=== PATIENT | male | born 1945 | race African-American/Black ===

== ENCOUNTER 2020-01-24 12:18 | Outpatient (CLI) | payer MEDICARE, SELFPAY ==
--- NOTE | 2020-01-24 13:00 | NEURO_ITS ---
TEST: ELECTROENCEPHALOGRAM DIAGNOSIS: SEIZURES PATIENT NUMBER: [id number] EEG NUMBER: [id number] RECORDING DATE: 01/24/20 CONDITION OF RECORDING: Awake, drowsy and sleep EEG DESCRIPTION: Basic resting occipital frequency consists of minimal amount of poorly organized low voltage 8-10hz alpha mixed with low voltage 15-21hz beta. During drowsiness low voltage beta activity is seen diffusely mixed with waxing and waning posterior alpha rhythms. Bilateral symmetrical sleep activity is seen during sleep. Photic stimulation produced normal drive. Nonparoxysmal. Nonfocal. Nonlateralizing. IMPRESSION: Normal record. [facility]
== END 2020-01-24 12:19 | disposition home or self-care (01) ==
PROVIDERS: PCP Internal Medicine; Visit Provider Internal Medicine
DX: G40.909 Epilepsy, unspecified, not intractable, without status epilepticus (principal)
CPT/HCPCS: 95816

== ENCOUNTER 2020-01-25 15:30 | Emergency (ER) | payer MEDICARE, SELFPAY ==
--- NOTE | ~2020-01-25 | XR_ITS ---
XR wrist RT min 3V 01/25/2020 17:38 Indication: Right wrist pain Procedure: 4 views right wrist Comparison: No prior studies for comparison. Findings: There is polyarticular osteoarthritis of the triscaphe, first CMC, MCP and IP joints. Ghislaine l mineralization. No acute fracture or traumatic malalignment. Scaphoid intact. No focal soft tissue abnormality. There are arterial calcifications. Impression: 1: Mild-moderate polyarticular osteoarthritis. Reviewed, dictated and finalized at location A. Impression: 1: Mild-moderate polyarticular osteoarthritis.
--- NOTE | ~2020-01-25 | XR_ITS ---
XR elbow RT min 3V 01/25/2020 17:37 INDICATION: Right elbow pain PROCEDURE: 4 views right elbow COMPARISON: No prior studies for comparison. FINDINGS: Fracture, dislocation or subluxation is not identified. No significant joint effusion. The soft tissues appear within normal limits. No foreign bodies are identified. IMPRESSION: 1: NO ACUTE BONE OR JOINT ABNORMALITY IDENTIFIED. Reviewed, dictated and finalized at location A.
--- NOTE | ~2020-01-25 | XR_ITS ---
XR shoulder RT min 2V 01/25/2020 17:38 Indication: Right shoulder pain. No acute injury. Procedure: 4 views right shoulder Comparison: No prior studies for comparison. Findings: There is polyarticular osteoarthritis of the glenohumeral and acromioclavicular joints with slight superior subluxation of the humeral head, suspicious for rotator cuff tear. No acute fracture or traumatic malalignment. 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 If there is clinical concern for rotator cuff tear, correlation with MRI is recommended. Reviewed, dictated and finalized at location A. 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 If there i s clinical concern for rotator cuff tear, correlation with MRI is recommended.
[2020-01-25 15:36] VITALS: BP 171/77; PULSE 50; RESP 12; TEMP 36.5; O2SAT 100
[2020-01-25 16:02] VITALS: BP 180/84; PULSE 50; RESP 14; O2SAT 91
--- NOTE | 2020-01-25 16:52 | ECG_ITS ---
Measurements Intervals [place] Rate: 60 P: 60 [place]: 155 QRS: -7 QRSD: 95 T: 17 QT: 455 QTc: 455 Interpretive Statements SINUS RHYTHM EARLY PRECORDIAL R/S TRANSITION LEFT VENTRICULAR HYPERTROPHY AND ST-T CHANGE BORDERLINE T WAVE ABNORMALITY- INF/LAT LEADS BASELINE ARTIFACT- I, II, III, AVR, AVL, AVF BORDERLINE ECG Electronically Signed On 01-26-2020 7:04:46 CDT by Familia Reynolds D.O.
[2020-01-25 17:01] VITALS: BP 173/73; PULSE 61; RESP 15; O2SAT 100
[2020-01-25 17:13] LABS: Basophils Absolute Auto 0.1 K/mm3 (0.0-0.1); Basophils Percent Auto 1.3 % (0.2-1.2); Eosinophils Absolute Auto 0.3 K/mm3 (0-0.3); Eosinophils Percent Auto 3.7 % (0-4.4); Hemoglobin 13.3 g/dL (14.0-18.0); Immature Granulocyte Absolute 0.08 K/mm3 (0.00-0.031); Immature Granulocyte Percent A 0.9 % (0-0.5); Lymphocytes Absolute Auto 2.14 K/mm3 (0.9-3.2); Lymphocytes Percent Auto 25.3 % (18.3-44.2); Mean Corpuscular HGB Conc 32.4 g/dl (32-36); Mean Corpuscular Hemoglobin 30.2 pg (26-34); Mean Platelet Volume 10.6 fl (7.4-10.4); Monocytes Absolute Auto 0.8 K/mm3 (0.1-0.6); Monocytes Percent Auto 8.9 % (2.6-8.5); Neutrophils Absolute Auto 5.1 K/mm3 (1.3-6.7); Neutrophils Percent Auto 59.9 % (45.5-73.1); Platelet Count Result 259 k/mm3 (150-375); Red Blood Count 4.41 M/mm3 (4.6-6.20); Red Cell Distribution Width 14.9 % (11.5-14.5); White Blood Count 8.5 K/mm3 (4.5-10.0)
[2020-01-25 17:25] LABS: Blood Urea Nitrogen 18 mg/dL (9-20); Carbon Dioxide 29 mmol/L (22-30); Chloride 107 mmol/L (98-107); Estimated CRCL calculation 71 ml/min; Estimated Glomerular Filt Rate > 60; Glucose 78 mg/dL (75-110); Potassium 4.1 mmol/L (3.4-5.0); Sodium 141 mmol/L (137-145)
[2020-01-25 17:33] LABS: NT Pro B Type Natriuretic Pept 85 PG/ML (5-100)
--- NOTE | 2020-01-25 17:52 | ED.UPPEXIN ---
HPI - Extremity Injury (Upper) General Chief Complaint: Extremity Injury, Upper Stated Complaint: R ARM PAIN Time Seen by Provider: 01/25/20 16:25 Source: patient Mode of arrival: EMS Limitations: dementia History of Present Illness HPI narrative: This is a 74 year old male that presents to the ER for right arm pain that started just prior to arrival. No recent injury or trauma. Per daughter patient was crying and grabbing his right arm. She called EMS and by the time they were there the patient was no longer complaining of any pain. Currently has no complaints. Denies fever, cold symptoms, chest pain, shortness of breath, abdominal pain, or vomiting. Related Data Home Medications Medication Instructions Recorded Confirmed Adult Low Dose Aspirin 81 mg PO DAILY 01/25/20 01/25/20 Keppra 500 mg PO BID 01/25/20 01/25/20 Allergies Allergy/AdvReac Type Severity Reaction Status Date / Time No Known Allergies Allergy Verified 01/25/20 15:43 Review of Systems Review of Systems: Narrative: CONSTITUTIONAL: Denies fever CARDIOVASCULAR: Denies chest pain, or edema. RESPIRATORY: Denies cough or dyspnea. GASTROINTESTINAL: Denies abdominal pain, nausea, vomiting GENITOURINARY: Denies dysuria or hematuria. MUSCULOSKELETAL: Reports joint pain, and myalgia. NEUROLOGIC: Denies numbness All systems reviewed & are unremarkable except as noted in HPI and below PMFSH Past Medical History Medical History (Updated 01/25/20 @ 18:06 by Margarette Quintero PA-C) History of CVA (cerebrovascular accident) History of seizures Social History Social History Gender identity (if verbalized by the patient): Male Exam Narrative: Exam Narrative: GENERAL: Well-appearing, well-nourished, and in no acute distress. HEAD: Normocephalic, atraumatic. EYES: PERRLA and EOMI. ENT: Nares clear, no rhinorrhea or epistaxis. Mucous membranes moist. Oropharynx without tonsillar hypertrophy exudate or other lesions. Bilateral TMs pearly rouse non-bulging NECK: Supple. No adenopathy or masses. CHEST: Clear to auscultation. No respiratory distress. No wheezes rales or rhonchi HEART: Regular rate and rhythm. No murmur heard. Normal peripheral pulses. ABDOMEN: Soft, nontender, nondistended, normal active bowel sounds. EXTREMITIES: Normal range of motion. No edema, erythema or obvious deformity. Strength equal in bilateral upper and lower extremities SKIN: Warm, dry, no rash. NEURO: No focal deficits. Alert and oriented x2. PSYCH: Normal mood and affect Course Vital Signs Vital signs: Vital Signs Temperature 97.7 F 01/25/20 15:36 Pulse Rate 50 L 01/25/20 15:36 Respiratory Rate 12 01/25/20 15:36 Blood Pressure 171/77 H 01/25/20 15:36 Pulse Oximetry 100 01/25/20 15:36 Temperature 97.7 F 01/25/20 15:36 Pulse Rate 50 L 01/25/20 15:36 Respiratory Rate 12 01/25/20 15:36 Blood Pressure 171/77 H 01/25/20 15:36 Pulse Oximetry 100 01/25/20 15:36 MDM - Extremity Injury (Upper) MDM Narrative Medical decision making narrative: Patient presents to the emergency department for right arm pain just prior to arrival. Patient with history of dementia. Accompanied by his daughter whom he lives with. Daughter reports patient was grabbing at right arm and crying about pain. No injury or trauma to the area. Patient is neurologically at his baseline. On arrival vitals are notable for high blood pressure. Patient currently has no complaints. CBC with mild normocytic anemia. Metabolic panel and BNP without acute changes. EKG with left ventricular hypertrophy. Right wrist, elbow and shoulder Xrays are without acute changes. Patient and family updated on case findings. They were instructed to follow-up with primary care doctor for high blood pressure. They were given warnings to return to the ER Lab Data Attestation: I reviewed the patient's lab results. Result diagrams: 01/25/20 17:06 01/25/20 17:06 Labs: Lab Results
[2020-01-25 18:21] VITALS: BP 170/70; PULSE 58; RESP 20; O2SAT 98
== END 2020-01-25 18:24 | disposition home or self-care (01) ==
PROVIDERS: Physician Assistant; Emergency Provider Emergency Medicine; PCP Internal Medicine
DX: M79.601 Pain in right arm (principal); F03.90 Unspecified dementia, unspecified severity, without behavioral disturbance, psychotic disturbance, mood disturbance, and anxiety; Z86.73 Personal history of transient ischemic attack (TIA), and cerebral infarction without residual deficits; M19.031 Primary osteoarthritis, right wrist; M19.011 Primary osteoarthritis, right shoulder; R94.31 Abnormal electrocardiogram [ECG] [EKG]; I51.7 Cardiomegaly
CPT/HCPCS: 36415; 73030; 73080; 73110; 80048; 83880; 85025; 93005; 99284

== ENCOUNTER 2020-04-04 20:00 | Emergency (ER) | payer SELFPAY ==
--- NOTE | ~2020-04-04 | XR_ITS ---
EXAMINATION: XR chest 1V portable INDICATION: Transient alteration of awareness TECHNIQUE: Portable AP chest at 2058 hours COMPARISON: None available FINDINGS: The lungs are free of acute opacities. There is no pleural effusion or pneumothorax. The he art size is upper limits of normal for technique. IMPRESSION: 1. No acute cardiopulmonary abnormality. Reviewed, dictated and finalized at location A.
[2020-04-04 20:05] VITALS: BP 155/75; PULSE 73; RESP 16; TEMP 36.9; O2SAT 98
--- NOTE | 2020-04-04 20:09 | ECG_ITS ---
Measurements Intervals [place] Rate: 68 P: 44 IN: 144 QRS: -12 QRSD: 86 T: 128 QT: 415 QTc: 444 Interpretive Statements SINUS RHYTHM WITH SINUS ARRHYTHMIA EARLY PRECORDIAL R/S TRANSITION LEFT VENTRICULAR HYPERTROPHY AND ST-T CHANGE BORDERLINE T WAVE ABNORMALITY- DIFFUSE LEADS BORDERLINE ECG Electronically Signed On 04-05-2020 6:52:27 CDT by Familia Reynolds D.O.
[2020-04-04 20:58] LABS: Basophils Absolute Auto 0.1 K/mm3 (0.0-0.1); Basophils Percent Auto 0.9 % (0.2-1.2); Eosinophils Percent Auto 0.7 % (0-4.4); Hematocrit 40.7 % (42.0-52.0); Hemoglobin 13.2 g/dL (14.0-18.0); Immature Granulocyte Absolute 0.03 K/mm3 (0.00-0.031); Immature Granulocyte Percent A 0.5 % (0-0.5); Lymphocytes Absolute Auto 1.75 K/mm3 (0.9-3.2); Lymphocytes Percent Auto 30.8 % (18.3-44.2); Mean Corpuscular HGB Conc 32.4 g/dl (32-36); Mean Corpuscular Hemoglobin 29.3 pg (26-34); Mean Corpuscular Volume 90.4 fl (80-100); Mean Platelet Volume 10.3 fl (7.4-10.4); Monocytes Absolute Auto 0.7 K/mm3 (0.1-0.6); Monocytes Percent Auto 12.7 % (2.6-8.5); Neutrophils Absolute Auto 3.1 K/mm3 (1.3-6.7); Neutrophils Percent Auto 54.4 % (45.5-73.1); Platelet Count Result 209 k/mm3 (150-375); Red Cell Distribution Width 14.8 % (11.5-14.5); White Blood Count 5.7 K/mm3 (4.5-10.0)
--- NOTE | 2020-04-04 21:07 | PC.NURSE ---
Spoke with patient's daughter who confirms this is his normal mental status following his CVA in 2016. She states he is usually alert and oriented x1. Updated her on his status and she stated she would call back to check on him later.
[2020-04-04 21:09] LABS: Add Urine Microscopic? YES; Appearance Urine Clear (Clear); Bacteria Urine 1+ /hpf; Bilirubin Urine Negative (Negative); Color Urine Yellow (Yellow); Glucose Urine UA Negative (Negative); Ketones Urine Negative (Negative); Leukocyte Esterase Ur 2+ LEU/UL (Negative); Mucus Urine Rare /lpf; Nitrate Urine Positive (Negative); Protein Urine Negative (Negative); Specific Grav Ur 1.023 (1.001-1.035); Urobilinogen Urine Negative mg/dL (<2.0); WBC Urine 31-50 /hpf
[2020-04-04 21:10] LABS: Alanine Aminotransferase 21 U/L (4-50); Albumin Level 3.9 g/dL (3.5-5.1); Alkaline Phosphatase 72 U/L (38-126); Aspartate Amino Transferase 21 U/L (17-59); Bilirubin,Total 0.2 mg/dL (0.2-1.3); Blood Urea Nitrogen 16 mg/dL (9-20); Calcium 8.6 mg/dL (8.4-10.2); Carbon Dioxide 25 mmol/L (22-30); Chloride 106 mmol/L (98-107); Estimated CRCL calculation 71 ml/min; Estimated Glomerular Filt Rate > 60; Glucose 159 mg/dL (75-110); Potassium 3.9 mmol/L (3.4-5.0); Sodium 138 mmol/L (137-145)
[2020-04-04 21:11] LABS: Blood Urine Negative (Negative)
[2020-04-04 21:11] LABS: Prothrombin Time 13.1 Seconds (11.1-14.7)
[2020-04-04 21:12] LABS: Partial Thromboplastin Time 29.4 SECONDS (22.3-36.8)
[2020-04-04 21:22] LABS: Troponin I 0.015 ng/mL (0.000-0.034)
[2020-04-04 21:52] VITALS: BP 149/80; PULSE 63; RESP 15; O2SAT 98
[2020-04-04 22:13] VITALS: BP 155/80; PULSE 88; RESP 16; O2SAT 98
--- NOTE | 2020-04-04 23:09 | ED.AMS ---
HPI - Altered Mental Status General Chief Complaint: Altered Mental Status Stated Complaint: AMS Time Seen by Provider: 04/04/20 20:14 History of Present Illness HPI narrative: Patient is a 79-year-old male who presents the ER from his shelter. Apparently he was found walking around him because of all the staff having left the shelter prior to shift change nobody knew if this was his normal mental status or not and he was sent here for further evaluation. Patient is alert and oriented to self and somewhat to place. He cannot give any additional history about his health. He has no complaints of pain. He has no distress at this time. Related Data Home Medications Medication Instructions Recorded Confirmed Aspir-81 04/04/20 buspirone 5 mg PO BID 04/04/20 04/04/20 levetiracetam 500 mg PO BID 04/04/20 04/04/20 memantine-donepezil [Namzaric] 1 cap PO DAILY 04/04/20 04/04/20 Allergies Allergy/AdvReac Type Severity Reaction Status Date / Time No Known Allergies Allergy Verified 04/04/20 21:46 Review of Systems Review of Systems: ROS unobtainable: Yes unobtainable due to mental status PMFSH Past Medical History Medical History (Updated 04/04/20 @ 23:15 by Severo Nieves MD) CVA (cerebral vascular accident) Dementia Surgical History Surgical History (Updated 04/04/20 @ 23:10 by Severo Nieves MD) Surgical history unknown Social History Social History (Updated 04/04/20 @ 23:13 by Severo Nieves MD) Social History: lives at [facility] Exam Narrative: Exam Narrative: GENERAL: Well-appearing, well-nourished, and in no acute distress. HEAD: Normocephalic, atraumatic. EYES: PERRL and EOMI. ENT: Mucous membranes moist. CHEST: Clear to auscultation. No respiratory distress. HEART: Regular rate and rhythm. Normal peripheral pulses. ABDOMEN: Soft, nontender, nondistended EXTREMITIES: Normal range of motion. No edema. SKIN: Warm, dry, no rash. NEURO: Alert and oriented 1-x2. Clear speech. Course Course Emergency Course: Ceftriaxone for UTI. Discharge with antibiotics. Family contacted and this is patient's normal baseline. Vital Signs Vital signs: Vital Signs Temperature 98.5 F 04/04/20 20:05 Pulse Rate 73 04/04/20 20:05 Respiratory Rate 16 04/04/20 20:05 Blood Pressure 155/75 H 04/04/20 20:05 Pulse Oximetry 98 04/04/20 20:05 Temperature 98.5 F 04/04/20 20:05 Pulse Rate 88 04/04/20 22:13 Respiratory Rate 16 04/04/20 22:13 Blood Pressure 155/80 H 04/04/20 22:13 Pulse Oximetry 98 04/04/20 22:13 MDM - Altered Mental Status Lab Data Result diagrams: 04/04/20 20:24 04/04/20 20:24 Labs: Lab Results 04/04/20 04/04/20 04/04/20 Range/Units 20:23 20:24 20:24 WBC 5.7 (4.5-10.0) K/mm3 RBC 4.50 L (4.6-6.20) M/mm3 Hgb 13.2 L (14.0-18.0) g/dL Hct 40.7 L (42.0-52.0) % MCV 90.4 (80-100) fl MCH 29.3 (26-34) pg MCHC 32.4 (32-36) g/dl RDW 14.8 H (11.5-14.5) % Plt Count 209 (150-375) k/mm3 MPV 10.3 (7.4-10.4) fl Immature Gran % (Auto) 0.5 (0-0.5) % Neut % (Auto) 54.4 (45.5-73.1) % Lymph % (Auto) 30.8 (18.3-44.2) % Crisp % (Auto) 12.7 H (2.6-8.5) % Eos % (Auto) 0.7 (0-4.4) % Baso % (Auto) 0.9 (0.2-1.2) % Lymph # (Auto) 1.75 (0.9-3.2) K/mm3 Crisp # (Auto) 0.7 H (0.1-0.6) K/mm3 Eos # (Auto) 0.0 (0-0.3) K/mm3 Baso # (Auto) 0.1 (0.0-0.1) K/mm3 Abs Immat Gran (auto) 0.03 (0.00-0.031) K/mm3 Absolute Neuts (auto) 3.1 (1.3-6.7) K/mm3 Absolute Nucleated RBC 0.0 (0.0-0.012) K/mm3 Nucleated RBC % 0.0 (0.0-0.2) % PT 13.1 (11.1-14.7) Seconds INR 1.0 APTT 29.4 (22.3-36.8) SECONDS Sodium 138 (137-145) mmol/L Potassium 3.9 (3.4-5.0) mmol/L Chloride 106 (98-107) mmol/L Carbon Dioxide 25 (22-30) mmol/L BUN 16 (9-20) mg/dL Creatinine 0.80 (0.7-1.3) mg/dL Estim Cr
[2020-04-04 23:17] VITALS: BP 157/90; PULSE 63; RESP 15; O2SAT 98
--- NOTE | 2020-04-05 00:46 | PC.NURSE ---
[facility] are unable to find the patients chart, to give me anyone to contact to provide patient a ride [place].
== END 2020-04-05 03:00 ==
PROVIDERS: Emergency Provider Emergency Medicine
DX: N39.0 Urinary tract infection, site not specified (principal); Z86.73 Personal history of transient ischemic attack (TIA), and cerebral infarction without residual deficits; F03.90 Unspecified dementia, unspecified severity, without behavioral disturbance, psychotic disturbance, mood disturbance, and anxiety
CPT/HCPCS: 36415; 51701; 71045; 80053; 81001; 84484; 85025; 85610; 85730; 87077; 87086; 87088; 87186; 93005; 96365; 99284; J0696

== ENCOUNTER 2020-11-12 10:01 | Observation (INO) | payer MEDICARE, MEDICAID, SELFPAY ==
--- NOTE | ~2020-11-12 | XR_ITS ---
EXAMINATION: XR barium swallow modified DATE: 11/13/2020 11:09 INDICATION: Dysphagia. TECHNIQUE: The patient was given barium-containing material of multiple consistencies to swallow by amy wilson speech pathologist while I performed fluoroscopy. Dose-area product was 2.66 Gy-cm2. 3.2 minutes fluoroscopy time FINDINGS: Oral Stage: Within functional limits Pharyngeal Phase: There was premature spillover into the pharynx with each swallow Mildly delayed swallows. Reduced tongue base retraction. Mild vallecular and piriform sinus residue Cervical/Esophageal Stage: Within functional limits IMPRESSION: Modified esophagram findings as above. Please refer to the speech therapy [facility]. Reviewed, dictated and finalized at Location A. Reviewed, dictated and finalized at location A. L ENGRAVER IMPRESSION: Modified esophagram findings as above. Please refer to the speech t herapy report for specific recommendations.
--- NOTE | ~2020-11-12 | MR_ITS ---
EXAMINATION: MR brain/brain stem wo/w con EXAM DATE: 11/13/2020 08:47 INDICATION: Unresponsive. TECHNIQUE: Magnetic resonance imaging (MRI) of the brain/brain stem obtained without contrast. Sagit tr T1, axial diffusion, gradient echo (T2*), T1, T2, FLAIR sequences obtained. Patient was then inj ected with 15 cc intravenous Multihance contrast. Axial and coronal postcontrast T1 weighted sequence s obtained. Correlation is made to head CT from 11/12/2020. FINDINGS: There are no areas of restricted diffusion to suggest acute infarction. There is no acute hemorrhage seen on the T2*, a hemosiderin sensitive sequence. No intraparenchymal brain mass lesion. There our moderate-sized old left occipital, and small old right occipital infarctions. Old bilater al basal ganglia infarctions better visualized on head CT. There is old small left cerebellar infarct ion. There is extensive periventricular and subcortical T2/FLAIR signal hyperintensity, nonspecific b ut probably related to small vessel ischemic disease (microangiopathy). There is moderate prominenc e of the sulci and ventricles related to cerebral atrophy. There are no extra-axial collections. F low voids are seen in the cerebral arteries on the T2-weighted sequences consistent with their expect ed patency. The orbits are unremarkable. Soft tissue is unremarkable. Suboptimal enhancement on the postcontrast sequence, with no regions of abnormal enhancement suspected. IMPRESSION: 1. Old bilateral basal ganglia and occipital, left cerebellar infarctions. 2. Chronic age related findings. Reviewed, dictated and finalized at location B. OR PRODUCT DEVELOPMENT MANAGER
--- NOTE | ~2020-11-12 | CT_ITS ---
EXAMINATION: CT brain wo con EXAM DATE: 11/12/2020 11:43 INDICATION: Altered mental status. TECHNIQUE: Spiral CT of the head was performed without contrast. Axial, coronal and sagittal images were reviewed. The dose-length product (DLP) for this examination was 605.33 mGy-cm. The exposure w as tailored according to patient size, and iterative reconstruction (ASIR) was used as additional dos e reduction technique. There is no prior study for comparison. FINDINGS: There is no acute intraparenchymal hemorrhage. No evidence of intraparenchymal brain mass lesion. No evidence of acute infarction. Please note that initial head CT has limited sensitivity f or small or acute infarctions. There is moderate-sized old left occipital lobe infarction, small old right occipital lobe infarction. There is moderate to severe periventricular and subcortical hypode nsity, nonspecific but probably related to small vessel ischemic disease. There is mild to moderate prominence of the sulci and ventricles related to cerebral atrophy. There are bilateral basal gangli a and right caudate head lacunar infarctions. There is intracranial carotid arteriosclerosis. There are no extra-axial collections. There is no mass effect or midline shift. The orbits are unremarka ble. Soft tissue is unremarkable. The visualized sinuses and mastoid air cells are well aerated. IMPRESSION: 1. No acute intracranial findings. 2. Chronic age related findings. 3. Old infarctions. Reviewed, dictated and finalized at location B. ER MACHINIST
--- NOTE | ~2020-11-12 | US_ITS ---
EXAMINATION: US carotid duplex BI DATE: 11/12/2020 17:36 INDICATION: TECHNIQUE: Grayscale, color Doppler, and pulsed Doppler images of the cervical carotid arteries were obtained. The degree of vessel stenosis is placed in one of the following categories: normal, <50%, 5 0-69%, >=70% but less than near-occlusion, near-occlusion, or total occlusion. Note that percent sten osis relative to normal distal artery lumen diameter is indirectly measured from velocity measurement s as described by Erich, et al. Radiology 2003; 229:340-346. Notes: Normal: Peak systolic velocity <125 centimeters/sec and no plaque <50%. Peak systolic velocity <125 ( EDV <40; ICA/CCA PSV ratio <2.0; used these factors only a tandem lesions or low cardiac output or co ntralateral disease) 50-69 %: PSV 125-230 (EDV 40-100; ratio 2-4) >= 70% but less than near occlusion: PSV greater than 230 (EDV > 100; ratio> 4.0) Near Occlusion: PSV that is variable; markedly narrowed lumen Occlusion: Absent flow on color/spectral Doppler and no lumen on rouse scale. COMPARISON: None. FINDINGS: RIGHT: The right common carotid artery (CCA) peak systolic velocity (PSV) is 60 cm/s. The right internal car otid artery (ICA) PSV is 65 cm/s. The right ICA end-diastolic velocity (EDV) is 23 cm/s. The right IC A/CCA PSV ratio is 1.1. The external carotid artery (ECA) PSV is 55 cm/s. There is antegrade flow in the right vertebral artery. LEFT: The left CCA PSV is 63 cm/s. The left ICA PSV is 55 cm/s. The left ICA EDV is 20 cm/s. The left ICA/C CA PSV ratio is 0.9. The ECA PSV is 52 cm/s. There is antegrade flow in the left vertebral artery. IMPRESSION: 1. Less than 50% stenosis in the right internal carotid artery by sonographic criteria. 2. Less than 50% stenosis in the left internal carotid artery by sonographic criteria. Reviewed, dictated and finalized at location A. S [employer] IMPRESSION: 1. Less than 50% stenosis in the right internal carotid artery by sonographic roosevelt goel. 2. Less than 50% stenosis in the left internal carotid artery by sonographic rebeca lopez.
--- NOTE | ~2020-11-12 | XR_ITS ---
XR chest 1V portable DATE: 11/12/2020 13:18 INDICATION: Altered mental status, stupor. TECHNIQUE: Portable upright AP chest on November 12, 2020 COMPARISON: 04/04/2020 portable AP chest FINDINGS: Minimal infiltrate or atelectasis at the lung bases; otherwise no pulmonary infiltrate or c onsolidation, pleural effusion or pulmonary vascular congestion or pneumothorax is detected. Aortic unfolding. No hilar or mediastinal enlargement. IMPRESSION: Minimal infiltrate or atelectasis at lung bases Reviewed, dictated and finalized at location A. FISHER
[2020-11-12 10:00] VITALS: BP 160/71; PULSE 65; RESP 16; TEMP 35.6; O2SAT 98
--- NOTE | 2020-11-12 10:23 | ECG_ITS ---
Measurements Intervals [place] Rate: 62 P: 52 MA: 168 QRS: -14 QRSD: 86 T: 3 QT: 421 QTc: 428 Interpretive Statements SINUS RHYTHM EARLY PRECORDIAL R/S TRANSITION LEFT VENTRICULAR HYPERTROPHY AND ST-T CHANGE BORDERLINE ST-T WAVE ABNORMALITY- DIFFUSE LEADS BASELINE WANDER- AVR, AVL, AVF BORDERLINE ECG Electronically Signed On 11-12-2020 10:32:53 LICENSED SALES PRODUCER by Familia Reynolds D.O.
[2020-11-12 10:45] LABS: Basophils Absolute Auto 0.1 K/mm3 (0.0-0.1); Basophils Percent Auto 1.2 % (0.2-1.2); Eosinophils Absolute Auto 0.2 K/mm3 (0-0.3); Eosinophils Percent Auto 3.3 % (0-4.4); Hematocrit 42.5 % (42.0-52.0); Hemoglobin 13.8 g/dL (14.0-18.0); Immature Granulocyte Absolute 0.02 K/mm3 (0.00-0.031); Immature Granulocyte Percent A 0.3 % (0-0.5); Lymphocytes Absolute Auto 1.85 K/mm3 (0.9-3.2); Lymphocytes Percent Auto 27.7 % (18.3-44.2); Mean Corpuscular HGB Conc 32.5 g/dl (32-36); Mean Corpuscular Hemoglobin 29.7 pg (26-34); Mean Corpuscular Volume 91.4 fl (80-100); Mean Platelet Volume 10.1 fl (7.4-10.4); Monocytes Absolute Auto 0.6 K/mm3 (0.1-0.6); Monocytes Percent Auto 8.4 % (2.6-8.5); Neutrophils Absolute Auto 3.9 K/mm3 (1.3-6.7); Neutrophils Percent Auto 59.1 % (45.5-73.1); Platelet Count Result 224 k/mm3 (150-375); Red Blood Count 4.65 M/mm3 (4.6-6.20); Red Cell Distribution Width 14.3 % (11.5-14.5); White Blood Count 6.7 K/mm3 (4.5-10.0)
[2020-11-12 10:47] LABS: Add Urine Microscopic? NO; Appearance Urine Clear (Clear); Bilirubin Urine Negative (Negative); Blood Urine Negative (Negative); Color Urine Yellow (Yellow); Glucose Urine UA Negative (Negative); Ketones Urine Negative (Negative); Leukocyte Esterase Ur Negative LEU/UL (Negative); Nitrate Urine Negative (Negative); Protein Urine Negative (Negative); Specific Grav Ur 1.017 (1.001-1.035); Urobilinogen Urine Negative mg/dL (<2.0)
[2020-11-12 10:56] LABS: Alanine Aminotransferase 23 U/L (4-50); Albumin Level 3.8 g/dL (3.5-5.1); Alkaline Phosphatase 56 U/L (38-126); Anion Gap 7 mmol/L (8-16); Aspartate Amino Transferase 23 U/L (17-59); Bilirubin,Total 0.5 mg/dL (0.2-1.3); Blood Urea Nitrogen 14 mg/dL (9-20); Carbon Dioxide 28 mmol/L (22-30); Chloride 107 mmol/L (98-107); Estimated CRCL calculation 57 ml/min; Estimated Glomerular Filt Rate > 60; Glucose 103 mg/dL (75-110); Potassium 3.8 mmol/L (3.4-5.0); Sodium 142 mmol/L (137-145)
--- NOTE | 2020-11-12 11:09 | ED.AMS ---
HPI - Altered Mental Status General Chief Complaint: Altered Mental Status Stated Complaint: Altered Time Seen by Provider: 11/12/20 11:08 History of Present Illness HPI narrative: 74 yo male w/ h/o CVA, seizure presents to the ED from [facility] for AMS. He was reportedly only responsive to pain. Noted to have pinpoint pupils, not on any opioids. He is reportedly normally confused but conversational. On my evaluation He is oriented x2, but somnolent. He says that he feels fine. No reported seizure activity. History limited due to mental status. Related Data Home Medications Medication Instructions Recorded Confirmed buspirone 5 mg PO BID 04/04/20 11/12/20 levetiracetam 500 mg PO BID 04/04/20 11/12/20 memantine-donepezil [Namzaric] 1 cap PO DAILY 04/04/20 11/12/20 acetaminophen 500 mg PO BID 11/12/20 11/12/20 aspirin 81 mg PO DAILY 11/12/20 11/12/20 cholecalciferol (vitamin D3) 1,250 mcg PO MONTHLY 11/12/20 11/12/20 Allergies Allergy/AdvReac Type Severity Reaction Status Date / Time No Known Allergies Allergy Verified 04/15/20 09:21 Review of Systems Review of Systems: ROS unobtainable: Yes unobtainable due to mental status PMFSH Past Medical History Medical History CVA (cerebral vascular accident) Dementia History of CVA (cerebrovascular accident) History of seizures Surgical History Surgical History Surgical history unknown Family History Family History Unknown Unknown family medical history Social History Social History Social History: lives at [facility]. The patient is listed as a full code. Smoking history not now alcohol history not known. Patient was listed as being on the penitentiary papers. he is retired. Angelica is listed as the spouse in the emergency contact number and cooper tobar is listed as the daughter in his chart. Smoking packs per day: 0.5 Smoking cigarettes per day: 10.0 Years smoked: 50 Smoking pack-years: 25.00 Smoking status: Former smoker Tobacco type: cigarettes Gender identity (if verbalized by the patient): Male Spiritual care concerns: No Exam Const: General: healthy appearing, no acute distress and alert Nutritional Appearance: well nourished Orientation/consciousness: patient oriented x3 HENMT: Mouth: Yes dry mucous membranes Eyes: Other: pupils 1 mm bilaterally Neck: Neck: normal visual inspection Chest: Chest palpation & inspection: normal inspection of the chest Resp: Effort & Inspection: normal respiratory effort Auscultation: clear to auscultation bilaterally Cardio: Rate: bradycardic Rhythm: regular rhythm GI: GI Palp: Yes Soft to palpation and No Tenderness to palpation present (GI) Skin: General skin exam: normal color Neuro: General: patient oriented x3, moves all extremities and CN's II-XI intact bilaterally Extrem: General: normal to inspection and no edema Course Vital Signs Vital signs: Vital Signs Temperature 35.6 C L 11/12/20 10:00 Pulse Rate 65 11/12/20 10:00 Respiratory Rate 16 11/12/20 10:00 Blood Pressure 160/71 H 11/12/20 10:00 Pulse Oximetry 98 11/12/20 10:00 Temperature 36.8 C 11/13/20 06:00 Pulse Rate 66 11/13/20 06:00 Respiratory Rate 16 11/13/20 06:00 Blood Pressure 168/84 H 11/13/20 06:00 Pulse Oximetry 100 11/13/20 06:00 MDM - Altered Mental Status MDM Narrative Medical decision making narrative: All testing essentially negative. Pateint has no complaints, but is not willing or able to provide additional information. Family states that this is not his usual baseline. I will plan to admit for observation due to ongoing altered mental status Differential Diagnosis Differential diagnosis: Likely delirium, dementia, hypoglycemia,
[2020-11-12] MEDS: SODIUM CHLORIDE 0.9% IV 1,000 ML 999 ML IV CONT (11:34)
[2020-11-12 12:55] LABS: Alveolar/Arterial O2 Gradient 9.3 mmHg; Base Excess ABG -0.3 mEq/l (+/-2.0); Fractional Inspired Oxygen 21 %; HCO3 ABG 23.9 mEq/l (22.0-26.0); Oxygen Content ABG 18.8 %vol (16.0-22.0); Oxygen Saturation ABG 97.4 % (95.0-100.0); Oxyhemoglobin 96.3 % THb (90.0-100.0); PCO2 ABG 38.1 mmHg (35.0-45.0); PO2 ABG 94.8 mmHg (80.0-100.0); PO2 FiO2 Ratio Arterial Blood 4.51 %; Total Hemoglobin 13.8 g/dL (12.0-18.0); pH ABG 7.416 (7.350-7.450)
[2020-11-12 12:56] LABS: Site Drawn LEFT BRACHIAL
[2020-11-12 12:57] LABS: Device ROOM AIR
[2020-11-12 14:43] VITALS: BP 136/71; PULSE 60; RESP 16; O2SAT 100
[2020-11-12 15:30] VITALS: BP 156/76; PULSE 57; RESP 16; TEMP 36.2; O2SAT 97; BMI 22.1
--- NOTE | 2020-11-12 15:30 | ADMGEN ---
This patient, Truman Jensen, was admitted to Medical Room 345-01. Patient/family oriented to hospital policies and general routines including ID bracelet, bed and alarms, visiting hours, pain management, procedures, bathroom and other care routines, personal items, smoking policy, room service/diet, and visiting hours. Information on how to activate the Rapid Response Team has been discussed. Patient/Family are encouraged to report perceived risks to care and to ask questions if they do not understand what they are told or what they should do.
[2020-11-12 16:00] VITALS: PULSE 66; BMI 25.1
--- NOTE | 2020-11-12 16:35 | PM.IMHP ---
H&P: HPI History of Present Illness Date/Time: 11/12/20 16:35 Chief Complaint: Altered mental status Narrative: Truman Jensen is a 74 year old male the patient came from [facility]. He has a history of dementia, CVA, and seizure. The patient reportedly was only responsive to pain. At that time he was noted to have pinpoint pupils but is on any opiates. Reportedly normally confused but conversational. The patient was orientated times to the emergency room however the patient will not respond to me. He told ER he felt fine. The left side was flaccid but he has a history of having a CVA. Patient CT of the brain shows no acute intracranial findings. Chronic age-related findings. Old infarctions. When I since the patient his pupils were dilated. I had to pry his eyes open because he refused to open them when I asked him to open his eyes. The patient would wiggle his fingers when I asked him. I asked him to move his legs but he refused. I had a difficult time getting him to follow commands. The patient had his eyes open at times and will look around the room. He is not answering any questions at all. ED provider felt that the patient either had the TIA, CVA or if he is now postictal from a seizure. However the patient was not witnessed to have seizure. His urine was negative for any UTI. Chest x-ray was read as minimal infiltrate or atelectasis at Lung bases. patient is being admitted for observation date of service 11/12/2020. Review of Systems Review of Systems: All systems reviewed & are unremarkable except as noted in HPI and below Constitutional: Constitutional: Reports as per HPI and Reports no additional constitutional complaints Eyes: Eyes: Reports as per HPI and Reports no additional eye complaints ENT: Reports system reviewed and no additional complaints, except as documented and Reports Normal hearing present Cardiovascular: Cardiovascular: Reports no additional cardiovascular complaints Respiratory: Respiratory: Reports no additional respiratory complaints and Reports no additional respiratory complaints Gastrointestinal: Gastrointestinal: Reports as per HPI and Reports no additional gastrointestinal complaints Musculoskeletal: Musculoskeletal: Reports no additional musculoskeletal complaints Integumentary/Breasts: Skin/Breast: Reports system reviewed and no additional complaints, except as docu and Reports as per HPI Neurologic: Reports system reviewed and no additional complaints, except as documented, Reports as per HPI and Reports Normal hearing present Psychiatric: Psychiatric: Reports no additional psychiatric complaints and Reports as per HPI Endocrine: Endocrine: Reports no additional endocrine complaints Hematologic/Lymphatic: Hematologic/Lymphatic: Reports no additional hematologic/lymphatic complaints Allergic/Immunologic: Allergic/Immunologic: Reports no additional allergic/immunologic complaints [facility] Past Medical History Medical History CVA (cerebral vascular accident) Dementia History of CVA (cerebrovascular accident) History of seizures Surgical History Surgical History Surgical history unknown Family History Family History (Updated 11/12/20 @ 16:47 by Lynne Meza NP) Unknown Unknown family medical history Social History Social History (Updated 11/12/20 @ 16:49 by Lynne Meza NP) Social History: lives at [facility]. The patient is listed as a full code. Smoking history not now alcohol history not known. Patient was listed as being on the assisted papers. he is retired. Angelica is listed as the spouse in the emergency contact number and cooper tobar is listed as the daughter in his chart. Gender identity (if verbalized by the patient): Male Meds Home Medications and Allergies Home Medicat
[2020-11-12] MEDS: LACTATED RINGERS 1,000 ML 75 ML IV CONT (18:00)
[2020-11-12 20:00] VITALS: PULSE 62
[2020-11-12 21:20] VITALS: BP 156/71; PULSE 66; RESP 16; TEMP 36.1; O2SAT 99
[2020-11-13] VITALS (8 sets, daily range): BP systolic 148–168; BP diastolic 72–84; PULSE 58–74; RESP 16–20; TEMP 36.2–36.8; O2SAT 99–100
--- NOTE | 2020-11-13 | ECHO_ITS ---
Patient Info Name: Truman Jensen Age: 74 years : 1945 Gender: Male Ht: 72 in Wt: 163 lbs BSA: 1.94 m2 HR: 59 bpm BP: 156 / 71 mmHg Heart Rhythm: Sinus Rhythm Technical Quality: Good Exam Date: 11/13/2020 10:17 AM Exam Location: [facility] Pulmonary Exam Room: 345 Patient Status: Outpatient Admit Date: 11/12/2020 Staff Ordering Physician: Lynne Meza NP Supervisor Paper Products: Opal Fernandez RDCS Attending Provider: Marlene Bonilla MD Referring Physician: Susana UGARTE; Exam Type: CA echo doppler color flow Study Info Indications - CVA AMS HTN - unresponsiveness Complete two-dimensional, color flow and Doppler transthoracic echocardiogram is performed. Summary 1. Complete two-dimensional, color flow and Doppler transthoracic echocardiogram is performed. 2. Left ventricular systolic function is normal, estimated at 55%. 3. There is mildly increased left ventricular wall thickness. 4. Hypokinesis of the basal inferior wall. 5. The left ventricular diastolic function is grade I diastolic dysfunction. 6. Left atrial chamber dimension is mildly enlarged. 7. There is trace tricuspid valve regurgitation. 8. No pulmonary hypertension, estimated pulmonary arterial systolic pressure is 29 mmHg. Left Ventricle Left ventricular chamber dimension is normal. Left ventricular systolic function is normal, estimated at 55%. There is mildly increased left ventricular wall thickness. The left ventricular diastolic function is grade I diastolic dysfunction. Hypokinesis of the basal inferior wall. Right Ventricle Right ventricular chamber dimension is normal. Right ventricular systolic function is normal. Left Atria Left atrial chamber dimension is mildly enlarged. Right Atria Right atrial chamber dimension is normal. Aortic Valve The aortic valve is not well visualized. There is no aortic valve stenosis. There is no aortic valve regurgitation. Pulmonic Valve The pulmonic valve is not well visualized. There is trace pulmonic regurgitation. Mitral Valve The mitral valve has thickened leaflets. There is trace mitral valve regurgitation. The mitral valve annulus is mildly calcified. Tricuspid Valve The tricuspid valve leaflets are normal. There is trace tricuspid valve regurgitation. No pulmonary hypertension, estimated pulmonary arterial systolic pressure is 29 mmHg. Pericardium/Pleural The pericardium appears normal. There is trivial pericardial effusion. Inferior Vena Cava Normal inferior vena cava with >50% collapse upon inspiration consistent with normal right atrial pressure, 5 mmHg. Aorta The aortic root size at the sinus of Valsalva is normal. There is mild-moderate aortic atherosclerosis. Left Ventricular Outflow Tract Name Value Normal LVOT 2D LVOT Diameter 2.1 cm LVOT Doppler LVOT Peak Gradient 4 mmHg LVOT Mean Gradient 2 mmHg LVOT VTI 22 cm LVOT VTI/AV VTI Ratio 0.8 LVOT Stroke Volume 81 ml
[2020-11-13 05:51] LABS: Basophils Absolute Auto 0.1 K/mm3 (0.0-0.1); Basophils Percent Auto 0.9 % (0.2-1.2); Eosinophils Absolute Auto 0.3 K/mm3 (0-0.3); Eosinophils Percent Auto 3.5 % (0-4.4); Hematocrit 40.5 % (42.0-52.0); Hemoglobin 13.2 g/dL (14.0-18.0); Immature Granulocyte Absolute 0.02 K/mm3 (0.00-0.031); Immature Granulocyte Percent A 0.3 % (0-0.5); Lymphocytes Absolute Auto 2.26 K/mm3 (0.9-3.2); Lymphocytes Percent Auto 30.5 % (18.3-44.2); Mean Corpuscular HGB Conc 32.6 g/dl (32-36); Mean Corpuscular Hemoglobin 28.9 pg (26-34); Mean Corpuscular Volume 88.6 fl (80-100); Mean Platelet Volume 10.2 fl (7.4-10.4); Monocytes Absolute Auto 0.6 K/mm3 (0.1-0.6); Monocytes Percent Auto 8.1 % (2.6-8.5); Neutrophils Absolute Auto 4.2 K/mm3 (1.3-6.7); Neutrophils Percent Auto 56.7 % (45.5-73.1); Platelet Count Result 233 k/mm3 (150-375); Red Blood Count 4.57 M/mm3 (4.6-6.20); Red Cell Distribution Width 13.8 % (11.5-14.5); White Blood Count 7.4 K/mm3 (4.5-10.0)
[2020-11-13 06:05] LABS: Alanine Aminotransferase 32 U/L (4-50); Albumin Level 3.6 g/dL (3.5-5.1); Alkaline Phosphatase 61 U/L (38-126); Anion Gap 5 mmol/L (8-16); Aspartate Amino Transferase 31 U/L (17-59); Bilirubin,Total 0.8 mg/dL (0.2-1.3); Blood Urea Nitrogen 14 mg/dL (9-20); Calcium 8.9 mg/dL (8.4-10.2); Carbon Dioxide 28 mmol/L (22-30); Chloride 108 mmol/L (98-107); Estimated CRCL calculation 63 ml/min; Estimated Glomerular Filt Rate > 60; Glucose 75 mg/dL (75-110); Magnesium 1.9 mg/dL (1.6-2.3); Potassium 3.8 mmol/L (3.4-5.0); Sodium 141 mmol/L (137-145)
[2020-11-13] MEDS: LACTATED RINGERS 1,000 ML 75 ML IV CONT (07:26)
--- NOTE | 2020-11-13 08:28 | PCOTNOTE ---
Attempted OT evaluation, pt currently down for MRI at this time, will attempt at later time
--- NOTE | 2020-11-13 08:35 | WPDNEURCNPN ---
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 Cerebrovascular accident 2. Seizure disorder 3. Dementia. as per the information available patient was only responsive to pain ,was noted to have pinpoint pupils but patient is also on opiates ,he was oriented to times when he came to the emergency room but otherwise did not respond very well,his left side was flaccid which was attributed to the previous stroke.initial CT scan was negative except the chronic age-related finding and old infarction. his pupils were dilated he was nonresponsive intentionally to the verbal instruction by the hospitalist for at times his eyes were open and he was looking around he was not witnessed to have any seizure on the floor. has ongoing history of stroke with dementia as mentioned before in addition to the seizures. His medications included Keppra 500 mg twice a day, BuSpar 5 mg twice a day ,memantine donepezil combination that is names 1 capsule daily,aspirin 81 mg daily. Routine blood studies were unremarkable,level is pending, carotid Doppler study was negative and CT of the head revealed small old right occipital lobe infarction with moderate to severe periventricular subcortical hypodensity and mild to moderate prominence of the sulci and ventricles secondary to cerebral atrophy Review of Systems Review of Systems: All systems reviewed & are unremarkable except as noted in HPI and below PMFSH Past Medical History Medical History CVA (cerebral vascular accident) Dementia History of CVA (cerebrovascular accident) History of seizures Surgical History Surgical History Surgical history unknown Family History Family History Unknown Unknown family medical history Social History Social History Social History: lives at [facility]. The patient is listed as a full code. Smoking history not now alcohol history not known. Patient was listed as being on the intermediate papers. he is retired. Angelica is listed as the spouse in the emergency contact number and cooper tobar is listed as the daughter in his chart. Smoking packs per day: 0.5 Smoking cigarettes per day: 10.0 Years smoked: 50 Smoking pack-years: 25.00 Smoking status: Former smoker Tobacco type: cigarettes Gender identity (if verbalized by the patient): Male Spiritual care concerns: No Meds Home Medications and Allergies Home Medications Medication Instructions Recorded Confirmed Type buspirone 5 mg PO BID 04/04/20 11/12/20 History levetiracetam 500 mg PO BID 04/04/20 11/12/20 History memantine-donepezil [Namzaric] 1 cap PO DAILY 04/04/20 11/12/20 History acetaminophen 500 mg PO BID 11/12/20 11/12/20 History aspirin 81 mg PO DAILY 11/12/20 11/12/20 History cholecalciferol (vitamin D3) 1,250 mcg PO MONTHLY 11/12/20 11/12/20 History Allergies Allergy/AdvReac Type Severity Reaction Status Date / Time No Known Allergies Allergy Verified 04/15/20 0
--- NOTE | 2020-11-13 11:54 | PCSTNOTE ---
Please refer to the Modified Barium Swallow Evaluation in the EMR.
--- NOTE | 2020-11-13 17:02 | PM.IMPN ---
Progress Note: A&P Assessment and Plan (1) Altered mental status: Code(s): R41.82 - Altered mental status, unspecified Status: Acute Assessment and Plan: Patient seems to be back to baseline however some owning this afternoon Will re start home meds CT head reviewed MRI reviewed (2) History of seizures: Code(s): Z87.898 - Personal history of other specified conditions Status: Chronic Assessment and Plan: Re started Levetiracetam (3) Dementia: Code(s): F03.90 - Unspecified dementia without behavioral disturbance Status: Chronic Assessment and Plan: Re started Memantine (4) CVA (cerebral vascular accident): Code(s): I63.9 - Cerebral infarction, unspecified Status: Acute Assessment and Plan: Old stroke 2DECHO reviewed PT/OT ordered Appreciate Neurology note. Subjective Date/time seen: 11/13/20 17:02 States that he feels well. Review of Systems Review of Systems: ROS unobtainable: Yes unobtainable due to medical condition (Dementia) Exam Narrative: Exam Narrative: Sitting in chair. Const: General: comfortable, no acute distress, alert, awake and Physically active Nutritional Appearance: thin Orientation/consciousness: oriented to person HENMT: Head: normal to inspection and normocephalic Ears: hearing grossly normal bilaterally General nose exam: Normal external nose present Face and sinus: normal facial exam Eyes: General: appearance normal, both eyes and all related structures Pupils: Equal, round and reactive pupils present EOM: EOMs intact bilaterally Neck: Neck: no lymphadenopathy, supple and no JVD Resp: Effort & Inspection: able to speak in complete sentences Auscultation: clear to auscultation bilaterally Cardio: Jugular venous distension: no JVD Rate: regular rate Rhythm: regular rhythm GI: GI Palp: Yes Soft to palpation and Yes No hepatosplenomegaly present Skin: General skin exam: normal color Wounds: no wounds Neuro: General: oriented to person and CN's II-XI intact bilaterally Cranial nerves: Yes CN's II-XII intact bilaterally and Yes Equal, round and reactive pupils present Cognition (Neuro): abnormal cognition (Dementia) Motor exam (neuro): 5/5 motor strength present throughout Extrem: General: other (L hand infiltrated iv access.) Objective Data Vital Signs Vital Signs: Vital Signs - 24 hr 11/12/20 20:00 11/12/20 21:20 11/13/20 00:00 Temperature 97.0 F L Pulse Rate 62 66 60 Respiratory Rate 16 Blood Pressure 156/71 H Pulse Oximetry 99 11/13/20 04:00 11/13/20 06:00 11/13/20 12:00 Temperature 98.3 F Pulse Rate 59 L 66 58 L Respiratory Rate 16 Blood Pressure 168/84 H Pulse Oximetry 100 11/13/20 13:24 Temperature 97.1 F L Pulse Rate 62 Respiratory Rate 20 Blood Pressure 163/81 H Pulse Oximetry 100 Intake/Output Intake/Output: Intake & Output 11/10/20 11/11/20 11/12/20 11/13/20 23:59 23:59 23:59 23:59 Intake Total 1000 2118 Balance 1000 2118 Meds/Results Radiology Results: ITS Impressions Head CT 11/12/20 11:44 IMPRESSION: 1. No acute intracranial findings. 2. Chronic age related findings. 3. Old infarctions. Chest X-Ray 11/12/20 13:22 IMPRESSION: Minimal infiltrate or atelectasis at lung bases Carotid Doppler Study 11/12/20 17:38 IMPRESSION: 1. Less than 50% stenosis in the right internal carotid artery by sonographic criteria. 2. Less than 50% stenosis in the left internal carotid artery by sonographic criteria. Brain MRI 11/13/20 09:23 IMPRESSION: 1. Old bilateral basal ganglia and occipital, left cerebellar infarctions. 2. Chronic age related findings. Modified Barium Swallow 11/13/20 11:51 IMPRESSION: Modified esophagram findings as above. Please refer to the speech therapy report for specific recommendations. Labs Labs: Laboratory Results - last 24 hr 11/13/20
[2020-11-13] MEDS: ACETAMINOPHEN 500 MG TABLET PO (18:17)
[2020-11-13] MEDS: MEMANTINE HCL XR 28 MG CAP PO (18:17)
[2020-11-13] MEDS: DONEPEZIL HCL 10 MG TABLET PO (18:17)
[2020-11-13] MEDS: busPIRone HCL 5 MG TABLET PO (18:17)
[2020-11-13] MEDS: levETIRAcetam 500 MG TABLET PO (20:18)
[2020-11-13] MEDS: HALOPERIDOL LACTATE 5 MG/ML VIAL IM (22:29)
[2020-11-14] VITALS (7 sets, daily range): BP systolic 141–165; BP diastolic 50–70; PULSE 52–87; RESP 18; TEMP 36.1–36.2; O2SAT 99–100
[2020-11-14] MEDS: busPIRone HCL 5 MG TABLET PO ×2 (10:03→16:49)
[2020-11-14] MEDS: ACETAMINOPHEN 500 MG TABLET PO ×2 (10:03→16:49)
[2020-11-14] MEDS: ASPIRIN 81 MG CHEWABLE TABLET PO (10:03)
[2020-11-14] MEDS: DONEPEZIL HCL 10 MG TABLET PO (10:04)
[2020-11-14] MEDS: levETIRAcetam 500 MG TABLET PO (10:04)
[2020-11-14] MEDS: MEMANTINE HCL XR 28 MG CAP PO (10:08)
--- NOTE | 2020-11-14 11:39 | WPDNEUROPN ---
Progress Note: A&P Assessment and Plan (1) CVA (cerebral vascular accident): Code(s): I63.9 - Cerebral infarction, unspecified Status: Acute (2) Altered mental status: Code(s): R41.82 - Altered mental status, unspecified Status: Acute (3) History of seizures: Code(s): Z87.898 - Personal history of other specified conditions Status: Chronic (4) Dementia: Code(s): F03.90 - Unspecified dementia without behavioral disturbance Status: Chronic Additional Plan is, patient an 81 mg along with the Keppra 500 q.12 hours and BuSpar 5 mg twice a day donepezil 10 mg daily memantine 28 mg daily. There has been no changes in the treatment except will require the physical therapy and occupational therapy Review of Systems Review of Systems: All systems reviewed & are unremarkable except as noted in HPI and below Exam Const: General: comfortable and no acute distress Nutritional Appearance: average body habitus and thin Orientation/consciousness: patient oriented x3 Eyes: General: appearance normal, both eyes and all related structures Neck: Neck: full ROM Resp: Effort & Inspection: normal respiratory effort and able to speak in complete sentences Auscultation: clear to auscultation bilaterally Cardio: Jugular venous distension: no JVD Rate: regular rate Rhythm: regular rhythm GI: Auscultation: normal bowel sounds Neuro: General: patient oriented x3 Cranial nerves: Yes CN's II-XII intact bilaterally Cognition (Neuro): abnormal cognition Speech: normal speech Motor exam (neuro): 5/5 motor strength present throughout ( generally decreased strength) and Normal motor muscle tone present throughout Sensory Exam: Sensory deficit (Neuro) Deep tendon reflexes (DTR's): Right triceps reflex intensity grade: 1+, Left triceps reflex intensity grade: 1+, Rt Biceps (C5, C6): 1+, Left biceps reflex intensity grade: 1+, Right brachioradialis reflex intensity grade: 1+, Left brachioradialis reflex intensity grade: 1+, Right patellar reflex intensity grade: 1+, Left patellar reflex intensity grade: 1+, Right ankle reflex intensity grade: 1+ and Left ankle reflex intensity grade: 1+ Plantar Reflex Responses: equivocal: bilateral Psych: Appearance: grossly normal Objective Data Vital Signs Vital Signs: Vital Signs - 24 hr 11/13/20 12:00 11/13/20 13:24 11/13/20 16:00 Temperature 36.2 C L Pulse Rate 58 L 62 74 Respiratory Rate 20 Blood Pressure 163/81 H Pulse Oximetry 100 11/13/20 20:00 11/13/20 20:08 11/14/20 00:00 Temperature 36.4 C L Pulse Rate 60 60 87 Respiratory Rate 18 Blood Pressure 148/72 H Pulse Oximetry 99 11/14/20 04:00 11/14/20 06:00 11/14/20 08:00 Temperature 36.1 C L Pulse Rate 55 L 55 L 52 L Respiratory Rate 18 Blood Pressure 141/50 H Pulse Oximetry 100 Intake/Output Intake/Output: Intake & Output 11/11/20 11/12/20 11/13/20 11/14/20 23:59 23:59 23:59 23:59 Intake Total 1000 2118 50 Balance 1000 2118 50 Meds/Results Medications: Active Medications Generic Name Dose Route Start Last Admin Trade Name Freq PRN Reason Stop Dose Admin Acetaminophen 500 mg 11/13/20 17:00 11/14/20 10:03 Acetaminophen 500 Mg Tablet PO 500 mg BID DEVI Administration Aspirin 81 mg 11/14/20 08:00 11/14/20 10:03 Aspirin 81 Mg Chewable Tablet PO 81 mg DAILY@0800 DEVI Administration Buspirone HCl 5 mg 11/13/20 18:10 11/14/20 10:03 Buspirone Hcl 5 Mg Tablet PO 5 mg BID DEVI Administration Donepezil HCl 10 mg 11/13/20 18:10 11/14/20 10:04 Donepezil Hcl 10 Mg Tablet PO 10 mg DAILY DEVI Administration Levetiracetam 500 mg 11/13/20 21:00 11/14/20 10:04 Levetiracetam 500 Mg Tablet PO 500 mg Q12HR DEVI Administration Memantine 28 mg 11/13/20 18:10 11/14/20 10:08 Memantine Hcl Xr 28 Mg Cap PO 28 mg DAILY DEVI Administration Radiology Results: ITS Impressions Head CT 11/12/20 11:
--- NOTE | 2020-11-14 14:32 | PM.DS ---
DS: Admitting Diagnosis Admitting Diagnosis Admitting Diagnosis: (1) Altered mental status: . (2) History of seizures: (3) Dementia: DS: Discharge Diagnosis Discharge Diagnosis (1) Altered mental status: Code(s): R41.82 - Altered mental status, unspecified Status: Acute Assessment and Plan: Resolved. (2) Dementia: Code(s): F03.90 - Unspecified dementia without behavioral disturbance Status: Chronic Assessment and Plan: Unchanged (3) History of seizures: Code(s): Z87.898 - Personal history of other specified conditions Status: Chronic Assessment and Plan: Stable (4) CVA (cerebral vascular accident): Code(s): I63.9 - Cerebral infarction, unspecified Status: Acute Assessment and Plan: Chronic DS: Summary Hospital Course Hospital Course: Truman Jensen is a 74 year old male came from [facility]. He has a history of dementia, CVA, and seizure. The patient according to staff was only responsive to pain. At that time he was noted to have pinpoint pupils but is on any opiates. He is usually confused but conversational. The patient was orientated times x [address] of the brain showed no acute intracranial findings. Work up was extensive and low yielding Patient was kept overnight for further observation and evaluation as well as treatment. He returned to his usual and discharged back to the senior living Will follow up in the outpatient setting. Time Spent with Patient Time attestation: Total time spent providing and/or coordinating discharge services: Exam Narrative: Exam Narrative: Lying in bed Const: General: comfortable, no acute distress, alert, awake and Physically active Nutritional Appearance: average body habitus and thin Orientation/consciousness: oriented to person HENMT: Head: normal to inspection and normocephalic Ears: hearing grossly normal bilaterally General nose exam: Normal external nose present Face and sinus: normal facial exam Eyes: General: appearance normal, both eyes and all related structures Pupils: Equal, round and reactive pupils present EOM: EOMs intact bilaterally Neck: Neck: no lymphadenopathy, supple and no JVD Resp: Effort & Inspection: normal respiratory effort and able to speak in complete sentences Auscultation: clear to auscultation bilaterally Cardio: Rate: regular rate Rhythm: regular rhythm GI: GI Palp: Yes Soft to palpation and Yes No hepatosplenomegaly present Skin: Rashes: no rashes Neuro: General: oriented to person and CN's II-XI intact bilaterally Cranial nerves: Yes CN's II-XII intact bilaterally and Yes Equal, round and reactive pupils present Cognition (Neuro): abnormal cognition (Dementia) Motor exam (neuro): 5/5 motor strength present throughout Extrem: General: no pedal edema DS: Data Data Completed and Pending Labs on day of discharge: Labs from last 24 hours 11/14/20 05:38 SARS-CoV-2 RNA (RT-PCR) Pending EXAMINATION: CT brain wo con EXAM DATE: 11/12/2020 11:43 INDICATION: Altered mental status. TECHNIQUE: Spiral CT of the head was performed without contrast. Axial, coronal and sagittal images were reviewed. The dose-length product (DLP) for this examination was 605.33 mGy-cm. The exposure was tailored according to patient size, and iterative reconstruction (ASIR) was used as additional dose reduction technique. There is no prior study for comparison. FINDINGS: There is no acute intraparenchymal hemorrhage. No evidence of intraparenchymal brain mass lesion. No evidence of acute infarction. Please note that initial head CT has limited sensitivity for small or acute infarctions. There is moderate-sized old left occipital lobe infarction, small old right occipital lobe infarction. There is moderate to severe periventricular and subcortical hypodensity, nonspecific but probably related to small vess
[2020-11-14 17:37] LABS: SARS-CoV-2 RNA PCR Negative
[2020-11-15 09:50] LABS: Levetiracetam Keppra 8.6 mcg/mL (12.0-46.0)
== END 2020-11-14 19:19 ==
LOC: ANHED 11:08 → ANH3MED 15:00
PROVIDERS: Emergency Medicine; Family Medicine; Nurse Practitioner; Admitting Provider Family Medicine; Emergency Provider Emergency Medicine; PCP Internal Medicine; Visit Provider Internal Medicine
DX: R41.82 Altered mental status, unspecified (principal); Z20.822 Contact with and (suspected) exposure to COVID-19; F03.90 Unspecified dementia, unspecified severity, without behavioral disturbance, psychotic disturbance, mood disturbance, and anxiety; R56.9 Unspecified convulsions; I11.9 Hypertensive heart disease without heart failure; Z87.891 Personal history of nicotine dependence; Z86.73 Personal history of transient ischemic attack (TIA), and cerebral infarction without residual deficits
CPT/HCPCS: 36415; 36600; 51701; 70450; 70553; 71045; 80053; 80177; 81003; 82728; 82805; 83735; 85025; 92611; 93005; 93306; 93880; 96360; 96361; 96372; 97161; 97165; 99285; A9270; A9577; C9803; G0378; J1630; J7030; J7120; U0003; U0005

== ENCOUNTER 2021-01-02 07:15 | Emergency (ER) | payer MEDICARE, MEDICAID, SELFPAY ==
[2021-01-02] VITALS (20 sets, daily range): BP systolic 136–180; BP diastolic 61–130; PULSE 51–69; RESP 11–19; TEMP 36.7; O2SAT 98–100
--- NOTE | ~2021-01-02 | XR_ITS ---
XR chest 1V 01/02/2021 08:00 Indication: Transient alteration of awareness Procedure: AP view of the chest Comparison: 11/12/2020 Findings: Right basilar airspace disease. Elevated right diaphragm. Cardiomegaly. Left lung clear. No significant pleural effusion or pneumothorax. No acute osseous abnormality. Impression: 1: Right basilar airspace disease may represent atelectasis and/or pneumonia. Reviewed, dictated and finalized at location A. Impression: 1: Right basilar airspace disease may represent atelectasis and/or pneumonia.
--- NOTE | ~2021-01-02 | CT_ITS ---
EXAMINATION: CT brain wo con DATE: 01/02/2021 08:02 INDICATION: Altered mental status. Patient nonverbal. TECHNIQUE: Computed tomography (CT) of the head was performed without intravenous contrast. The dose- length product was 605.33 mGy-cm. Automated exposure control and iterative reconstruction technique w ere employed. COMPARISON: CT dated 11/12/2020 FINDINGS: Large chronic left occipital lobe infarction with encephalomalacia. Right occipital lobe in farction. Generalized atrophy. There are chronic left lacunar infarctions. There are scattered severe periventricular and subcortical white matter changes, most likely related to small vessel ischemic d isease (microangiopathy). No ventriculomegaly or midline shift. Basilar cisterns are patent. Paranasa l sinuses and mastoids are pneumatized. No depressed skull fractures. There is intracranial atheroscl erosis. Midline sagittal images are unremarkable. No acute intracranial hemorrhage, infarction, mass or mass effect. IMPRESSION: 1. No acute intracranial abnormality. No significant change. Reviewed, dictated and finalized at location A.
--- NOTE | 2021-01-02 07:32 | ECG_ITS ---
Measurements Intervals [place] Rate: 55 P: 50 WI: 156 QRS: 9 QRSD: 99 T: 25 QT: 460 QTc: 443 Interpretive Statements SINUS BRADYCARDIA ATRIAL AND VENTRICULAR PREMATURE COMPLEXES BORDERLINE ST ABNORMALITY- LATERAL LEADS BORDERLINE ECG Electronically Signed On 01-02-2021 8:12:15 CDT by Familia Reynolds D.O.
--- NOTE | 2021-01-02 07:34 | ED.GENADULT ---
HPI - General Adult General Chief complaint: Altered Mental Status Stated complaint: responsive to painful stimuli Source: RN notes reviewed History of Present Illness HPI narrative: Patient presents to emergency department from [facility] via EMS for altered mental status. Patient is usually awake and alert x1 and conversive this morning the patient was responsive to pain only. Patient is unable to give any other history per nursing staff and they are going to get the patient undressed as he is fully dressed he did help to lift his hips to undress him. Patient does have a history of seizures however no seizure activity was noted at the group home Related Data Home Medications Medication Instructions Recorded Confirmed Namzaric 1 cap PO DAILY 04/04/20 11/12/20 buspirone 5 mg PO BID 04/04/20 11/12/20 levetiracetam 500 mg PO BID 04/04/20 11/12/20 acetaminophen 500 mg PO BID 11/12/20 11/12/20 aspirin 81 mg PO DAILY 11/12/20 11/12/20 cholecalciferol (vitamin D3) 1,250 mcg PO MONTHLY 11/12/20 11/12/20 Allergies Allergy/AdvReac Type Severity Reaction Status Date / Time No Known Allergies Allergy Verified 01/02/21 07:53 Review of Systems Review of Systems: ROS unobtainable: Yes unobtainable due to medical condition PMF Past Medical History Medical History CVA (cerebral vascular accident) Dementia History of CVA (cerebrovascular accident) History of seizures Surgical History Surgical History Surgical history unknown Family History Family History Unknown Unknown family medical history Social History Social History Social History: lives at [facility]. The patient is listed as a full code. Smoking history not now alcohol history not known. Patient was listed as being on the group home papers. he is retired. Angelica is listed as the spouse in the emergency contact number and cooper tobar is listed as the daughter in his chart. Smoking packs per day: 0.5 Smoking cigarettes per day: 10.0 Years smoked: 50 Smoking pack-years: 25.00 Smoking status: Former smoker Tobacco type: cigarettes Gender identity (if verbalized by the patient): Male Spiritual care concerns: No Exam Narrative: Exam Narrative: APPEARANCE: Laying in bed with eyes closed no response to verbal stimuli will moan and withdraw to painful stimuli EYES: Eyes are tightly closed shut, bilateral pupils are pinpoint and PERRL HEENT: Normocephalic, atraumatic, OMM RESPIRATORY: No respiratory distress Clear to auscultation bilaterally with no rhonchi wheezing or rales. CARDIOVASCULAR: Regular rate and rhythm without murmurs rubs or gallops. ABDOMINAL: Soft, nontender, nondistended, no rebound or guarding MUSCULOSKELETAl: No clubbing, cyanosis or edema. NEURO: No response to verbal stimuli withdraws moans to painful stimuli nonverbal SKIN:: Warm, dry. No rashes lesions or abrasions Course Course Emergency Course: Reviewed old records patient with episode of similar in November with work-up felt to be seizures the patient progressively became more awake 0915: Discussed with Dr. Bonilla for the hospitalist service this time with history of surgery of seizures is requesting that I monitor the patient for another 2 hours in the emergency department to see if the patient becomes progressively more responsive prior to admission Patient is now more awake and alert sitting up in bed he ate an entire meal tray in the emergency department and is back to his baseline per the daughter Called and discussed the Dr. Babcock presentation work-up for suspected seizure currently on Keppra 500 twice daily well increase Keppra to 750 twice daily Patient remains awake and alert in ED will discharge at this time Discussed with patient
[2021-01-02 07:59] LABS: Basophils Absolute Auto 0.1 K/mm3 (0.0-0.1); Basophils Percent Auto 0.9 % (0.2-1.2); Eosinophils Absolute Auto 0.2 K/mm3 (0-0.3); Eosinophils Percent Auto 2.7 % (0-4.4); Hematocrit 40.1 % (42.0-52.0); Hemoglobin 13.2 g/dL (14.0-18.0); Immature Granulocyte Absolute 0.06 K/mm3 (0.00-0.031); Immature Granulocyte Percent A 0.8 % (0-0.5); Lymphocytes Absolute Auto 2.77 K/mm3 (0.9-3.2); Lymphocytes Percent Auto 35.3 % (18.3-44.2); Mean Corpuscular HGB Conc 32.9 g/dl (32-36); Mean Corpuscular Hemoglobin 30.1 pg (26-34); Mean Corpuscular Volume 91.6 fl (80-100); Mean Platelet Volume 10.3 fl (7.4-10.4); Monocytes Absolute Auto 0.8 K/mm3 (0.1-0.6); Monocytes Percent Auto 10.2 % (2.6-8.5); Neutrophils Absolute Auto 3.9 K/mm3 (1.3-6.7); Neutrophils Percent Auto 50.1 % (45.5-73.1); Platelet Count Result 249 k/mm3 (150-375); Red Blood Count 4.38 M/mm3 (4.6-6.20); Red Cell Distribution Width 14.6 % (11.5-14.5); White Blood Count 7.8 K/mm3 (4.5-10.0)
[2021-01-02 08:01] LABS: Add Urine Microscopic? YES; Appearance Urine Clear (Clear); Bilirubin Urine Negative (Negative); Blood Urine 1+ (Negative); Color Urine Straw (Yellow); Glucose Urine UA Negative (Negative); Ketones Urine Negative (Negative); Leukocyte Esterase Ur Negative LEU/UL (Negative); Mucus Urine Rare /lpf; Nitrate Urine Negative (Negative); Protein Urine 1+ mg/dL (Negative); Squamous Epithelial Cell Urine Rare /hpf (Few); Urobilinogen Urine Negative mg/dL (<2.0); WBC Urine 0-3 /hpf
[2021-01-02 08:09] LABS: Prothrombin Time 13.5 Seconds (11.1-14.7)
[2021-01-02 08:10] LABS: Alanine Aminotransferase 17 U/L (4-50); Albumin Level 3.8 g/dL (3.5-5.1); Alkaline Phosphatase 57 U/L (38-126); Anion Gap 6 mmol/L (8-16); Aspartate Amino Transferase 22 U/L (17-59); Bilirubin,Total 0.5 mg/dL (0.2-1.3); Blood Urea Nitrogen 12 mg/dL (9-20); Calcium 9.2 mg/dL (8.4-10.2); Carbon Dioxide 30 mmol/L (22-30); Chloride 106 mmol/L (98-107); Estimated CRCL calculation 68 ml/min; Estimated Glomerular Filt Rate > 60; Glucose 68 mg/dL (75-110); Partial Thromboplastin Time 29.3 SECONDS (22.3-36.8); Potassium 4.2 mmol/L (3.4-5.0); Sodium 142 mmol/L (137-145)
[2021-01-02] MEDS: DEXTROSE 50% 25 GM/50 ML SYRINGE IV PUSH (08:25)
--- NOTE | 2021-01-02 09:13 | PC.NURSE ---
Attempting blood cultures. Pt lying with eyes closed, but answers some questions. A/o x2. Daughter at bedside.
[2021-01-02 09:38] LABS: Lactic Acid Reflex 0.9 mmol/L (0.7-2.1)
--- NOTE | 2021-01-02 10:18 | PC.NURSE ---
Pt has eyes open, c/o feeling hungry. Communicative with staff and daughter.
--- NOTE | 2021-01-02 10:25 | PC.NURSE ---
Pt given turkey sandwich, apple sauce, peaches, and apple juice po. Pt feeding himself without assistance.
[2021-01-02] MEDS: levETIRAcetam Tablet 250 MG, levETIRAcetam Tablet 500 MG 750 MG PO (10:56)
--- NOTE | 2021-01-02 10:56 | PC.NURSE ---
Pt's calls, states is concerned that the patient is not receiving his keppra po as scheduled. Dr. Campa made aware.
--- NOTE | 2021-01-02 11:06 | PC.NURSE ---
Report to Blaire ARORA, to continue care.
[2021-01-02 11:48] LABS: Glucose Point of Care 122 (65-105)
[2021-01-02 11:48] LABS: Glucose Point of Care 70 (65-105)
--- NOTE | 2021-01-02 12:00 | PC.NURSE ---
pt talking to granddaughter via cellphone. a&o x 3. family states pt will need ems to take pt back to [facility]. [facility] called for transport. eta 30 min
--- NOTE | 2021-01-02 12:02 | PC.NURSE ---
[facility] Accepted ETA 30min Trip# [id number]
[2021-01-05 11:20] LABS: Levetiracetam Keppra 3.3 mcg/mL (12.0-46.0)
== END 2021-01-02 12:35 ==
PROVIDERS: Emergency Provider Emergency Medicine; PCP Internal Medicine
DX: R41.82 Altered mental status, unspecified (principal); R56.9 Unspecified convulsions; Z86.73 Personal history of transient ischemic attack (TIA), and cerebral infarction without residual deficits; F03.90 Unspecified dementia, unspecified severity, without behavioral disturbance, psychotic disturbance, mood disturbance, and anxiety; Z87.891 Personal history of nicotine dependence; Z79.82 Long term (current) use of aspirin
CPT/HCPCS: 36415; 51701; 70450; 71045; 80053; 80177; 81001; 82948; 83605; 85025; 85610; 85730; 87040; 93005; 96374; 99284; A9270

== ENCOUNTER 2021-02-01 20:28 | Emergency (ER) | payer MEDICARE, MEDICAID, SELFPAY ==
--- NOTE | ~2021-02-01 | XR_ITS ---
EXAMINATION: XR chest 1V portable 02/01/2021 21:08 INDICATION: Transient alteration of awareness PROCEDURE: AP portable chest COMPARISON: 01/02/2021 FINDINGS: The lungs are clear. The cardiomediastinal silhouette is upper normal limits. There are n o pleural effusions. There is no pneumothorax suspected. IMPRESSION: 1: NO ACUTE CARDIOPULMONARY DISEASE. Reviewed, dictated and finalized at location A.
--- NOTE | ~2021-02-01 | CT_ITS ---
EXAMINATION: CT brain wo con DATE: 02/01/2021 21:03 INDICATION: Altered mental status and confusion TECHNIQUE: Computed tomography (CT) of the head was performed without intravenous contrast. The dose- length product was 605.33 mGy-cm. Automated exposure control and iterative reconstruction technique w ere employed. COMPARISON: CT dated 01/02/2021 and 11/12/2020 FINDINGS: Stable large chronic left occipital lobe infarction. Mild generalized atrophy. There are scattered se guille periventricular and subcortical white matter changes, most likely related to small vessel ischem ic disease (microangiopathy). No acute intracranial hemorrhage, infarction, mass or mass effect. No m idline shift. Basilar cisterns are patent. There is intracranial atherosclerosis. Paranasal sinuses a nd mastoids are pneumatized. IMPRESSION: 1. No acute intracranial abnormality. 2: Large chronic left occipital lobe infarction with encephalomalacia. 3: Chronic age-related findings. Reviewed, dictated and finalized at location A.
[2021-02-01 20:31] VITALS: BP 146/82; PULSE 72; RESP 19; TEMP 36.6; O2SAT 100
[2021-02-01 21:02] LABS: Basophils Absolute Auto 0.1 K/mm3 (0.0-0.1); Eosinophils Absolute Auto 0.1 K/mm3 (0-0.3); Eosinophils Percent Auto 1.5 % (0-4.4); Hematocrit 40.5 % (42.0-52.0); Hemoglobin 13.3 g/dL (14.0-18.0); Immature Granulocyte Absolute 0.04 K/mm3 (0.00-0.031); Immature Granulocyte Percent A 0.5 % (0-0.5); Lymphocytes Absolute Auto 2.41 K/mm3 (0.9-3.2); Lymphocytes Percent Auto 29.1 % (18.3-44.2); Mean Corpuscular HGB Conc 32.8 g/dl (32-36); Mean Corpuscular Hemoglobin 29.9 pg (26-34); Mean Platelet Volume 10.3 fl (7.4-10.4); Monocytes Absolute Auto 0.7 K/mm3 (0.1-0.6); Monocytes Percent Auto 8.1 % (2.6-8.5); Neutrophils Percent Auto 59.8 % (45.5-73.1); Platelet Count Result 245 k/mm3 (150-375); Red Blood Count 4.45 M/mm3 (4.6-6.20); Red Cell Distribution Width 14.5 % (11.5-14.5); White Blood Count 8.3 K/mm3 (4.5-10.0)
[2021-02-01 21:12] LABS: Anion Gap 8 mmol/L (8-16); Blood Urea Nitrogen 16 mg/dL (9-20); Calcium 9.5 mg/dL (8.4-10.2); Carbon Dioxide 26 mmol/L (22-30); Chloride 108 mmol/L (98-107); Creatine Kinase 68 U/L (55-170); Estimated CRCL calculation 65 ml/min; Estimated Glomerular Filt Rate > 60; Glucose 99 mg/dL (75-110); Potassium 4.4 mmol/L (3.4-5.0); Sodium 142 mmol/L (137-145)
[2021-02-01 21:36] VITALS: PULSE 73; RESP 19; O2SAT 99
--- NOTE | 2021-02-01 21:50 | ED.AMS ---
HPI - Altered Mental Status General Chief Complaint: Altered Mental Status Stated Complaint: found on floor/seizure Time Seen by Provider: 02/01/21 20:31 History of Present Illness HPI narrative: Patient is a 75-year-old male who presents ER after being found on the floor of his intermediate altered. Patient has history of seizure disorder. It is thought he may have had a seizure. He is oriented x0 at this time and can only intermittently follow commands. At baseline he is typically oriented follows commands without issue. Patient has no visual evidence of trauma on him. Related Data Home Medications Medication Instructions Recorded Confirmed Namzaric 1 cap PO DAILY 04/04/20 11/12/20 buspirone 5 mg PO BID 04/04/20 11/12/20 levetiracetam 500 mg PO BID 04/04/20 11/12/20 acetaminophen 500 mg PO BID 11/12/20 11/12/20 aspirin 81 mg PO DAILY 11/12/20 11/12/20 cholecalciferol (vitamin D3) 1,250 mcg PO MONTHLY 11/12/20 11/12/20 Allergies Allergy/AdvReac Type Severity Reaction Status Date / Time No Known Allergies Allergy Verified 01/02/21 07:53 Review of Systems Review of Systems: ROS unobtainable: Yes unobtainable due to medical condition PMFSH Past Medical History Medical History CVA (cerebral vascular accident) Dementia History of CVA (cerebrovascular accident) History of seizures Surgical History Surgical History Surgical history unknown Family History Family History Unknown Unknown family medical history Social History Social History Social History: lives at [facility]. The patient is listed as a full code. Smoking history not now alcohol history not known. Patient was listed as being on the intermediate papers. he is retired. Angelica is listed as the spouse in the emergency contact number and cooper tobar is listed as the daughter in his chart. Smoking packs per day: 0.5 Smoking cigarettes per day: 10.0 Years smoked: 50 Smoking pack-years: 25.00 Smoking status: Former smoker Tobacco type: cigarettes Gender identity (if verbalized by the patient): Male Spiritual care concerns: No Exam Narrative: Exam Narrative: GENERAL: Well-appearing, well-nourished, and in no acute distress. HEAD: Normocephalic, atraumatic. EYES: PERRLA and EOMI. ENT: Mucous membranes moist. CHEST: Clear to auscultation. No respiratory distress. HEART: Regular rate and rhythm. Normal peripheral pulses. ABDOMEN: Soft, nontender, nondistended. EXTREMITIES: Normal range of motion. No edema. SKIN: Warm, dry, no rash. NEURO: Likely postictal, responsive to minor stimuli and occasionally follows commands such as moving in arm. Course Reevaluation(s) Reevaluation #1: Patient resting comfortably in bed with daughter at bedside. Currently at neurologic baseline. UA negative, blood and imaging unremarkable. Patient likely breakthrough seizure. Discharge back to intermediate. Date: 02/01/21 Time: 23:36 Vital Signs Vital signs: Vital Signs Temperature 97.8 F 02/01/21 20:31 Pulse Rate 72 02/01/21 20:31 Respiratory Rate 19 02/01/21 20:31 Blood Pressure 146/82 H 02/01/21 20:31 Pulse Oximetry 100 02/01/21 20:31 Temperature 97.8 F 02/01/21 20:31 Pulse Rate 74 02/01/21 23:34 Respiratory Rate 16 02/01/21 23:34 Blood Pressure 134/61 02/01/21 23:34 Pulse Oximetry 99 02/01/21 23:34 MDM - Altered Mental Status Lab Data Result diagrams: 02/01/21 20:53 02/01/21 20:53 Labs: Lab Results 02/01/21 02/01/21 02/01/21 Range/Units 20:53 20:53 23:21 WBC 8.3 (4.5-10.0) K/mm3 RBC 4.45 L (4.6-6.20) M/mm3 Hgb 13.3 L (14.0-18.0) g/dL Hct 40.5 L (42.0-52.0) % MCV 91.0 (80-100) fl MCH 29.9 (26-34) pg
[2021-02-01 22:00] VITALS: PULSE 68; RESP 12; O2SAT 100
[2021-02-01 22:25] VITALS: PULSE 68; RESP 19; O2SAT 98
[2021-02-01 23:32] LABS: Add Urine Microscopic? YES; Appearance Urine Clear (Clear); Bilirubin Urine Negative (Negative); Blood Urine Negative (Negative); Color Urine Yellow (Yellow); Glucose Urine UA Negative (Negative); Ketones Urine Trace mg/dL (Negative); Leukocyte Esterase Ur Negative LEU/UL (Negative); Mucus Urine Rare /lpf; Nitrate Urine Negative (Negative); Protein Urine Negative (Negative); RBC Urine 0-2 /hpf (0-2); Specific Grav Ur 1.013 (1.001-1.035); Urobilinogen Urine Negative mg/dL (<2.0); WBC Urine 0-3 /hpf
[2021-02-01 23:34] VITALS: BP 134/61; PULSE 74; RESP 16; O2SAT 99
[2021-02-02 00:02] VITALS: BP 132/77; PULSE 66; RESP 20
--- NOTE | 2021-02-02 00:45 | PC.NURSE ---
called [facility] to request transport. ETA [id number]
[2021-02-02 00:46] VITALS: BP 133/60; PULSE 74; RESP 16; TEMP 36.7; O2SAT 99
[2021-02-02 01:32] VITALS: BP 134/84; PULSE 73; RESP 11
[2021-02-02 03:01] VITALS: BP 136/63; PULSE 71; RESP 12
--- NOTE | 2021-02-02 05:11 | PC.NURSE ---
called [facility] for ETA update. ETA [id number]
--- NOTE | 2021-02-02 06:06 | PC.NURSE ---
[facility] called to update ETA. ETA is drive time from [place].
--- NOTE | 2021-02-02 06:47 | PC.NURSE ---
[facility] here.
[2021-02-02 06:59] VITALS: BP 130/60; PULSE 60; RESP 16; O2SAT 100
== END 2021-02-02 06:59 | disposition home or self-care (01) ==
PROVIDERS: Emergency Provider Emergency Medicine; PCP Internal Medicine
DX: G40.909 Epilepsy, unspecified, not intractable, without status epilepticus (principal); F03.90 Unspecified dementia, unspecified severity, without behavioral disturbance, psychotic disturbance, mood disturbance, and anxiety; Z86.73 Personal history of transient ischemic attack (TIA), and cerebral infarction without residual deficits; Z79.82 Long term (current) use of aspirin; Z87.891 Personal history of nicotine dependence
CPT/HCPCS: 36415; 51701; 70450; 71045; 80048; 81001; 82550; 85025; 99284

== ENCOUNTER 2021-04-23 07:39 | Emergency (ER) | payer MEDICARE, MEDICAID, SELFPAY ==
[2021-04-23] VITALS (20 sets, daily range): BP systolic 151–177; BP diastolic 65–96; PULSE 60–74; RESP 9–17; TEMP 36.8; O2SAT 66–100
--- NOTE | ~2021-04-23 | XR_ITS ---
EXAMINATION: XR chest 1V portable DATE: 04/23/2021 08:23 INDICATION: Seizure. TECHNIQUE: A single frontal view of the chest was obtained. COMPARISON: Chest single view 02/01/2021 FINDINGS: There is mild atelectasis in the lower lung zones. No pleural effusion or pneumothorax. Car diomegaly is noted. IMPRESSION: 1. Mild atelectasis in the lower lung zones. 2. Cardiomegaly. Reviewed, dictated and finalized at location A.
--- NOTE | 2021-04-23 08:15 | ECG_ITS ---
Measurements Intervals [place] Rate: 67 P: 49 DE: 134 QRS: 17 QRSD: 86 T: 138 QT: 405 QTc: 430 Interpretive Statements SINUS RHYTHM WITH SINUS ARRHYTHMIA EARLY PRECORDIAL R/S TRANSITION BORDERLINE ST-T WAVE ABNORMALITY- ANTEROLAT/HIGH LAT LEADS BASELINE ARTIFACT- I, II, AVR BORDERLINE ECG Electronically Signed On 04-23-2021 8:18:07 CDT by Familia Reynolds D.O.
[2021-04-23 09:00] LABS: Basophils Absolute Auto 0.1 K/mm3 (0.0-0.1); Basophils Percent Auto 0.8 % (0.2-1.2); Eosinophils Absolute Auto 0.2 K/mm3 (0-0.3); Eosinophils Percent Auto 2.9 % (0-4.4); Hematocrit 36.1 % (42.0-52.0); Hemoglobin 11.8 g/dL (14.0-18.0); Immature Granulocyte Absolute 0.08 K/mm3 (0.00-0.031); Immature Granulocyte Percent A 1.1 % (0-0.5); Lymphocytes Percent Auto 19.8 % (18.3-44.2); Mean Corpuscular HGB Conc 32.7 g/dl (32-36); Mean Corpuscular Hemoglobin 29.9 pg (26-34); Mean Corpuscular Volume 91.4 fl (80-100); Mean Platelet Volume 9.4 fl (7.4-10.4); Monocytes Absolute Auto 0.8 K/mm3 (0.1-0.6); Monocytes Percent Auto 10.6 % (2.6-8.5); Neutrophils Absolute Auto 4.9 K/mm3 (1.3-6.7); Neutrophils Percent Auto 64.8 % (45.5-73.1); Platelet Count Result 213 k/mm3 (150-375); Red Blood Count 3.95 M/mm3 (4.6-6.20); Red Cell Distribution Width 14.2 % (11.5-14.5); White Blood Count 7.6 K/mm3 (4.5-10.0)
[2021-04-23 09:14] LABS: Anion Gap 5 mmol/L (8-16); Blood Urea Nitrogen 14 mg/dL (9-20); Calcium 8.9 mg/dL (8.4-10.2); Carbon Dioxide 27 mmol/L (22-30); Chloride 107 mmol/L (98-107); Estimated CRCL calculation 62 ml/min; Estimated Glomerular Filt Rate > 60; Glucose 83 mg/dL (75-110); Potassium 3.7 mmol/L (3.4-5.0); Sodium 139 mmol/L (137-145)
[2021-04-23] MEDS: carBAMazepine 200 MG TABLET PO (09:40)
[2021-04-23] MEDS: levETIRAcetam 1000MG/NACL100ML 1,000 MG/100 ML BAG 400 MG IVPB (09:40)
--- NOTE | 2021-04-23 11:08 | ED.SEIZURE ---
HPI - Seizure General Chief Complaint: Seizure Stated Complaint: AMS Time Seen by Provider: 04/23/21 07:56 History of Present Illness HPI Narrative: Patient is a 75-year-old male who presents ER with seizure activity. Was at his snf when he started seizing. Described as whole body shaking. Apparently lasted approximately 15 minutes. Patient oriented x1 for EMS. Currently oriented x2. Has history of seizures and dementia. Takes Keppra and Tegretol daily. Related Data Home Medications Medication Instructions Recorded Confirmed Namzaric 1 cap PO DAILY 04/04/20 11/12/20 buspirone 5 mg PO BID 04/04/20 11/12/20 levetiracetam 500 mg PO BID 04/04/20 11/12/20 acetaminophen 500 mg PO BID 11/12/20 11/12/20 aspirin 81 mg PO DAILY 11/12/20 11/12/20 cholecalciferol (vitamin D3) 1,250 mcg PO MONTHLY 11/12/20 11/12/20 Allergies Allergy/AdvReac Type Severity Reaction Status Date / Time No Known Allergies Allergy Verified 01/02/21 07:53 Review of Systems Review of Systems: ROS unobtainable: Yes unobtainable due to mental status PMFSH Past Medical History Medical History CVA (cerebral vascular accident) Dementia History of CVA (cerebrovascular accident) History of seizures Surgical History Surgical History Surgical history unknown Family History Family History Unknown Unknown family medical history Social History Social History Social History: lives at [facility]. The patient is listed as a full code. Smoking history not now alcohol history not known. Patient was listed as being on the snf papers. he is retired. Angelica is listed as the spouse in the emergency contact number and cooper tobar is listed as the daughter in his chart. Smoking packs per day: 0.5 Smoking cigarettes per day: 10.0 Years smoked: 50 Smoking pack-years: 25.00 Smoking status: Former smoker Tobacco type: cigarettes Gender identity (if verbalized by the patient): Male Spiritual care concerns: No Exam Narrative: Exam Narrative: GENERAL: Chronically ill-appearing, well-nourished, and in no acute distress. HEAD: Normocephalic, atraumatic. EYES: PERRL and EOMI. ENT: Mucous membranes moist. CHEST: Clear to auscultation. No respiratory distress. HEART: Regular rate and rhythm. Normal peripheral pulses. ABDOMEN: Soft, nontender, nondistended. EXTREMITIES: Normal range of motion. No edema. SKIN: Warm, dry, no rash. NEURO: Cranial nerves II through XII intact. No active tremor or seizure. Alert and oriented x2. Course Course Emergency Course: Patient is being given oral Tegretol and IV Keppra. No additional seizure activity. Alva to be breakthrough seizure. Discharge back to snf. Vital Signs Vital signs: Vital Signs Temperature 98.3 F 04/23/21 07:41 Pulse Rate 68 04/23/21 07:41 Respiratory Rate 12 04/23/21 07:41 Blood Pressure 177/68 H 04/23/21 07:41 Pulse Oximetry 99 04/23/21 07:41 Temperature 98.3 F 04/23/21 07:41 Pulse Rate 66 04/23/21 10:03 Respiratory Rate 13 04/23/21 10:03 Blood Pressure 154/75 H 04/23/21 10:03 Pulse Oximetry 100 04/23/21 10:03 MDM - Seizure Lab Data Result diagrams: 04/23/21 08:55 04/23/21 08:55 Labs: Lab Results 04/23/21 04/23/21 Range/Units 08:55 08:55 WBC 7.6 (4.5-10.0) K/mm3 RBC 3.95 L (4.6-6.20) M/mm3 Hgb 11.8 L (14.0-18.0) g/dL Hct 36.1 L (42.0-52.0) % MCV 91.4 (80-100) fl MCH 29.9 (26-34) pg MCHC 32.7 (32-36) g/dl RDW 14.2 (11.5-14.5) % Plt Count 213 (150-375) k/mm3 MPV 9.4 (7.4-10.4) fl Immature Gran % (Auto) 1.1 H (0-0.5) % Neut % (Auto) 64.8 (45.5-73.1) % Lymph % (Auto) 19.8 (18.3-44.2) % [place]
== END 2021-04-23 12:15 ==
PROVIDERS: Emergency Provider Emergency Medicine
DX: G40.909 Epilepsy, unspecified, not intractable, without status epilepticus (principal); F03.90 Unspecified dementia, unspecified severity, without behavioral disturbance, psychotic disturbance, mood disturbance, and anxiety; Z86.73 Personal history of transient ischemic attack (TIA), and cerebral infarction without residual deficits; Z87.891 Personal history of nicotine dependence; I51.7 Cardiomegaly; R94.31 Abnormal electrocardiogram [ECG] [EKG]
CPT/HCPCS: 36415; 71045; 80048; 85025; 93005; 96374; 99284; A9270; J1953

== ENCOUNTER 2021-06-03 14:09 | Observation (INO) | payer MEDICARE, MEDICAID, SELFPAY ==
[2021-06-03] VITALS (32 sets, daily range): BP systolic 134–171; BP diastolic 49–94; PULSE 46–88; RESP 9–23; TEMP 36.6; O2SAT 96–100
--- NOTE | ~2021-06-03 | CT_ITS ---
EXAMINATION: CT brain wo con EXAM DATE: 06/03/2021 14:58 INDICATION: Altered mental status. Seizure. TECHNIQUE: Spiral CT of the head was performed without contrast. Axial, coronal and sagittal images were reviewed. The dose-length product (DLP) for this examination was 605.33 mGy-cm. The exposure w as tailored according to patient size, and iterative reconstruction (ASIR) was used as additional dos e reduction technique. Comparison is made to prior examination from 01/02/2021. FINDINGS: Large old left mesial temporal occipital lobe infarction. There is no acute intraparenchyma l hemorrhage. No evidence of intraparenchymal brain mass lesion. No evidence of acute infarction. Please note that initial head CT has limited sensitivity for small or acute infarctions. Punctate old bilateral basal ganglia lacunar infarctions. There is severe periventricular and subcortical hypoden sity, nonspecific but probably related to small vessel ischemic disease. There is prominence of the sulci and ventricles related to cerebral atrophy. There is intracranial carotid arteriosclerosis. There are no extra-axial collections. There is no mass effect or midline shift. The orbits are unr emarkable. Soft tissue is unremarkable. The visualized sinuses and mastoid air cells are well aerat ed. IMPRESSION: 1. No acute intracranial findings. 2. Chronic age related findings. 3. Large old left mesial temporal occipital lobe infarction. 4. Punctate old bilateral basal ganglia lacunar infarctions. Reviewed, dictated and finalized at location A.
--- NOTE | ~2021-06-03 | MR_ITS ---
EXAMINATION: MR brain/brain stem wo/w con EXAM DATE: 06/04/2021 13:05 INDICATION: Altered mental status. TECHNIQUE: Magnetic resonance imaging (MRI) of the brain/brain stem obtained without contrast. Sagit tr T1, axial diffusion, gradient echo (T2*), T1, T2, FLAIR sequences obtained. Patient was then inj ected with 15 cc intravenous Multihance contrast. Axial and coronal postcontrast T1 weighted sequence s obtained. There is no prior study for comparison. FINDINGS: There is large old left-sided mesial temporal occipital lobe infarction. Small old right oc cipital lobe infarction. Punctate bilateral old basal ganglia lacunar infarctions. Small old left cer ebellar infarction. There are no areas of restricted diffusion to suggest acute infarction. There is no acute hemorrhage seen on the T2*, a hemosiderin sensitive sequence. No intraparenchymal brain ma ss lesion. There is moderate to severe periventricular and subcortical T2/FLAIR signal hyperintensity , nonspecific but probably related to small vessel ischemic disease (microangiopathy). There is mil d prominence of the sulci and ventricles related to cerebral atrophy. There are no extra-axial romulo ections. Flow voids are seen in the cerebral arteries on the T2-weighted sequences consistent with t heir expected patency. The orbits are unremarkable. Soft tissue is unremarkable. IMPRESSION: 1. Old infarctions. 2. Chronic age related findings. Reviewed, dictated and finalized at location A.
--- NOTE | 2021-06-03 14:19 | ECG_ITS ---
Measurements Intervals [place] Rate: 54 P: 55 [place]: 145 QRS: -6 QRSD: 88 T: 1 QT: 404 QTc: 385 Interpretive Statements SINUS BRADYCARDIA WITH MARKED SINUS ARRHYTHMIA ATRIAL PREMATURE COMPLEX NONSPECIFIC T-WAVE ABNORMALITY- INF/LAT LEADS BASELINE ARTIFACT- I, III, AVL BORDERLINE ECG Electronically Signed On 06-03-2021 17:18:49 CDT by Familia Reynolds D.O.
--- NOTE | 2021-06-03 14:28 | ED.SEIZURE ---
HPI - Seizure General Chief Complaint: Seizure Stated Complaint: Seizure Time Seen by Provider: 06/03/21 14:13 Source: patient History of Present Illness HPI Narrative: Patient presents with altered mental status. Patient is in a nursing facility has a known seizure disorder last time patient was seen normal was around 1250 there is family thinks he had a seizure and is still recovering however it was unwitnessed so they wanted to come to the ER for evaluation. Related Data Home Medications Medication Instructions Recorded Confirmed Namzaric 1 cap PO DAILY 04/04/20 11/12/20 buspirone 5 mg PO BID 04/04/20 11/12/20 levetiracetam 500 mg PO BID 04/04/20 11/12/20 acetaminophen 500 mg PO BID 11/12/20 11/12/20 aspirin 81 mg PO DAILY 11/12/20 11/12/20 cholecalciferol (vitamin D3) 1,250 mcg PO MONTHLY 11/12/20 11/12/20 Allergies Allergy/AdvReac Type Severity Reaction Status Date / Time No Known Allergies Allergy Verified 06/03/21 14:34 Review of Systems Review of Systems: ROS unobtainable: Yes unobtainable due to mental status PMFSH Past Medical History Medical History CVA (cerebral vascular accident) Dementia History of CVA (cerebrovascular accident) History of seizures Surgical History Surgical History Surgical history unknown Family History Family History Unknown Unknown family medical history Social History Social History Social History: lives at [facility]. The patient is listed as a full code. Smoking history not now alcohol history not known. Patient was listed as being on the prison papers. he is retired. Angelica is listed as the spouse in the emergency contact number and cooper tobar is listed as the daughter in his chart. Smoking packs per day: 0.5 Smoking cigarettes per day: 10.0 Years smoked: 50 Smoking pack-years: 25.00 Smoking status: Former smoker Tobacco type: cigarettes Gender identity (if verbalized by the patient): Male Spiritual care concerns: No Exam Narrative: GENERAL: Appears chronically ill and in no acute distress. HEAD: Normocephalic, atraumatic. EYES: Pupils are small and minimally reactive but symmetric and EOMI. ENT: Nares clear, no rhinorrhea or epistaxis. Mucous membranes moist. NECK: Supple. No masses. CHEST: Clear to auscultation. No respiratory distress. No wheezes rales or rhonchi HEART: Regular rate and rhythm. No murmur heard. Normal peripheral pulses. ABDOMEN: Soft, nontender, nondistended, normal active bowel sounds. SKIN: Warm, dry, no rash. NEURO: Localizes to noxious stimuli not responding to verbal commands opens eyes spontaneously Course Reevaluation(s) Reevaluation #1: attempting to contact nursing facility. Pat is easily arousable and response to questions pt is alert and oriented to self. Date: 06/03/21 Time: 19:04 Reevaluation #2: Confirmed baseline mental status with Nursing facility. patient is verbal and responds to questions but does not answer questions correctly pt usually oriented to self Date: 06/03/21 Time: 20:15 Reevaluation #3: Family came to bedside reported patient continues to be altered. Family reported that the patient is usually up walking around and conversing with them. Given family's report of continued altered mental status Case was discussed with hospitalist team and neurology patient will be admitted for observation EEG and MRI to further evaluate altered mental status Date: 06/03/21 Time: 20:32 Vital Signs Vital signs: Vital Signs Temperature 36.6 C 06/03/21 14:15 Pulse Rate 53 L 06/03/21 14:15 Respiratory Rate 14 06/03/21 14:15 Blood Pressure 134/61 06/03/21 14:15 Pulse Oximetry 98 06/03/21 14:15 Temperature 36.6 C 06/03/21 14:15 Pulse
[2021-06-03] MEDS: NALOXONE HCL 0.4 MG/ML VIAL IV PUSH (14:30)
[2021-06-03] MEDS: SODIUM CHLORIDE 0.9% IV 1,000 ML 999 ML IV CONT (14:33)
[2021-06-03 15:17] LABS: Amphetamine Screen Urine Negative (Negative); Barbiturate Screen Urine Negative (Negative); Benzodiazepines Screen Urine Negative (Negative); Cannabinoid Screen Urine Negative (Negative); Cocaine Screen Urine Negative (Negative); Methadone Screen Urine Negative (Negative); Opiate Screen Urine Negative (Negative); Phencyclidine Screen Urine Negative (Negative)
[2021-06-03 15:41] LABS: Basophils Absolute Auto 0.1 K/mm3 (0.0-0.1); Basophils Percent Auto 1.1 % (0.2-1.2); Eosinophils Absolute Auto 0.2 K/mm3 (0-0.3); Eosinophils Percent Auto 3.7 % (0-4.4); Hematocrit 35.1 % (42.0-52.0); Hemoglobin 11.1 g/dL (14.0-18.0); Immature Granulocyte Absolute 0.02 K/mm3 (0.00-0.031); Immature Granulocyte Percent A 0.4 % (0-0.5); Lymphocytes Absolute Auto 1.47 K/mm3 (0.9-3.2); Lymphocytes Percent Auto 26.9 % (18.3-44.2); Mean Corpuscular HGB Conc 31.6 g/dl (32-36); Mean Corpuscular Hemoglobin 30.1 pg (26-34); Mean Corpuscular Volume 95.1 fl (80-100); Mean Platelet Volume 9.8 fl (7.4-10.4); Monocytes Absolute Auto 0.6 K/mm3 (0.1-0.6); Monocytes Percent Auto 10.4 % (2.6-8.5); Neutrophils Absolute Auto 3.1 K/mm3 (1.3-6.7); Neutrophils Percent Auto 57.5 % (45.5-73.1); Platelet Count Result 189 k/mm3 (150-375); Red Blood Count 3.69 M/mm3 (4.6-6.20); Red Cell Distribution Width 14.2 % (11.5-14.5); White Blood Count 5.5 K/mm3 (4.5-10.0)
[2021-06-03 15:47] LABS: Acetaminophen < 10 ug/mL (10-30); Ethanol < 10 mg/dL (<10); Salicylate < 1.0 mg/dL (2-20)
[2021-06-03 15:48] LABS: Alanine Aminotransferase 11 U/L (4-50); Albumin Level 3.1 g/dL (3.5-5.1); Alkaline Phosphatase 70 U/L (38-126); Anion Gap 6 mmol/L (8-16); Aspartate Amino Transferase 38 U/L (17-59); Bilirubin,Total 0.2 mg/dL (0.2-1.3); Blood Urea Nitrogen 15 mg/dL (9-20); Calcium 8.4 mg/dL (8.4-10.2); Carbon Dioxide 25 mmol/L (22-30); Chloride 106 mmol/L (98-107); Estimated CRCL calculation 81 ml/min; Estimated Glomerular Filt Rate > 60; Glucose 116 mg/dL (65-110); Potassium 3.8 mmol/L (3.4-5.0); Sodium 137 mmol/L (137-145)
[2021-06-03 15:53] LABS: Add Urine Microscopic? YES; Appearance Urine Clear (Clear); Bilirubin Urine 1+ (Negative); Blood Urine 1+ (Negative); Color Urine Yellow (Yellow); Glucose Urine UA Negative (Negative); Ketones Urine Negative (Negative); Leukocyte Esterase Ur Negative LEU/UL (Negative); Nitrate Urine Negative (Negative); Protein Urine Negative (Negative); Specific Grav Ur 1.025 (1.001-1.035); pH Urine 5.5 (5.0-9.0)
--- NOTE | 2021-06-03 15:53 | PC.NURSE ---
[facility] Dr. Kenyon, neurologist Dr. Lockett [phone] Per family patient had MRI at [facility] in April
[2021-06-03 17:09] LABS: Mucus Urine Few /lpf; Squamous Epithelial Cell Urine Few /hpf (Few); WBC Urine 0-3 /hpf
--- NOTE | 2021-06-03 18:02 | PC.NURSE ---
Attempting to call [facility] at this time x3 without answer.
[2021-06-03] MEDS: SODIUM CHLORIDE 0.9% IV 1,000 ML 125 ML IV CONT (23:34)
[2021-06-04] VITALS (11 sets, daily range): BP systolic 102–156; BP diastolic 42–70; PULSE 50–100; RESP 16–18; TEMP 35.8–37.1; O2SAT 95–99; BMI 24.8
--- NOTE | 2021-06-04 00:22 | PM.IMHP ---
H&P: HPI History of Present Illness Date/Time: 06/04/21 00:22 Chief Complaint: Altered mental status Narrative: 75-year-old male with past medical history of multiple CVAs, dementia, seizure disorder, and Parkinson's disease who presented to the ER via EMS from [facility] due to altered mental status. The patient evidently was at his baseline just before 1:00 p.m. when he was wrists returned to his room after lunch. When staff checked on him at 1:30 a.m. he was found to be not responding or talking. The patient's family reports that the patient is usually up ambulatory and walking. He state that he had not returned to his baseline delay wanted him brought to the ER for evaluation. The long-term staff reports that the patient sleeps much of the time but will have periods of being awake. The patient reportedly has not missed any of his seizure medications. In the ER CT scan of the brain was performed and demonstrated no acute process. Patient was afebrile and had no other acute process identified that could explain his altered mental status. Family was adamant patient had not returned to baseline and patient was subsequently admitted as observation with neurology consult. Neurologist recommended MRI and EEG in a.m.. Patient will be continued on his home anti epileptics dosing until EEG results are known, unless a recurrent seizures witnessed. Review of Systems Review of Systems: ROS unobtainable: Yes unobtainable due to mental status PMFSH Past Medical History Medical History CVA (cerebral vascular accident) Dementia History of CVA (cerebrovascular accident) History of seizures Surgical History Surgical History Surgical history unknown Family History Family History Unknown Unknown family medical history Social History Social History Social History: He resides at [facility]. The patient is listed as a full code. Patient was listed as being on the long-term papers. Angelica is listed as the spouse in the emergency contact number. Cassandra Messer is listed as the daughter in his chart. Smoking packs per day: 0.5 Smoking cigarettes per day: 10.0 Years smoked: 50 Smoking pack-years: 25.00 Smoking status: Former smoker Alcohol intake: never Substance use: never Occupation/Education: retired Gender identity (if verbalized by the patient): Male Spiritual care concerns: No Meds Home Medications and Allergies Home Medications Medication Instructions Recorded Confirmed Type Namzaric 1 cap PO DAILY 04/04/20 06/04/21 History aspirin 81 mg PO DAILY 11/12/20 06/03/21 History cholecalciferol (vitamin D3) 1,250 mcg PO MONTHLY 11/12/20 06/04/21 History amlodipine 5 mg PO DAILY 06/03/21 06/04/21 History carbamazepine 400 mg PO BID 06/03/21 06/04/21 History carbidopa-levodopa 1 tablet PO TID 06/03/21 06/04/21 History levetiracetam [Keppra] 1,500 mg PO BID 06/04/21 06/04/21 History Allergies Allergy/AdvReac Type Severity Reaction Status Date / Time No Known Allergies Allergy Verified 06/03/21 23:58 Vital Signs Vital Signs - 24 hr 06/03/21 14:15 06/03/21 14:18 06/03/21 15:52 Temperature 97.8 F Pulse Rate 53 L 54 L 62 Respiratory Rate 14 13 Blood Pressure 134/61 141/62 H Pulse Oximetry 98 97 06/03/21 17:29 06/03/21 18:56 06/03/21 19:00 Temperature Pulse Rate 88 49 L 50 L Respiratory Rate 23 H 11 L 12 Blood Pressure 159/94 H 161/62 H Pulse Oximetry 96 98 06/03/21 19:02 06/03/21 19:19 06/03/21 19:30 Temperature Pulse Rate 49 L 51 L 49 L Respiratory Rate 14 17 Blood Pressure 154/86 H Pulse Oximetry 98 100 06/03/21 19:32 06/03/21 19:49 06/03/21 20:14 Temperature Pulse Rate 50 L 46
[2021-06-04] MEDS: SODIUM CHLORIDE 0.9% IV 1,000 ML 125 ML IV CONT (09:42)
[2021-06-04] MEDS: ASPIRIN 81 MG CHEWABLE TABLET PO (09:43)
[2021-06-04] MEDS: CARBIDOPA/LEVODOPA 25/100 MG TABLET 1 TABLET PO ×3 (09:45→17:24)
[2021-06-04] MEDS: carBAMazepine 200 MG TABLET 400 MG PO ×2 (09:46→17:24)
[2021-06-04] MEDS: amLODIPine BESYLATE 5 MG TABLET PO (09:46)
[2021-06-04] MEDS: levETIRAcetam 500 MG TABLET 1500 MG PO ×2 (09:46→20:09)
--- NOTE | 2021-06-04 10:16 | WPDNEUROLOGY ---
Neurology EEG Report General Information Date of Study: 06/04/21 TEST eeg DIAGNOSIS Change in the mental status CONDITION OF RECORDING unresponsive EEG NUMBER [id number] CLINICAL HISTORY brought in for being unresponsive EEG DESCRIPTION whole record consists of low-voltage 15 to 21 hertz per 2nd beta activity admixed with multiple artifacts. Hyperventilation not done. Photic stimulation not done. His study was done at the bedside with patient being unresponsive. Non paroxysmal. Nonfocal. Nonlateralizing. IMPRESSION Abnormal record due to the absence of the normal background rhythm. There is no evidence of focal slow activity to consider the possibility of focal brain insult one side or other side and also there is no evidence of paroxysmal discharge clinical correlation recommended finding could be suggestive of underlying organic or metabolic encephalopathy or postictal state. for S
--- NOTE | 2021-06-04 16:08 | PM.DS ---
DS: Admitting Diagnosis Admitting Diagnosis Confusion DS: Discharge Diagnosis Discharge Diagnosis (1) Seizure disorder: Code(s): G40.909 - Epilepsy, unspecified, not intractable, without status epilepticus Status: Acute Assessment and Plan: Patient has a history of seizures. He is established with neurologist Dr. Miller. He had a suspected seizure at his nursing facility, though this was unwitnessed and had subsequent confusion. Head CT with no acute findings, brain MRI also with no acute findings with evidence of old infarcts. EEG showed findings consistent with postictal state. He was seen in consultation by Neurology. I discussed the case with Dr. Babcock who recommended continuing his current treatment regimen of Keppra 1500 mg BID and carbamazepine 400 mg BID. I spoke with his neurologist office via phone to provide updates. He has an extended EEG upcoming in 2 weeks. Continue follow up with his neurologist. (2) Dementia: Qualifiers: Dementia behavioral disturbance: without behavioral disturbance Dementia type: vascular dementia Qualified Code(s): F01.50 - Vascular dementia without behavioral disturbance Code(s): F03.90 - Unspecified dementia without behavioral disturbance Status: Chronic Assessment and Plan: He is typically A&Ox2 per intermediate staff. He was oriented to himself during my exam. He did not know we were [facility] but he could tell me where he lives and this could have simply been due to unfamiliar surroundings. Overall, seemed to be consistent with baseline. Continue Namzaric. (3) Sinus bradycardia: Code(s): R00.1 - Bradycardia, unspecified Status: Acute Assessment and Plan: EKG on presentation reviewed which showed sinus bradycardia. He had some episodes of bradycardia ranging from 47-50s. He remained asymptomatic with this. On review of prior hospital stays, it appears to be chronic. He is not on any medications known to cause bradycardia. TSH wnl. Discussed with intermediate staff who report MA physician aware of this. Continue outpatient monitoring of facility and consider cardiology referral if persistent. HR in the 70s at time of discharge. DS: Summary Hospital Course Hospital Course: Date of admission: 06/03/2021 Date of discharge: 06/04/2021 Truman Jensen is an 85-year-old male with a history of seizure disorder, CVA, and dementia who presented to the emergency department on 06/03/2021 from intermediate due to concerns for seizure with subsequent confusion. On presentation to the emergency department, his vital signs were stable, he was afebrile, H&H slightly decreased with additional CBC and BMP unremarkable, head CT with no acute intracranial findings evidence of large old left him for Karishma brittle lobe infarction and punctate old lacunar infarctions. He was admitted to the hospitalist service for further evaluation and management was seen in consultation by Neurology. Please see above for further details. His confusion was felt to be related to postictal state. He remained somewhat confused given his dementia, but overall felt to be at his baseline following discussions with patient , daughter, and intermediate staff. Given his returne to baseline, he was determined to no longer require inpatient care was felt to be stable for discharge. I spoke with his via phone and with his daughter who was visiting to discussed worrisome signs and symptoms for which to return and educated on his medications. He has follow-up scheduled with his neurologist and will be seen by the intermediate physician in follow-up. He was discharged in hemodynamically stable condition on 06/04/2021. Status at Discharge Functional status at discharge: wheelchair bound Overall status at discharge: patient is progressing back to baseline Time Spent with Patient Time attestation: Total time spent providing and/or coordinating discharg
--- NOTE | 2021-06-04 16:48 | WPDNEURCNPN ---
Assessment and Plan Additional Plan continue the treatment as such with a fixed neurological deficit from the previous stroke though he has a likely candidate for seizure but there was no specific documented history of seizures treatment will be continued as such Consult date: 06/04/21 Time Seen: 10:00 HPI: Truman Jensen is a 75 year old male admitted to the hospital with the complaints of change in the mental status in addition to the history of multiple stroke in the past with underlying dementia, seizure disorder, and Parkinson's disease he was transferred to the hospital emergency room on the [facility] for the complaints of change in the mental status without having had any obvious documented seizures and was not able to return to his baseline reportedly he was sleeping most of the time and had not missed any seizure medication initial CT scan in the emergency room was negative subsequently MRI of the brain has been done after the admission which documented the left-sided mesial temporal occipital lobe infarction in addition to small old right occipital lobe infarction as well and also bilateral basal ganglia lacunar infarct also left cerebellar infarct there was no evidence of the bleed there was no evidence of the hydrocephalus though the prominence of sulci and ventricles were noted because of the central atrophy and initial CT scan of the head has also documented the large old left mesial temporal occipital lobe infarction along with deep old bilateral basal gangliar lacunar infarcts routine blood studies revealed no leukocytosis hemoglobin was 11.1 with platelet count 189 and basic metabolic panel fairly normal with blood sugar only 116 and also UA was negative Review of Systems Review of Systems: All systems reviewed & are unremarkable except as noted in HPI and below PMFSH Past Medical History Medical History CVA (cerebral vascular accident) Dementia History of CVA (cerebrovascular accident) History of seizures Surgical History Surgical History Surgical history unknown Family History Family History Unknown Unknown family medical history Social History Social History Social History: He resides at [facility]. The patient is listed as a full code. Patient was [facility] as being on [facility] papers. Angelica is listed as the spouse in the emergency contact number. Cassandra Messer is listed as the daughter in his chart. Smoking packs per day: 0.5 Smoking cigarettes per day: 10.0 Years smoked: 50 Smoking pack-years: 25.00 Smoking status: Former smoker Alcohol intake: never Substance use: never Occupation/Education: retired Gender identity (if verbalized by the patient): Male Spiritual care concerns: No Meds Home Medications and Allergies Home Medications Medication Instructions Recorded Confirmed Type Namzaric 1 cap PO DAILY 04/04/20 06/04/21 History aspirin 81 mg PO DAILY 11/12/20 06/03/21 History cholecalciferol (vitamin D3) 1,250 mcg PO MONTHLY 11/12/20 06/04/21 History amlodipine 5 mg PO DAILY 06/03/21 06/04/21 History carbamazepine 400 mg PO BID 06/03/21 06/04/21 History carbidopa-levodopa 1 tablet PO TID 06/03/21 06/04/21 History levetiracetam [Keppra] 1,500 mg PO BID 06/04/21 06/04/21 History Allergies Allergy/AdvReac Type Severity Reaction Status Date / Time No Known Allergies Allergy Verified 06/03/21 23:58 Vital Signs Vital Signs - 24 hr 06/03/21 17:29 06/03/21 18:56 06/03/21 19:00 Temperature Pulse Rate 88 49 L 50 L Respiratory Rate 23 H 11 L 12 Blood Pressure 159/94 H 161/62 H Pulse Oximetry 96 98 06/03/21 19:02 06/03/21 19:19 06/03/21 19:30 Temperature Pulse Rate 49 L 51 L 49 L Respiratory Rate 1
[2021-06-04 17:55] LABS: Thyroid Stimulating Hormone Reflex 0.692 uIU/mL (0.465-4.68)
[2021-06-05 06:00] VITALS: BP 157/82; PULSE 63; RESP 16; TEMP 37; O2SAT 100
[2021-06-06 07:08] LABS: Prolactin 4.1 ng/mL (***)
== END 2021-06-05 06:50 ==
LOC: ANHED 21:26 → ANH3MED 22:22
PROVIDERS: Physician Assistant; Admitting Provider Internal Medicine; Emergency Provider Emergency Medicine; Visit Provider Internal Medicine
DX: G40.909 Epilepsy, unspecified, not intractable, without status epilepticus (principal); R41.82 Altered mental status, unspecified; F01.50 Vascular dementia, unspecified severity, without behavioral disturbance, psychotic disturbance, mood disturbance, and anxiety; R00.1 Bradycardia, unspecified; Z86.73 Personal history of transient ischemic attack (TIA), and cerebral infarction without residual deficits; G20 Parkinson's disease; Z87.891 Personal history of nicotine dependence
CPT/HCPCS: 36415; 51701; 70450; 70553; 80053; 80307; 81001; 84146; 84443; 85025; 93005; 95816; 96361; 96374; 99285; A9270; A9577; G0378; J2310; J7030

== ENCOUNTER 2021-08-20 07:18 | Emergency (ER) | payer MEDICARE, MEDICAID, SELFPAY ==
--- NOTE | ~2021-08-20 | XR_ITS ---
EXAMINATION: XR chest 2V DATE: 08/20/2021 08:06 INDICATION: Shortness of breath. TECHNIQUE: Frontal and lateral views of the chest were obtained. COMPARISON: Chest single view 04/23/2021 FINDINGS: There are mild airspace opacities in the lower lung zones. No pleural effusion or pneumotho rax. The heart size is normal. There is a compression fracture at approximately T12. IMPRESSION: 1. Mild airspace opacities in the lower lung zones, consistent with atelectasis or less likely pneumo liza. 2. Age-indeterminate compression fracture at approximately T12. Reviewed, dictated and finalized at location A. [facility] CASH CLERK IMPRESSION: 1. Mild airspace opacities in the lower lung zones, consistent with atelectasis or less likely pneumonia. 2. Age-indeterminate compression fracture at approximately T12.
[2021-08-20 07:26] VITALS: BP 120/76; PULSE 86; RESP 18; TEMP 36.9; O2SAT 94
--- NOTE | 2021-08-20 07:49 | ECG_ITS ---
Measurements Intervals [place] Rate: 79 P: 66 [place]: 137 QRS: -21 QRSD: 92 T: 72 QT: 408 QTc: 468 Interpretive Statements SINUS RHYTHM WITH SINUS ARRHYTHMIA INCOMPLETE RIGHT BUNDLE BRANCH BLOCK BORDERLINE ST-T WAVE ABNORMALITY- HIGH LATERAL LEADS BORDERLINE ECG Electronically Signed On 08-20-2021 8:31:10 SOLE STITCHER HAND by Familia Reynolds D.O.
[2021-08-20 08:51] LABS: Basophils Percent Auto 0.4 % (0.2-1.2); Eosinophils Absolute Auto 0.1 K/mm3 (0-0.3); Eosinophils Percent Auto 1.9 % (0-4.4); Hematocrit 34.7 % (42.0-52.0); Hemoglobin 11.4 g/dL (14.0-18.0); Immature Granulocyte Absolute 0.04 K/mm3 (0.00-0.031); Immature Granulocyte Percent A 0.6 % (0-0.5); Lymphocytes Absolute Auto 1.24 K/mm3 (0.9-3.2); Lymphocytes Percent Auto 18.5 % (18.3-44.2); Mean Corpuscular HGB Conc 32.9 g/dl (32-36); Mean Corpuscular Hemoglobin 29.7 pg (26-34); Mean Corpuscular Volume 90.4 fl (80-100); Mean Platelet Volume 10.3 fl (7.4-10.4); Monocytes Absolute Auto 0.9 K/mm3 (0.1-0.6); Monocytes Percent Auto 13.3 % (2.6-8.5); Neutrophils Absolute Auto 4.4 K/mm3 (1.3-6.7); Neutrophils Percent Auto 65.3 % (45.5-73.1); Platelet Count Result 237 k/mm3 (150-375); Red Blood Count 3.84 M/mm3 (4.6-6.20); Red Cell Distribution Width 13.9 % (11.5-14.5); White Blood Count 6.7 K/mm3 (4.5-10.0)
[2021-08-20 09:06] LABS: Alanine Aminotransferase 54 U/L (4-50); Albumin Level 3.9 g/dL (3.5-5.1); Alkaline Phosphatase 83 U/L (38-126); Anion Gap 8 mmol/L (8-16); Aspartate Amino Transferase 52 U/L (17-59); Bilirubin,Total 0.3 mg/dL (0.2-1.3); Blood Urea Nitrogen 28 mg/dL (9-20); Calcium 8.9 mg/dL (8.4-10.2); Carbon Dioxide 25 mmol/L (22-30); Chloride 113 mmol/L (98-107); Estimated CRCL calculation 73 ml/min; Estimated Glomerular Filt Rate > 60; Glucose 107 mg/dL (65-110); Potassium 3.8 mmol/L (3.4-5.0); Sodium 146 mmol/L (137-145)
--- NOTE | 2021-08-20 09:37 | ED.SOB ---
HPI - SOB/Dyspnea General Chief Complaint: Shortness of Breath/Dyspnea Stated Complaint: SOB Time Seen by Provider: 08/20/21 07:45 Source: patient, family, EMS, RN notes reviewed and old records reviewed History of Present Illness HPI Narrative: Patient presents with hypoxia. Patient is being treated for pneumonia as an outpatient this morning at the nursing facility noted a low oxygen levels called EMS arrival his oxygen was were 95% on room air he was referred to the ER for further evaluation. Patient at this time he denies any shortness of breath, cough, fevers, focal areas of pain such as chest pain or abdominal pain. Related Data Home Medications Medication Instructions Recorded Confirmed Namzaric 1 cap PO DAILY 04/04/20 06/04/21 aspirin 81 mg PO DAILY 11/12/20 06/03/21 cholecalciferol (vitamin D3) 1,250 mcg PO MONTHLY 11/12/20 06/04/21 amlodipine 5 mg PO DAILY 06/03/21 06/04/21 carbamazepine 400 mg PO BID 06/03/21 06/04/21 carbidopa-levodopa 1 tablet PO TID 06/03/21 06/04/21 levetiracetam [Keppra] 1,500 mg PO BID 06/04/21 06/04/21 ferrous sulfate 325 mg PO DAILY 08/20/21 08/20/21 Allergies Allergy/AdvReac Type Severity Reaction Status Date / Time No Known Allergies Allergy Verified 08/20/21 07:35 Review of Systems Review of Systems: CONSTITUTIONAL: Denies fever, chills, or sweats. EYES: Denies visual changes, redness, or discharge. ENT: Denies rhinorrhea, congestion, sore throat, or otalgia. CARDIOVASCULAR: Denies chest pain, palpitations, or edema. RESPIRATORY: Denies cough or dyspnea. GASTROINTESTINAL: Denies abdominal pain, nausea, vomiting, or diarrhea. GENITOURINARY: Denies dysuria or hematuria. SKIN: Denies rash or itching. MUSCULOSKELETAL: Denies back pain, joint pain, or myalgia. NEUROLOGIC: Denies headache, numbness, dizziness, or weakness. PSYCHIATRIC: Denies anxiety or depression. All systems reviewed & are unremarkable except as noted in HPI and below PMFSH Past Medical History Medical History CVA (cerebral vascular accident) Dementia History of CVA (cerebrovascular accident) History of seizures Surgical History Surgical History Surgical history unknown Family History Family History Unknown Unknown family medical history Social History Social History Social History: He resides at [facility]. The patient is listed as a full code. Patient was listed as being on the intermediate papers. Angelica is listed as the spouse in the emergency contact number. Cassandra Messer is listed as the daughter in his chart. Smoking packs per day: 0.5 Smoking cigarettes per day: 10.0 Years smoked: 50 Smoking pack-years: 25.00 Smoking status: Former smoker Alcohol intake: never Substance use: never Gender identity (if verbalized by the patient): Male Spiritual care concerns: No Exam Narrative: GENERAL: Well-appearing, well-nourished, and in no acute distress. HEAD: Normocephalic, atraumatic. EYES: PERRLA and EOMI. ENT: Nares clear, no rhinorrhea or epistaxis. Mucous membranes moist. NECK: Supple. No masses. No JVD CHEST: Clear to auscultation. No respiratory distress. No wheezes rales or rhonchi HEART: Regular rate and rhythm. No murmur heard. Normal peripheral pulses. ABDOMEN: Soft, nontender, nondistended, normal active bowel sounds. EXTREMITIES: Normal range of motion. No edema. SKIN: Warm, dry, no rash. NEURO: No focal deficits. Alert and oriented to self. PSYCH: Normal mood and affect. Course Reevaluation(s) Reevaluation #1: Patient is resting comfortably patient has had a normal oxygen level on room air results and plan reviewed with family. Patient and family are comfortable with outpatient plan. Date: 08/20/21 Loki
[2021-08-20 09:48] VITALS: BP 112/69; PULSE 78; RESP 18; O2SAT 95
== END 2021-08-20 14:16 ==
PROVIDERS: Emergency Provider Emergency Medicine
DX: J18.9 Pneumonia, unspecified organism (principal); Z87.891 Personal history of nicotine dependence; Z86.73 Personal history of transient ischemic attack (TIA), and cerebral infarction without residual deficits; F03.90 Unspecified dementia, unspecified severity, without behavioral disturbance, psychotic disturbance, mood disturbance, and anxiety; G40.909 Epilepsy, unspecified, not intractable, without status epilepticus
CPT/HCPCS: 36415; 71046; 80053; 85025; 93005; 99284

== ENCOUNTER 2021-11-22 11:01 | Emergency (ER) | payer MEDICARE, MEDICAID, SELFPAY ==
[2021-11-22] VITALS (18 sets, daily range): BP systolic 124–154; BP diastolic 57–70; PULSE 46–70; RESP 13–26; TEMP 36.5; O2SAT 89–100
--- NOTE | 2021-11-22 11:17 | ED.RECABL ---
HPI - Recheck/Abnormal Lab/Rx General Chief Complaint: Recheck/Abnormal Lab/Rx Stated Complaint: ABN Labs Source: patient and EMS Mode of arrival: EMS Limitations: dementia History of Present Illness HPI narrative: This is a 75-year-old male that presents to the emergency department for abnormal labs. Reportedly patient's INR was elevated. Unsure when this lab was drawn. He was given 5 mg of vitamin K and sent to the emergency department for further evaluation. He has no complaints currently. Denies epistaxis, hematochezia, melena, or hematuria. Related Data Home Medications Medication Instructions Recorded Confirmed Namzaric 1 cap PO DAILY 04/04/20 06/04/21 aspirin 81 mg PO DAILY 11/12/20 06/03/21 cholecalciferol (vitamin D3) 1,250 mcg PO MONTHLY 11/12/20 06/04/21 amlodipine 5 mg PO DAILY 06/03/21 06/04/21 carbamazepine 400 mg PO BID 06/03/21 06/04/21 carbidopa-levodopa 1 tablet PO TID 06/03/21 06/04/21 levetiracetam [Keppra] 1,500 mg PO BID 06/04/21 06/04/21 ferrous sulfate 325 mg PO DAILY 08/20/21 08/20/21 Allergies Allergy/AdvReac Type Severity Reaction Status Date / Time No Known Allergies Allergy Verified 11/22/21 11:22 Review of Systems Review of Systems: CONSTITUTIONAL: Denies fever ENT: Denies epistaxis GASTROINTESTINAL: Denies hematochezia or melena GENITOURINARY: Denies hematuria. All systems reviewed & are unremarkable except as noted in HPI and below PMFSH Past Medical History Medical History CVA (cerebral vascular accident) Dementia History of CVA (cerebrovascular accident) History of seizures Surgical History Surgical History Surgical history unknown Family History Family History Unknown Unknown family medical history Social History Social History Social History: He resides at [facility]. The patient is listed as a full code. Patient was listed as being on the [facility] papers. Angelica is listed as the spouse in the emergency contact number. Cassandra Messer is listed as the daughter in his chart. Smoking packs per day: 0.5 Smoking cigarettes per day: 10.0 Years smoked: 50 Smoking pack-years: 25.00 Smoking status: Former smoker Alcohol intake: never Substance use: never Gender identity (if verbalized by the patient): Male Spiritual care concerns: No Exam Narrative: GENERAL: Well-appearing, well-nourished, and in no acute distress. HEAD: Normocephalic, atraumatic. EYES: EOMI. ENT: Nares clear, no rhinorrhea or epistaxis. Mucous membranes moist. Oropharynx without tonsillar hypertrophy exudate or other lesions. Bilateral TMs pearly rouse non-bulging NECK: Supple. No adenopathy or masses. CHEST: No respiratory distress. HEART: Regular rate EXTREMITIES: Normal range of motion. No edema. SKIN: Warm, dry, no rash. NEURO: No focal deficits. Alert and oriented x3. PSYCH: Normal mood and affect Course Vital Signs Vital signs: Vital Signs Temperature 97.7 F 11/22/21 11:07 Pulse Rate 70 11/22/21 11:07 Respiratory Rate 16 11/22/21 11:07 Blood Pressure 139/63 11/22/21 11:07 Pulse Oximetry 100 11/22/21 11:07 Temperature 97.7 F 11/22/21 11:07 Pulse Rate 70 11/22/21 11:07 Respiratory Rate 16 11/22/21 11:07 Blood Pressure 139/63 11/22/21 11:07 Pulse Oximetry 100 11/22/21 11:07 MDM - Recheck/Abnormal Lab/Rx MDM Narrative Medical decision making narrative: Patient presents to the ER for abnormal labs. Had elevated INR to 6.7. Was given 5mg Vitamin K and sent to the ER for further evaluation. No signs or symptoms of bleeding. His INR today is 4.4. I attempted to reach patient's PCP, have not heard back from them yet. Patient will be discharged back to nursing fac
[2021-11-22 11:36] LABS: Basophils Absolute Auto 0.1 K/mm3 (0.0-0.1); Eosinophils Absolute Auto 0.2 K/mm3 (0-0.3); Eosinophils Percent Auto 2.2 % (0-4.4); Hemoglobin 11.4 g/dL (14.0-18.0); Immature Granulocyte Absolute 0.03 K/mm3 (0.00-0.031); Immature Granulocyte Percent A 0.4 % (0-0.5); Lymphocytes Absolute Auto 1.82 K/mm3 (0.9-3.2); Lymphocytes Percent Auto 26.6 % (18.3-44.2); Mean Corpuscular HGB Conc 31.7 g/dl (32-36); Mean Corpuscular Hemoglobin 29.7 pg (26-34); Mean Corpuscular Volume 93.8 fl (80-100); Mean Platelet Volume 9.5 fl (7.4-10.4); Monocytes Absolute Auto 0.7 K/mm3 (0.1-0.6); Monocytes Percent Auto 10.5 % (2.6-8.5); Neutrophils Absolute Auto 4.1 K/mm3 (1.3-6.7); Neutrophils Percent Auto 59.3 % (45.5-73.1); Platelet Count Result 241 k/mm3 (150-375); Red Blood Count 3.84 M/mm3 (4.6-6.20); Red Cell Distribution Width 15.2 % (11.5-14.5); White Blood Count 6.8 K/mm3 (4.5-10.0)
[2021-11-22 11:46] LABS: INR 4.4; Prothrombin Time 40.9 Seconds (11.1-14.7)
[2021-11-22 11:47] LABS: Partial Thromboplastin Time 50.2 SECONDS (22.3-36.8)
== END 2021-11-22 12:35 ==
PROVIDERS: Physician Assistant; Emergency Provider Emergency Medicine
DX: R79.1 Abnormal coagulation profile (principal); Z86.73 Personal history of transient ischemic attack (TIA), and cerebral infarction without residual deficits; F03.90 Unspecified dementia, unspecified severity, without behavioral disturbance, psychotic disturbance, mood disturbance, and anxiety; Z79.82 Long term (current) use of aspirin; Z87.891 Personal history of nicotine dependence
CPT/HCPCS: 36415; 85025; 85610; 85730; 99283

== ENCOUNTER 2021-12-15 17:34 | Observation (INO) | payer MEDICARE, MEDICAID, SELFPAY ==
[2021-12-15] VITALS (30 sets, daily range): BP systolic 138–183; BP diastolic 60–90; PULSE 52–72; RESP 11–22; TEMP 36.4–36.5; O2SAT 99–100; BMI 19.8
--- NOTE | ~2021-12-15 | CT_ITS ---
EXAMINATION: CT brain wo con DATE: 12/15/2021 18:09 INDICATION: Altered mental status TECHNIQUE: Computed tomography (CT) of the head was performed without intravenous contrast. Sagittal and coronal reconstructions were performed. The mA was adjusted according to patient size. Iterative reconstruction technique was employed. The dose-length product was 605.33 mGy-cm. COMPARISON: head CT dated 06/03/2021 and brain MR dated 06/04/2021 FINDINGS: Again seen are regions of encephalomalacia involving the right occipital lobe and more extensively in volving the left occipital and posterior mesial left temporal lobe consistent with chronic infarcts. Additional small old lacunar infarcts in the bilateral basal ganglia. No acute intracranial hemorrhag e, acute infarction or abnormal extra axial fluid collection. There is moderate scattered white matte r hypoattenuation consistent with chronic small vessel ischemic disease. Ventricles are normal and s ymmetric. No mass/mass effect. Mucosal thickening the right maxillary sinus. The orbitsoutside and ma stoid air cells are normal. Intracranial calcified cerebral atherosclerosis is noted. IMPRESSION: 1. No acute intracranial process. 2. Stable appearance of old infarcts in the bilateral occipital, left temporal lobes and bilateral ba bharath ganglia. 3. Moderate scattered white matter hypoattenuation consistent with chronic small vessel ischemic dise ase. Reviewed, dictated and finalized at location A. COOPER IMPRESSION: 1. No acute intracranial process. 2. Stable appearance of old infarcts in the bilateral occipital, left temporal lobes and bilateral basal ganglia. 3. Moderate scattered white matter hypoattenuation consistent with chronic smal l vessel ischemic disease.
--- NOTE | ~2021-12-15 | XR_ITS ---
EXAMINATION: XR chest 1V DATE: 12/15/2021 18:15 INDICATION: Found unresponsive. Altered mental status. TECHNIQUE: frontal view of the chest was obtained. COMPARISON: Chest radiograph dated 08/20/2021 FINDINGS: Bone loss in the right hemithorax with elevation the right hemidiaphragm. Mild rightward shift of the heart and mediastinum which could be due to either the volume loss the right hemithorax or slight ri ghtward rotation of the patient. Couple ovoid opacities projecting over the right side of the heart l ikely representing combination of pulmonary arteries and veins. No pulmonary edema, pleural effusion or pneumothorax. Heart size is normal. IMPRESSION: 1. Volume loss in the right hemithorax with elevation right hemidiaphragm and some rightward shift of the heart and mediastinum. 2. Couple ovoid opacities at the right lower lung zone checking over the right side of the heart like ly representing the pulmonary arteries and veins at the right hilum atypically profiled due to to the slight rightward rotation of the patient. Recommend follow-up PA and lateral chest radiograph when m ental status improves. Reviewed, dictated and finalized at location A. [employer] IMPRESSION: 1. Volume loss in the right hemithorax with elevation right hemidiaphragm and s ome rightward shift of the heart and mediastinum. 2. Couple ovoid opacities at the right lower lung zone checking over the right side of the heart likely representing the pulmonary arteries and veins at the r ight hilum atypically profiled due to to the slight rightward rotation of the p atient. Recommend follow-up PA and lateral chest radiograph when mental status improves.
--- NOTE | 2021-12-15 17:35 | ECG_ITS ---
Measurements Intervals [place] Rate: 65 P: 49 [place]: 135 QRS: 57 QRSD: 101 T: 82 QT: 460 QTc: 479 Interpretive Statements SINUS RHYTHM WITH OCCASIONAL VENTRICULAR PREMATURE COMPLEXES WITH OCCASIONAL SUPRAVENTRICULAR PREMATURE COMPLEXES POSSIBLE RIGHT VENTRICULAR CONDUCTION DELAY [RSR (QR) IN V1/V2] NONSPECIFIC T-WAVE ABNORMALITY PROLONGED QT INTERVAL ABNORMAL ECG COMPARED TO ECG 08/20/2021 08:19:52 T-WAVE ABNORMALITY NOW PRESENT PROLONGED QT INTERVAL NOW PRESENT Electronically Signed On 12-16-2021 14:44:57 NEONATAL NURSE by Albino Mcallister M.D.
--- NOTE | 2021-12-15 17:42 | ED.AMS ---
HPI - Altered Mental Status General Chief Complaint: Altered Mental Status Stated Complaint: altered loc Source: RN notes reviewed History of Present Illness HPI narrative: Patient presents emergency department from [facility] via EMS for altered mental status. Per staff the patient was last seen approximately a little over an hour ago patient is normally awake and alert and confused patient was found unresponsive the patient this time is only withdrawing to painful stimuli does not open eyes to verbal stimuli. Per the staff the patient has had a history of this before and also has a history of seizures has been taking his medication no recent illness Related Data Home Medications Medication Instructions Recorded Confirmed Namzaric 1 cap PO DAILY 04/04/20 06/04/21 aspirin 81 mg PO DAILY 11/12/20 06/03/21 cholecalciferol (vitamin D3) 1,250 mcg PO MONTHLY 11/12/20 06/04/21 amlodipine 5 mg PO DAILY 06/03/21 06/04/21 carbamazepine 400 mg PO BID 06/03/21 06/04/21 carbidopa-levodopa 1 tablet PO TID 06/03/21 06/04/21 levetiracetam [Keppra] 1,500 mg PO BID 06/04/21 06/04/21 ferrous sulfate 325 mg PO DAILY 08/20/21 08/20/21 Allergies Allergy/AdvReac Type Severity Reaction Status Date / Time No Known Allergies Allergy Verified 11/22/21 11:22 Review of Systems Review of Systems: ROS unobtainable: Yes unobtainable due to mental status PMFSH Past Medical History Medical History CVA (cerebral vascular accident) Dementia History of CVA (cerebrovascular accident) History of seizures Surgical History Surgical History Surgical history unknown Family History Family History Unknown Unknown family medical history Social History Social History Social History: He resides at [facility]. The patient is listed as a full code. Patient was listed as being on the intermediate papers. Angelica is listed as the spouse in the emergency contact number. Cassandra Messer is listed as the daughter in his chart. Smoking packs per day: 0.5 Smoking cigarettes per day: 10.0 Years smoked: 50 Smoking pack-years: 25.00 Smoking status: Former smoker Alcohol intake: never Substance use: never Gender identity (if verbalized by the patient): Male Spiritual care concerns: No Exam Narrative: APPEARANCE: Laying in bed with eyes closed does not open eyes to verbal stimuli withdraws to painful stimuli EYES: Eyes held tightly closed HEENT: Normocephalic, atraumatic, OMM RESPIRATORY: No respiratory distress Clear to auscultation bilaterally with no rhonchi wheezing or rales. CARDIOVASCULAR: Regular rate and rhythm without murmurs rubs or gallops. ABDOMINAL: Soft, nontender, nondistended, no rebound or guarding MUSCULOSKELETAl: Moves all extremities. No clubbing, cyanosis or edema. NEURO: Does not respond to verbal stimuli withdraws to painful stimuli and moves all extremities SKIN:: Warm, dry. No rashes lesions or abrasions Course Course Emergency Course: Reviewed old records the patient has similar episode before in past with admission history of seizures Patient has now more awake he is able to open his eyes tell me his name discussed with family who was present states patient does have a history of seizure recently had some changes to seizure medicines per records on Keppra 1500 mg that she has not had this evening we will give Keppra Discussed with Dr. Garzon agrees with admission Discussed with patient and family results of workup and diagnosis. Discussed need for admission. Patient and family understand and agree to current treatment plan Vital Signs Vital signs: Vital Signs Temperature 97.7 F 12/15/21 17:36 Pulse Rate 58 L 12/15/21 17:36 Respiratory Rate 16
[2021-12-15 18:09] LABS: Basophils Absolute Auto 0.1 K/mm3 (0.0-0.1); Basophils Percent Auto 0.9 % (0.2-1.2); Eosinophils Absolute Auto 0.2 K/mm3 (0-0.3); Eosinophils Percent Auto 2.9 % (0-4.4); Hematocrit 37.6 % (42.0-52.0); Hemoglobin 11.7 g/dL (14.0-18.0); Immature Granulocyte Absolute 0.02 K/mm3 (0.00-0.031); Immature Granulocyte Percent A 0.3 % (0-0.5); Lymphocytes Percent Auto 36.4 % (18.3-44.2); Mean Corpuscular HGB Conc 31.1 g/dl (32-36); Mean Corpuscular Hemoglobin 29.3 pg (26-34); Mean Corpuscular Volume 94.2 fl (80-100); Mean Platelet Volume 10.6 fl (7.4-10.4); Monocytes Absolute Auto 0.6 K/mm3 (0.1-0.6); Monocytes Percent Auto 10.6 % (2.6-8.5); Neutrophils Absolute Auto 2.8 K/mm3 (1.3-6.7); Neutrophils Percent Auto 48.9 % (45.5-73.1); Platelet Count Result 270 k/mm3 (150-375); Red Blood Count 3.99 M/mm3 (4.6-6.20); Red Cell Distribution Width 14.6 % (11.5-14.5); White Blood Count 5.8 K/mm3 (4.5-10.0)
[2021-12-15 18:25] LABS: Lactic Acid Reflex 1.2 mmol/L (0.7-2.1)
[2021-12-15 18:27] LABS: Alanine Aminotransferase 14 U/L (4-50); Albumin Level 4.1 g/dL (3.5-5.1); Alkaline Phosphatase 57 U/L (38-126); Anion Gap 5 mmol/L (8-16); Aspartate Amino Transferase 33 U/L (17-59); Bilirubin,Total 0.5 mg/dL (0.2-1.3); Blood Urea Nitrogen 20 mg/dL (9-20); Calcium 8.8 mg/dL (8.4-10.2); Carbon Dioxide 27 mmol/L (22-30); Chloride 107 mmol/L (98-107); Estimated CRCL calculation 88 ml/min; Estimated Glomerular Filt Rate > 60; Glucose 73 mg/dL (65-110); Potassium 4.4 mmol/L (3.4-5.0); Sodium 139 mmol/L (137-145)
[2021-12-15 19:00] LABS: INR 3.2; Prothrombin Time 31.9 Seconds (11.1-14.7)
[2021-12-15 19:01] LABS: Partial Thromboplastin Time 38.3 SECONDS (22.3-36.8)
[2021-12-15 19:10] LABS: Add Urine Microscopic? YES; Appearance Urine Clear (Clear); Bilirubin Urine Negative (Negative); Blood Urine Negative (Negative); Color Urine Yellow (Yellow); Glucose Urine UA Negative (Negative); Ketones Urine Trace mg/dL (Negative); Leukocyte Esterase Ur Negative LEU/UL (Negative); Nitrate Urine Negative (Negative); Protein Urine Negative (Negative); RBC Urine 0-2 /hpf (0-2); Specific Grav Ur 1.027 (1.001-1.035); Urobilinogen Urine Negative mg/dL (<2.0); WBC Urine 0-3 /hpf
--- NOTE | 2021-12-15 19:42 | PC.NURSE ---
pt eyes open blinking at this time. when family asks are you hungry? pt responds with mhmm. EDP andrey notified.
--- NOTE | 2021-12-15 20:34 | PM.IMHP ---
H&P: HPI History of Present Illness Date/Time: 12/15/21 20:34 Chief Complaint: Altered mental status. Narrative: This is a 76-year-old male with past medical history significant for Parkinson's disease, Parkinson's dementia, seizures, [facility] at [facility]. Sister who also happens to work at the [facility] is here at bedside with patient and tells me that he was okay in the morning however towards later in the day he became less responsive and she also noticed that he was having twitching of his eyes and this is when he usually has seizure . Patient has been in his usual state of health prior to these. At the time of my visit Mr. Jensen was becoming more responsive he was able to follow verbal commands and he was able to swallow his tablets. Preliminary workup was essentially nonrevealing. Review of Systems Review of Systems: ROS unobtainable: Yes unobtainable due to medical condition (Dementia patient usually oriented 1-2) and unobtainable due to mental status (Patient might be post ictal) PMFSH Past Medical History Medical History CVA (cerebral vascular accident) Dementia History of CVA (cerebrovascular accident) History of seizures Surgical History Surgical History Surgical history unknown Family History Family History Unknown Unknown family medical history Social History Social History Social History: He resides at [facility]. The patient is listed as a full code. Patient was [facility] as being on the [facility]. Angelica is listed as the spouse in the emergency contact number. Cassandra Messer is listed as the daughter in his chart. Smoking packs per day: 0.5 Smoking cigarettes per day: 10.0 Years smoked: 50 Smoking pack-years: 25.00 Smoking status: Never smoker Second hand tobacco smoke exposure: No Alcohol intake: never Substance use: never Substance use type: does not use Gender identity (if verbalized by the patient): Male Spiritual care concerns: No Meds Home Medications and Allergies Home Medications Medication Instructions Recorded Confirmed Type Namzaric 1 cap PO DAILY 04/04/20 12/15/21 History aspirin 81 mg PO DAILY 11/12/20 12/15/21 History cholecalciferol (vitamin D3) 1,250 mcg PO MONTHLY 11/12/20 12/15/21 History amlodipine 5 mg PO DAILY 06/03/21 12/15/21 History carbidopa-levodopa 1 tablet PO TID 06/03/21 12/15/21 History levetiracetam [Keppra] 1,500 mg PO BID 06/04/21 12/15/21 History acetaminophen 1,000 mg PO BID 12/15/21 12/15/21 History atorvastatin 40 mg PO DAILY 12/15/21 12/15/21 History lamotrigine 25 mg PO BID 12/15/21 12/15/21 History lorazepam 0.5 mg PO DAILY 12/15/21 12/15/21 History melatonin 3 mg BYMOUTH DAILY PRN 12/15/21 12/15/21 History warfarin 0.5 mg PO DAILY 12/15/21 12/15/21 History warfarin 6 mg PO DAILY 12/15/21 12/15/21 History Allergies Allergy/AdvReac Type Severity Reaction Status Date / Time No Known Allergies Allergy Verified 11/22/21 11:22 Vital Signs Vital Signs - 24 hr 12/15/21 17:36 12/15/21 17:41 12/15/21 17:42 Temperature 97.7 F Pulse Rate 58 L 53 L 65 Respiratory Rate 16 13 16 Blood Pressure 183/78 H 183/78 H Pulse Oximetry 100 100 100 12/15/21 17:45 12/15/21 17:47 12/15/21 18:14 Temperature Pulse Rate 69 72 56 L Respiratory Rate 17 12 16 Blood Pressure 171/70 H Pulse Oximetry 100 100 12/15/21 18:15 12/15/21 18:30 12/15/21 18:45 Temperature Pulse Rate 57 L 63 59 L Respiratory Rate 16 14 11 L Blood Pressure Pulse Oximetry 100 12/15/21 18:50 12/15/21 19:00 12/15/21 19:02 Temperature Pulse Rate 54 L 52 L 56 L Respiratory Rate 19 19 20 Blood Pressure 161/77 H 157/75 H Pulse Oximetry 100 100 100 E
--- NOTE | 2021-12-15 21:39 | PC.NURSE ---
unable to chart 1500 mg keppra given PO at 2100, error stating EDP in the chart when the EPD confirmed he was not in the chart. charge nurse and EDP made aware.
[2021-12-15] MEDS: levETIRAcetam 500 MG TABLET 1500 MG PO (21:54)
--- NOTE | 2021-12-15 22:05 | ADMGEN ---
This patient, Truman Jensen, was admitted to 3 [facility] Surg Room 333-01. Patient/family oriented to hospital policies and general routines including ID bracelet, bed and alarms, visiting hours, pain management, procedures, bathroom and other care routines, personal items, smoking policy, room service/diet, and visiting hours. Information on how to activate the Rapid Response Team has been discussed. Patient/Family are encouraged to report perceived risks to care and to ask questions if they do not understand what they are told or what they should do.
[2021-12-16 05:46] VITALS: BP 164/48; PULSE 64; RESP 18; TEMP 36.8; O2SAT 100
[2021-12-16 10:00] VITALS: O2SAT 96
[2021-12-16 10:18] LABS: Basophils Absolute Auto 0.1 K/mm3 (0.0-0.1); Basophils Percent Auto 0.9 % (0.2-1.2); Eosinophils Absolute Auto 0.2 K/mm3 (0-0.3); Eosinophils Percent Auto 2.4 % (0-4.4); Hematocrit 34.8 % (42.0-52.0); Hemoglobin 11.4 g/dL (14.0-18.0); Immature Granulocyte Absolute 0.02 K/mm3 (0.00-0.031); Immature Granulocyte Percent A 0.3 % (0-0.5); Lymphocytes Absolute Auto 1.91 K/mm3 (0.9-3.2); Lymphocytes Percent Auto 28.6 % (18.3-44.2); Mean Corpuscular HGB Conc 32.8 g/dl (32-36); Mean Corpuscular Hemoglobin 29.6 pg (26-34); Mean Corpuscular Volume 90.4 fl (80-100); Mean Platelet Volume 10.8 fl (7.4-10.4); Monocytes Absolute Auto 0.7 K/mm3 (0.1-0.6); Monocytes Percent Auto 10.9 % (2.6-8.5); Neutrophils Absolute Auto 3.8 K/mm3 (1.3-6.7); Neutrophils Percent Auto 56.9 % (45.5-73.1); Platelet Count Result 265 k/mm3 (150-375); Red Blood Count 3.85 M/mm3 (4.6-6.20); Red Cell Distribution Width 14.4 % (11.5-14.5); White Blood Count 6.7 K/mm3 (4.5-10.0)
[2021-12-16 10:36] LABS: Anion Gap 4 mmol/L (8-16); Blood Urea Nitrogen 16 mg/dL (9-20); Calcium 8.4 mg/dL (8.4-10.2); Carbon Dioxide 29 mmol/L (22-30); Chloride 106 mmol/L (98-107); Estimated CRCL calculation 61 ml/min; Estimated Glomerular Filt Rate > 60; Glucose 71 mg/dL (65-110); Potassium 4.1 mmol/L (3.4-5.0); Sodium 139 mmol/L (137-145)
--- NOTE | 2021-12-16 11:52 | PM.IMPN ---
Progress Note: A&P Assessment and Plan (1) Dementia: Qualifiers: Dementia behavioral disturbance: without behavioral disturbance Dementia type: vascular dementia Qualified Code(s): F01.50 - Vascular dementia without behavioral disturbance Code(s): F03.90 - Unspecified dementia without behavioral disturbance Status: Chronic (2) Seizure disorder: Code(s): G40.909 - Epilepsy, unspecified, not intractable, without status epilepticus Status: Acute (3) Parkinson's disease: Code(s): G20 - Parkinson's disease Status: Acute (4) Parkinson's disease dementia: Code(s): G20 - Parkinson's disease; F02.80 - Dementia in other diseases classified elsewhere without behavioral disturbance Status: Acute (5) Chronic arterial ischemic stroke, multifocal, multiple vascular territories: Code(s): I69.30 - Unspecified sequelae of cerebral infarction Status: Acute (6) Breakthrough seizure: Code(s): G40.919 - Epilepsy, unspecified, intractable, without status epilepticus Status: Acute (7) Hypertension: Code(s): I10 - Essential (primary) hypertension Status: Acute (8) Anticoagulant long-term use: Code(s): Z79.01 - FPC (current) use of anticoagulants Status: Acute Additional Plan 12/15/21 Likely seizure episode. Patient loaded with Keppra in the emergency room. Supportive care CT of the head with no acute intracranial abnormality Seizure precautions Continue levodopa carbidopa Supportive care Patient is on warfarin and aspirin and Lipitor. Supportive care. Continue to monitor. 12/16/21 ativan for mild agitation cont Keppra for seizure prevention pt is total care cont home meds cont supportive Subjective Date/time seen: 12/16/21 11:52 pt doing ok noted to have repetitive moments and lip smacking, is able to stop and speak to me during episode. baseline mental status AAOx1 Exam Narrative: GEN: NAD, AAOx1, cooperative, mild agitation, frail elderly appearing HEENT: NCAT, MMM, EOMI Neck: no JVD Heart: S1S2 RRR Lungs: CTA B/l Abd: soft, NT, ND, bowel sounds normoactive Ext: moves all, no cyanosis, no clubbing, no edema Neuro: moves all extremities equally, CN intact Psych: mood reduced, affect congruent flattened, poor eye contact Objective Data Vital Signs Vital Signs: Vital Signs - 24 hr 12/15/21 17:36 12/15/21 17:41 12/15/21 17:42 Temperature 97.7 F Pulse Rate 58 L 53 L 65 Respiratory Rate 16 13 16 Blood Pressure 183/78 H 183/78 H Pulse Oximetry 100 100 100 12/15/21 17:45 12/15/21 17:47 12/15/21 18:14 Temperature Pulse Rate 69 72 56 L Respiratory Rate 17 12 16 Blood Pressure 171/70 H Pulse Oximetry 100 100 12/15/21 18:15 12/15/21 18:30 12/15/21 18:45 Temperature Pulse Rate 57 L 63 59 L Respiratory Rate 16 14 11 L Blood Pressure Pulse Oximetry 100 12/15/21 18:50 12/15/21 19:00 12/15/21 19:02 Temperature Pulse Rate 54 L 52 L 56 L Respiratory Rate 19 19 20 Blood Pressure 161/77 H 157/75 H Pulse Oximetry 100 100 100 12/15/21 19:03 12/15/21 19:15 12/15/21 19:17 Temperature Pulse Rate 58 L 57 L 58 L Respiratory Rate 21 H 18 19 Blood Pressure 167/75 H Pulse Oximetry 100 100 100 12/15/21 19:30 12/15/21 19:31 12/15/21 19:45 Temperature Pulse Rate 65 72 57 L Respiratory Rate 19 13 17 Blood Pressure 152/86 H Pulse Oximetry 100 100 100 12/15/21 19:46 12/15/21 20:00 12/15/21 20:01 Temperature Pulse Rate 60 70 60 Respiratory Rate 21 H 14 11 L Blood Pressure 167/69 H 159/63 H Pulse Oximetry 99 100 100 12/15/21 20:15 12/15/21 20:16 12/15/21 20:30 Temperature Pulse Rate 64 57 L 58 L Respiratory Rate 15 14 11 L Blood Pressure 153/72 H Pulse Oximetry 100 100 100 12/15/21 20:32 12/15/21 20:45 12/15/21 20:46 Temperature Pulse Rate 52 L 55 L 57 L Respiratory Rate 13 15 16 Blood Pressure 159/63 H 138/90 Pulse Oximetry
[2021-12-16] MEDS: levETIRAcetam 500 MG TABLET 1500 MG PO ×2 (12:11→22:35)
[2021-12-16] MEDS: LORazepam INJ (*CRX) 2 MG/ML VIAL 0.5 MG IV PUSH (12:28)
[2021-12-16] MEDS: CARBIDOPA/LEVODOPA 25/100 MG TABLET 1 TABLET PO ×2 (13:17→17:04)
[2021-12-16] MEDS: lamoTRIgine 25 MG TABLET 50 MG PO ×2 (13:17→22:35)
[2021-12-16] MEDS: amLODIPine BESYLATE 5 MG TABLET PO (13:17)
[2021-12-16] MEDS: ATORVASTATIN 40 MG TABLET PO (13:17)
[2021-12-16 13:21] VITALS: BP 145/69; PULSE 88; RESP 18; TEMP 36.4; O2SAT 95
[2021-12-16] MEDS: DONEPEZIL HCL 10 MG TABLET PO (17:05)
[2021-12-16] MEDS: MEMANTINE HCL XR 28 MG CAP PO (17:06)
[2021-12-16] MEDS: LORazepam (*CRX) 0.5 MG TABLET PO (17:13)
[2021-12-16 22:00] VITALS: BP 132/60; PULSE 40; RESP 17; TEMP 36.6; O2SAT 97
[2021-12-16] MEDS: ACETAMINOPHEN 500 MG TABLET 1000 MG PO (22:35)
[2021-12-17 05:54] VITALS: BP 119/42; PULSE 46; RESP 18; TEMP 36.2; O2SAT 100
[2021-12-17 06:31] LABS: Anion Gap 5 mmol/L (8-16); Blood Urea Nitrogen 16 mg/dL (9-20); Calcium 8.5 mg/dL (8.4-10.2); Carbon Dioxide 24 mmol/L (22-30); Chloride 106 mmol/L (98-107); Estimated CRCL calculation 68 ml/min; Estimated Glomerular Filt Rate > 60; Glucose 67 mg/dL (65-110); Potassium 3.8 mmol/L (3.4-5.0); Sodium 135 mmol/L (137-145)
[2021-12-17 06:33] LABS: Hematocrit 40.7 % (42.0-52.0); Hemoglobin 11.9 g/dL (14.0-18.0); Mean Corpuscular HGB Conc 29.2 g/dl (32-36); Mean Corpuscular Hemoglobin 29.9 pg (26-34); Mean Corpuscular Volume 102.3 fl (80-100); Mean Platelet Volume 10.7 fl (7.4-10.4); Platelet Count Result 238 k/mm3 (150-375); Red Blood Count 3.98 M/mm3 (4.6-6.20); Red Cell Distribution Width 14.6 % (11.5-14.5); White Blood Count 5.2 K/mm3 (4.5-10.0)
[2021-12-17] MEDS: amLODIPine BESYLATE 5 MG TABLET PO (09:19)
[2021-12-17] MEDS: ACETAMINOPHEN 500 MG TABLET 1000 MG PO (09:19)
[2021-12-17] MEDS: ASPIRIN 81 MG ENTERIC TABLET PO (09:19)
[2021-12-17] MEDS: lamoTRIgine 25 MG TABLET 50 MG PO (09:19)
[2021-12-17] MEDS: CARBIDOPA/LEVODOPA 25/100 MG TABLET 1 TABLET PO ×3 (09:19→16:19)
[2021-12-17] MEDS: levETIRAcetam 500 MG TABLET 1500 MG PO (09:19)
[2021-12-17] MEDS: ATORVASTATIN 40 MG TABLET PO (09:19)
[2021-12-17 11:22] LABS: INR 2.5; Prothrombin Time 26.2 Seconds (11.1-14.7)
[2021-12-17 14:00] VITALS: BP 112/64; PULSE 52; RESP 18; O2SAT 99
--- NOTE | 2021-12-17 15:23 | PM.DS ---
DS: Admitting Diagnosis Discharge Date 12/17/21 Admitting Diagnosis (1) Breakthrough seizure: Code(s): G40.919 - Epilepsy, unspecified, intractable, without status epilepticus (2) Parkinson's disease: Code(s): G20 - Parkinson's disease (3) Parkinson's disease dementia: Code(s): G20 - Parkinson's disease; F02.80 - Dementia in other diseases classified elsewhere without behavioral disturbance (4) Chronic arterial ischemic stroke, multifocal, multiple vascular territories: Code(s): I69.30 - Unspecified sequelae of cerebral infarction DS: Discharge Diagnosis Discharge Diagnosis (1) Anticoagulant long-term use: Code(s): Z79.01 - halfway (current) use of anticoagulants Status: Acute (2) Hypertension: Code(s): I10 - Essential (primary) hypertension Status: Acute (3) Breakthrough seizure: Code(s): G40.919 - Epilepsy, unspecified, intractable, without status epilepticus Status: Acute (4) Chronic arterial ischemic stroke, multifocal, multiple vascular territories: Code(s): I69.30 - Unspecified sequelae of cerebral infarction Status: Acute (5) Parkinson's disease dementia: Code(s): G20 - Parkinson's disease; F02.80 - Dementia in other diseases classified elsewhere without behavioral disturbance Status: Acute (6) Parkinson's disease: Code(s): G20 - Parkinson's disease Status: Acute (7) Sinus bradycardia: Code(s): R00.1 - Bradycardia, unspecified Status: Acute (8) Seizure disorder: Code(s): G40.909 - Epilepsy, unspecified, not intractable, without status epilepticus Status: Acute (9) AMS (altered mental status): Code(s): R41.82 - Altered mental status, unspecified Status: Acute (10) Dementia: Qualifiers: Dementia type: vascular dementia Dementia behavioral disturbance: without behavioral disturbance Qualified Code(s): F01.50 - Vascular dementia without behavioral disturbance Code(s): F03.90 - Unspecified dementia without behavioral disturbance Status: Chronic (11) History of seizures: Code(s): Z87.898 - Personal history of other specified conditions Status: Chronic (12) Altered mental status: Code(s): R41.82 - Altered mental status, unspecified Status: Acute DS: Summary Hospital Course Reason for hospitalization: BREAKTHROUGH SEIZURE Hospital Course: 76-year-old patient with advanced dementia Parkinson and seizure disorder admitted for breakthrough seizure activity. He was treated with loading dose of Keppra placed back on his home medications with increase dose of Keppra. he has not had any further episodes of seizure activity since admission. He is discharged back to his facility in stable condition with indications to follow-up with his outpatient neurologist and primary care doctor. Status at Discharge Functional status at discharge: wheelchair bound Overall status at discharge: patient is progressing back to baseline Time Spent with Patient Time attestation: Total time spent providing and/or coordinating discharge services: Time spent: Greater than 30 minutes Exam Narrative: GEN: NAD, AAOx1, cooperative, calm, frail elderly appearing HEENT: NCAT, MMM, EOMI Neck: no JVD Heart: S1S2 RRR Lungs: CTA B/l Abd: soft, NT, ND, bowel sounds normoactive Ext: moves all, no cyanosis, no clubbing, no edema Neuro: moves all extremities equally, CN intact DS: Data Data Completed and Pending Labs on day of discharge: Labs from last 24 hours 12/17/21 12/17/21 12/17/21 10:51 05:41 05:41 WBC 5.2 RBC 3.98 L Hgb 11.9 L Hct 40.7 L MCV 102.3 H D MCH 29.9 MCHC 29.2 L RDW 14.6 H Plt Count 238 MPV 10.7 H PT 26.2 H INR 2.5 Sodium 135 L Potassium 3.8 Chloride 106 Carbon Dioxide 24 Anion Gap 5 L BUN 16 Creatinine 0.80 Estim Creat Clear Calc 68
[2021-12-17] MEDS: DONEPEZIL HCL 10 MG TABLET PO (16:19)
[2021-12-17] MEDS: WARFARIN (*PBKC) 0.5 MG TABLET PO (16:19)
[2021-12-17] MEDS: WARFARIN (*PBKC) 3 MG TABLET 6 MG PO (16:19)
[2021-12-17] MEDS: LORazepam (*CRX) 0.5 MG TABLET PO (16:19)
[2021-12-17] MEDS: MEMANTINE HCL XR 28 MG CAP PO (16:19)
== END 2021-12-17 16:30 | disposition home or self-care (01) ==
LOC: ANHED 20:45 → ANH3MEDSUR 20:51
PROVIDERS: Admitting Provider Internal Medicine; Emergency Provider Emergency Medicine; Visit Provider Hospitalist
DX: G40.909 Epilepsy, unspecified, not intractable, without status epilepticus (principal); G20 Parkinson's disease; F02.80 Dementia in other diseases classified elsewhere, unspecified severity, without behavioral disturbance, psychotic disturbance, mood disturbance, and anxiety; R00.1 Bradycardia, unspecified; I10 Essential (primary) hypertension; Z86.73 Personal history of transient ischemic attack (TIA), and cerebral infarction without residual deficits; Z79.82 Long term (current) use of aspirin; Z79.899 Other long term (current) drug therapy; Z87.891 Personal history of nicotine dependence; Z79.01 Long term (current) use of anticoagulants
CPT/HCPCS: 36415; 70450; 71045; 80048; 80053; 81001; 83605; 85025; 85027; 85610; 85730; 93005; 96374; 99285; A9270; G0378; J2060

== ENCOUNTER 2021-12-18 20:20 | Emergency (ER) | payer MEDICARE, MEDICAID, SELFPAY ==
--- NOTE | ~2021-12-18 | XR_ITS ---
EXAMINATION: XR pelvis 1-2V DATE: 12/18/2021 20:52 INDICATION: Fall TECHNIQUE: An anteroposterior view of the pelvis was obtained with the hips in neutral and frog-leg l ateral positions. COMPARISON: None. FINDINGS: Alignment is normal. No fracture. Mild bilateral hip and sacroiliac osteoarthritis. Severe lower lumb ar spondylosis. IMPRESSION: 1. Degenerative skeletal changes. No acute osseous abnormality. Reviewed, dictated and finalized at location A. GLAZER
--- NOTE | ~2021-12-18 | CT_ITS ---
EXAMINATION: CT cervical spine wo con DATE: 12/18/2021 20:48 INDICATION: Fall. TECHNIQUE: Computed tomography (CT) of the cervical spine was performed without intravenous contrast. Automated exposure control and iterative reconstruction technique were employed. The dose-length pro duct was 516.02 mGy-cm. COMPARISON: None FINDINGS: Straightening of the normal cervical doses. No spondylolisthesis or facet subluxation. Moderate osteo arthritis at the atlantoaxial articulation. Vertebral body heights are normal. No fracture. Severe di sc height loss with degenerative endplate changes and small posterior endplate osteophytes C4-C5 and C5-C6 result in mild central canal stenosis at both levels. Mild disc height loss at the remaining ce rvical levels. Severe facet osteoarthritis bilaterally at C7-T1 and mild facet osteoarthritis in the more cephalad cervical spine. Multiple moderate neural from stenosis on the right at C4-C5 and mild n eural from stenosis at many of the remaining levels on both the left and right. Small amount of ather osclerotic calcific lesion at the bilateral carotid bulbs. Likely benign 4 mm hypodense nodule in the right thyroid lobe. Cervical soft tissues are otherwise unremarkable. Visualized airway and bilatera l apices of lungs are clear. IMPRESSION: 1. Severe cervical spondylosis. No acute osseous abnormality. Reviewed, dictated and finalized at location A. RIFUGAL CHILLER TECHNICIAN
--- NOTE | ~2021-12-18 | XR_ITS ---
EXAMINATION: XR chest 1V DATE: 12/18/2021 20:53 INDICATION: Seizures. Fall. TECHNIQUE: frontal view of the chest was obtained. COMPARISON: Chest radiograph dated 12/15/2021 FINDINGS: On loss and right hemithorax with persistent elevation the right hemidiaphragm. No focal airspace opa cities, pulmonary edema, pleural effusion or pneumothorax. Heart size is normal. Inferior right parat adela 2 cm diameter round opacity most likely dilated azygos vein although this could also represen t an enlarged lymph node. IMPRESSION: 1. No acute cardiopulmonary disease. 20 . 2 center diameter round opacity at the inferior right parat adela region most likely dilated azygos vein although differential would include an enlarged lymph node. Consider follow-up chest CT for more definitive determination. Reviewed, dictated and finalized at location A. ER WELDER IMPRESSION: 1. No acute cardiopulmonary disease. 20 . 2 center diameter round opacity at th e inferior right paratracheal region most likely dilated azygos vein although d ifferential would include an enlarged lymph node. Consider follow-up chest CT f or more definitive determination.
--- NOTE | ~2021-12-18 | CT_ITS ---
EXAMINATION: CT brain wo con DATE: 12/18/2021 20:47 INDICATION: Fall. Seizures. TECHNIQUE: Computed tomography (CT) of the head was performed without intravenous contrast. Sagittal and coronal reconstructions were performed. The mA was adjusted according to patient size. Iterative reconstruction technique was employed. The dose-length product was 605.33 mGy-cm. COMPARISON: head CT dated 12/15/21 FINDINGS: No fracture. Again seen are regions of encephalomalacia involving the right occipital lobe and more e xtensively involving the left occipital and posterior mesial left temporal lobe consistent with chron ic infarcts. Additional small old lacunar infarcts in the bilateral basal ganglia. No acute intracran ial hemorrhage, acute infarction or abnormal extra axial fluid collection. There is moderate scattere d white matter hypoattenuation consistent with chronic small vessel ischemic disease. Ventricles are normal and symmetric. No mass/mass effect. Mucosal thickening the right maxillary sinus. The orbits o utside and mastoid air cells are normal. Intracranial calcified cerebral atherosclerosis is noted. IMPRESSION: 1. No acute intracranial process. 2. Stable appearance of old infarcts in the bilateral occipital, left temporal lobes and bilateral ba bharath ganglia. 3. Moderate scattered white matter hypoattenuation consistent with chronic small vessel ischemic dise ase. Reviewed, dictated and finalized at location A. IOLOGY TECHNOLOGIST IMPRESSION: 1. No acute intracranial process. 2. Stable appearance of old infarcts in the bilateral occipital, left temporal lobes and bilateral basal ganglia. 3. Moderate scattered white matter hypoattenuation consistent with chronic smal l vessel ischemic disease.
[2021-12-18 20:22] VITALS: PULSE 57; RESP 16; TEMP 36.5; O2SAT 100
--- NOTE | 2021-12-18 21:40 | ED.GENADULT ---
HPI - General Adult General Chief complaint: Fall Stated complaint: FALL, ON COUMADIN Source: RN notes reviewed History of Present Illness HPI narrative: Patient presents emergency department from [facility] via EMS for fall. Patient is currently awake and alert states that he got out of bed and then on his way back to bed had fallen he denies any injuries at this time he was found down on the ground by staff patient does have a history of dementia patient currently denies any complaints he denies striking his head he denies any chest pain, shortness of breath abdominal pain or extremity pain Related Data Home Medications Medication Instructions Recorded Confirmed Namzaric 1 cap PO 1700 04/04/20 12/16/21 aspirin 81 mg PO DAILY 11/12/20 12/15/21 cholecalciferol (vitamin D3) 1,250 mcg PO MONTHLY 11/12/20 12/15/21 amlodipine 5 mg PO DAILY 06/03/21 12/15/21 carbidopa-levodopa 1 tablet PO TID 06/03/21 12/15/21 acetaminophen 1,000 mg PO BID 12/15/21 12/15/21 atorvastatin 40 mg PO DAILY 12/15/21 12/15/21 lorazepam 0.5 mg PO 1700 12/15/21 12/16/21 melatonin 3 mg BYMOUTH HS PRN 12/15/21 12/16/21 warfarin 0.5 mg PO 1700 12/15/21 12/16/21 warfarin 6 mg PO 1700 12/15/21 12/16/21 Allergies Allergy/AdvReac Type Severity Reaction Status Date / Time No Known Allergies Allergy Verified 11/22/21 11:22 Review of Systems Review of Systems: Gen.: Denies fevers or chills Eyes: Denies eye pain or visual change ENT: Denies pain Respiratory: Denies shortness of breath CV: Denies chest pain GI: Denies abdominal pain nausea, emesis Musculoskeletal: Denies back pain or muscle pain Neuro: Denies headache or striking head Skin: Denies rash Except as documented, all other systems reviewed and negative [facility] Past Medical History Medical History CVA (cerebral vascular accident) Dementia History of CVA (cerebrovascular accident) History of seizures Surgical History Surgical History Surgical history unknown Family History Family History Unknown Unknown family medical history Social History Social History Social History: He resides at [facility]. The patient is listed as a full code. Patient was listed as being on the [facility] papers. Angelica is listed as the spouse in the emergency contact number. Cassandra Messer is listed as the daughter in his chart. Smoking packs per day: 0.5 Smoking cigarettes per day: 10.0 Years smoked: 50 Smoking pack-years: 25.00 Smoking status: Never smoker Second hand tobacco smoke exposure: No Alcohol intake: never Substance use: never Substance use type: does not use Gender identity (if verbalized by the patient): Male Spiritual care concerns: No Exam Narrative: APPEARANCE: No acute distress, nontoxic, resting in bed EYES: PERRL HEENT: Normocephalic, atraumatic, OMM RESPIRATORY: No respiratory distress Clear to auscultation bilaterally with no rhonchi wheezing or rales. CARDIOVASCULAR: Regular rate and rhythm without murmurs rubs or gallops. ABDOMINAL: Soft, nontender, nondistended, no rebound or guarding MUSCULOSKELETAl: Moves all extremities. No clubbing, cyanosis or edema. No tenderness of bilateral upper and lower extremities NEURO: Awake and alert x 2. Following commands, speech normal, no focal deficits SKIN:: Warm, dry. No rashes lesions or abrasions PSYCHIATRIC: Normal affect/mood, Course Course Emergency Course: Discussed with radiology paratracheal Opacity seen on CT scan therefore the patient can have outpatient follow-up CT scan Discussed with patient results of workup and diagnosis. Discussed need for follow-up with primary care, proper use of medication, and reasons to return to the emergency department. Agnes
[2021-12-18 22:08] VITALS: BP 136/69; PULSE 46; RESP 14; O2SAT 96
[2021-12-18 23:12] VITALS: BP 165/83; PULSE 68; RESP 18
== END 2021-12-19 00:28 ==
PROVIDERS: Emergency Provider Emergency Medicine
DX: Z04.3 Encounter for examination and observation following other accident (principal); F03.90 Unspecified dementia, unspecified severity, without behavioral disturbance, psychotic disturbance, mood disturbance, and anxiety; Z86.73 Personal history of transient ischemic attack (TIA), and cerebral infarction without residual deficits; Z79.82 Long term (current) use of aspirin; Z79.01 Long term (current) use of anticoagulants; M47.812 Spondylosis without myelopathy or radiculopathy, cervical region; Z87.891 Personal history of nicotine dependence; W19.XXXA Unspecified fall, initial encounter
CPT/HCPCS: 70450; 71045; 72125; 72170; 99284

== ENCOUNTER 2022-03-13 10:12 | Emergency (ER) | payer MEDICARE, MEDICAID, SELFPAY ==
[2022-03-13] VITALS (93 sets, daily range): BP systolic 104–163; BP diastolic 40–85; PULSE 51–92; RESP 7–23; TEMP 36.1; O2SAT 80–100
--- NOTE | ~2022-03-13 | CT_ITS ---
EXAMINATION: CT brain wo con DATE: 03/13/2022 10:57 INDICATION: Seizure. Altered mental status. TECHNIQUE: Computed tomography (CT) of the head was performed without intravenous contrast. The dose- length product was 681.00 mGy-cm. Automated exposure control and iterative reconstruction technique w ere employed. COMPARISON: CT dated 12/18/2021 FINDINGS: Generalized atrophy. There are chronic infarctions of the left parietal, left temporal, boston ateral occipital lobes and bilateral basal ganglia. There are scattered severe periventricular and monson bcortical white matter changes, most likely related to small vessel ischemic disease (microangiopathy ). No acute intracranial hemorrhage, infarction, mass or mass effect. No ventriculomegaly or midline shift. Paranasal sinuses and mastoids are pneumatized. No depressed skull fractures. IMPRESSION: 1. No acute intracranial abnormality. 2: Stable multiple chronic infarctions, described above. 3: Advanced chronic age-related findings. Reviewed, dictated and finalized at location A.
--- NOTE | 2022-03-13 10:20 | ED.BACK ---
HPI - Back Pain/Injury General Chief Complaint: Altered Mental Status Stated Complaint: DECREASED LOC, POSSIBLE SEIZURE History of Present Illness HPI Narrative: 76-year-old male with history of seizure, dementia, Parkinson's presented to the emergency department for evaluation after possible seizure-like activity. Patient is normally alert but nonverbal at his baseline. Today the [facility]p found him slumped over in his chair and patient was nonresponsive. At the time patient was 86% on room air and had a heart rate in the 30s. When EMS arrived patient was saturating well on room air, and had a heart rate in the 60s to 70s. Patient has become more responsive in route to the emergency department. Upon arrival patient has no seizure-like activity. Patient is able to open his eyes to verbal and withdraws to pain. Patient had a similar admission in December for breakthrough seizure. Related Data Home Medications Medication Instructions Recorded Confirmed memantine ER 28 mg-donepezil 10 mg 1 cap PO 1700 04/04/20 12/16/21 capsule sprinkle,ext.release 24 hr (Namzaric) aspirin 81 mg tablet 81 mg PO DAILY 11/12/20 12/15/21 cholecalciferol (vitamin D3) 1,250 1,250 mcg PO MONTHLY 11/12/20 12/15/21 mcg (50,000 unit) capsule amlodipine 5 mg tablet 5 mg PO DAILY 06/03/21 12/15/21 carbidopa 25 mg-levodopa 100 mg 1 tablet PO TID 06/03/21 12/15/21 tablet acetaminophen 1,000 mg PO BID 12/15/21 12/15/21 atorvastatin 40 mg tablet 40 mg PO DAILY 12/15/21 12/15/21 lorazepam 0.5 mg tablet 0.5 mg PO 1700 12/15/21 12/16/21 melatonin 3 mg BYMOUTH HS PRN Insomnia 12/15/21 12/16/21 warfarin 1 mg tablet 0.5 mg PO 1700 12/15/21 12/16/21 warfarin 6 mg tablet 6 mg PO 1700 12/15/21 12/16/21 Allergies Allergy/AdvReac Type Severity Reaction Status Date / Time No Known Allergies Allergy Verified 11/22/21 11:22 Review of Systems Review of Systems: ROS unobtainable: Yes unobtainable due to mental status PMFSH Past Medical History Medical History CVA (cerebral vascular accident) Dementia History of CVA (cerebrovascular accident) History of seizures Surgical History Surgical History Surgical history unknown Family History Family History Unknown Unknown family medical history Social History Social History Social History: He resides at [facility]. The patient is listed as a full code. Patient was listed as being on the [facility] papers. Angelica is listed as the spouse in the emergency contact number. Cassandra Messer is listed as the daughter in his chart. Smoking packs per day: 0.5 Smoking cigarettes per day: 10.0 Years smoked: 50 Smoking pack-years: 25.00 Smoking status: Never smoker Second hand tobacco smoke exposure: No Alcohol intake: never Substance use: never Substance use type: does not use Gender identity (if verbalized by the patient): Male Spiritual care concerns: No Exam Narrative: APPEARANCE: Well appearing, no pain, no distress, well-nourished. HEAD: normocephalic, atraumatic. EYES: PERRLA/EOMI, conjunctivae clear. NOSE: Normal no drainage NECK: Supple. No adenopathy, no masses. RESPIRATORY: Airway patent, respirations nonlabored. Clear to auscultation bilaterally, no rales, rhonchi, wheezing. CARDIOVASCULAR: Regular rate and rhythm without murmurs rubs or gallops. ABDOMINAL: Soft, nontender, nondistended, normal bowel sounds MUSCULOSKELETAL: Moves all extremities. Strength/ROM intact, No edema, No calf tenderness. NEURO: Patient is more alert. But has normal baseline per family SKIN: Warm, dry. Normal Color PSYCHIATRIC: Normal affect/mood. Course Course Emergency Course: Discussed case with the nurse practitioner on-call for
--- NOTE | 2022-03-13 10:22 | PC.NURSE ---
Called pharmacy about Shukri Caballero prompted to take medication but bin is out. Pharmacy to send
[2022-03-13] MEDS: levETIRAcetam 1000MG/NACL100ML 1,000 MG/100 ML BAG 400 MG IVPB (10:31)
--- NOTE | 2022-03-13 10:43 | ECG_ITS ---
Measurements Intervals [place] Rate: 63 P: 56 [place]: 124 QRS: -12 QRSD: 94 T: 58 QT: 413 QTc: 425 Interpretive Statements SINUS RHYTHM LEFT VENTRICULAR HYPERTROPHY AND ST-T CHANGE [VOLTAGE CRITERIA PLUS ST/T ABNORMALITY] ABNORMAL ECG COMPARED TO ECG 12/15/2021 17:38:53 LEFT VENTRICULAR HYPERTROPHY NOW PRESENT ST (T WAVE) DEVIATION NOW PRESENT PROLONGED QT INTERVAL NO LONGER PRESENT Electronically Signed On 03-13-2022 17:01:57 CDT by Albino Mcallister M.D.
--- NOTE | 2022-03-13 10:43 | PC.NURSE ---
Pt off floor to CT scan
[2022-03-13 10:52] LABS: Basophils Absolute Auto 0.1 K/mm3 (0.0-0.1); Basophils Percent Auto 0.8 % (0.2-1.2); Eosinophils Absolute Auto 0.2 K/mm3 (0-0.3); Eosinophils Percent Auto 3.5 % (0-4.4); Hematocrit 36.7 % (42.0-52.0); Hemoglobin 11.8 g/dL (14.0-18.0); Immature Granulocyte Absolute 0.06 K/mm3 (0.00-0.031); Lymphocytes Absolute Auto 1.43 K/mm3 (0.9-3.2); Lymphocytes Percent Auto 24.1 % (18.3-44.2); Mean Corpuscular HGB Conc 32.2 g/dl (32-36); Mean Corpuscular Hemoglobin 29.1 pg (26-34); Mean Corpuscular Volume 90.4 fl (80-100); Mean Platelet Volume 10.2 fl (7.4-10.4); Monocytes Absolute Auto 0.5 K/mm3 (0.1-0.6); Monocytes Percent Auto 8.9 % (2.6-8.5); Neutrophils Absolute Auto 3.7 K/mm3 (1.3-6.7); Neutrophils Percent Auto 61.7 % (45.5-73.1); Platelet Count Result 226 k/mm3 (150-375); Red Blood Count 4.06 M/mm3 (4.6-6.20); Red Cell Distribution Width 15.2 % (11.5-14.5); White Blood Count 5.9 K/mm3 (4.5-10.0)
[2022-03-13 11:01] LABS: Lactic Acid Reflex 1.6 mmol/L (0.7-2.0)
[2022-03-13 11:02] LABS: Alanine Aminotransferase 8 U/L (6-50); Alkaline Phosphatase 77 U/L (38-126); Anion Gap 7 mmol/L (8-16); Aspartate Amino Transferase 30 U/L (17-59); Bilirubin,Total 0.3 mg/dL (0.2-1.3); Blood Urea Nitrogen 17 mg/dL (9-20); Carbon Dioxide 28 mmol/L (22-30); Chloride 108 mmol/L (98-107); Estimated CRCL calculation 65 ml/min; Estimated Glomerular Filt Rate > 60; Glucose 101 mg/dL (65-110); INR 2.4; Potassium 3.8 mmol/L (3.4-5.0); Prothrombin Time 25.6 Seconds (11.1-14.7); Sodium 143 mmol/L (137-145)
[2022-03-13 11:03] LABS: Partial Thromboplastin Time 42.7 SECONDS (22.3-36.8)
[2022-03-13 11:22] LABS: SARS-CoV-2 RNA PCR Negative
--- NOTE | 2022-03-13 11:34 | PC.NURSE ---
Per , sees Dr Moore, neurologist at [facility]. called and was updated on patient status.
[2022-03-13 11:54] LABS: Appearance Urine Slightly Cloudy (Clear); Bilirubin Urine Negative (Negative); Blood Urine Negative (Negative); Color Urine Yellow (Yellow); Glucose Urine UA Negative (Negative); Ketones Urine Negative (Negative); Leukocyte Esterase Ur Negative LEU/UL (Negative); Nitrate Urine Negative (Negative); Protein Urine Negative (Negative); Urobilinogen Urine 0.2 mg/dL (<2.0)
--- NOTE | 2022-03-13 12:11 | PC.NURSE ---
Update: Pt is much more alert, arousable to verbal stimuli. Answering yes / no questions. Will alert MD
[2022-03-13 12:17] LABS: RBC Urine 0-2 /hpf (0-2); Squamous Epithelial Cell Urine Rare /hpf (Few); WBC Urine 0-3 /hpf
--- NOTE | 2022-03-13 12:37 | PC.NURSE ---
Separator Inserter at [facility] called for update on patient. Requesting we speak to patient's neurologist, Dr Duque, at [facility]. Nurse number: [phone] Azalea
--- NOTE | 2022-03-13 12:42 | PC.NURSE ---
Attempted to call Azalea nurse for Dr Duque at [facility], left message requesting call back.
[2022-03-13 12:51] LABS: Add Urine Microscopic? YES
--- NOTE | 2022-03-13 13:29 | PC.NURSE ---
Called Azalea (nurse for Dr Duque, Neurologist at [facility]) at request of Dr Olmstead to clarify what medication Dr Duque would like to increase from 200 to 300 mg.
--- NOTE | 2022-03-13 13:37 | PC.NURSE ---
Spoke with Azalea, neurology nurse at [facility]. States note from Genie Taylor NP, has increase Zonisamide PM dose from 200 mg to 300 mg.
--- NOTE | 2022-03-13 14:55 | PC.NURSE ---
Spoke with Naomie, nurse at [facility], gave update on patient who will be discharged from our facility. Aware of increase in medications per neurology, course of care while in ER, and the fact that patient had Gar in ER. No transport from facility, Pt qualifies for ambulance.
--- NOTE | 2022-03-13 15:21 | PC.NURSE ---
Awaiting ambulance transfer at this time.
--- NOTE | 2022-03-13 17:13 | PC.NURSE ---
Ambulance has still not picked up patient for transfer back to [facility]. Spoke with nurse at [facility] to confirm dietary restrictions for this patient. Per Naomie, nurse at [facility], regular diet with no restrictions.
--- NOTE | 2022-03-13 17:40 | PC.NURSE ---
OK for patient to eat per MD. Tech to assist patient with eating at this time.
--- NOTE | 2022-03-13 18:05 | PC.NURSE ---
Pt conversing, eating independently. Still waiting on ambulance transfer.
--- NOTE | 2022-03-13 18:56 | PC.NURSE ---
Called and left a message for regarding patient status and that patient is still waiting on ambulance transfer. Called and spoke with daughter about the same. Pt is resting comfortably, conversing appropriately, tolerated dinner well.
[2022-03-13] MEDS: ZONISAMIDE 100 MG CAPSULE 300 MG PO (20:38)
== END 2022-03-13 21:20 | disposition home or self-care (01) ==
PROVIDERS: Emergency Provider Emergency Medicine
DX: G40.909 Epilepsy, unspecified, not intractable, without status epilepticus (principal); G20 Parkinson's disease; F02.80 Dementia in other diseases classified elsewhere, unspecified severity, without behavioral disturbance, psychotic disturbance, mood disturbance, and anxiety; F17.210 Nicotine dependence, cigarettes, uncomplicated; Z86.73 Personal history of transient ischemic attack (TIA), and cerebral infarction without residual deficits; Z20.822 Contact with and (suspected) exposure to COVID-19; Z79.82 Long term (current) use of aspirin; Z79.01 Long term (current) use of anticoagulants
CPT/HCPCS: 36415; 70450; 80053; 81001; 83605; 85025; 85610; 85730; 93005; 96374; 99284; A9270; C9803; J1953; U0003; U0005

== ENCOUNTER 2022-03-19 13:27 | Emergency (ER) | payer MEDICARE, MEDICAID, SELFPAY ==
[2022-03-19] VITALS (40 sets, daily range): BP systolic 133–176; BP diastolic 57–88; PULSE 43–88; RESP 12–20; TEMP 36.7; O2SAT 97–100
--- NOTE | ~2022-03-19 | XR_ITS ---
XR chest 1V portable DATE: 03/19/2022 14:04 INDICATION: Altered mental status TECHNIQUE: Portable supine AP chest on 03/19/2022 at 1359 hours COMPARISON: 12/18/2021 AP chest FINDINGS: Borderline heart size. Aortic calcification and unfolding. There is mild infiltrate or atelectasis at the lung bases, right greater than left, and chronic eleva tion of the right leaf of the diaphragm. The lungs otherwise appear clear. No pleural effusion or pneumothorax is noted. IMPRESSION: Mild infiltrate or atelectasis at the lung bases, right greater than left Reviewed, dictated and finalized at location A. IMPRESSION: Mild infiltrate or atelectasis at the lung bases, right greater em n left
--- NOTE | ~2022-03-19 | CT_ITS ---
EXAMINATION: CT brain wo con DATE: 03/19/2022 13:57 INDICATION: Altered mental status. Unresponsiveness. TECHNIQUE: Computed tomography (CT) of the head was performed without intravenous contrast. The mA wa s adjusted according to patient size. Iterative reconstruction technique was employed. The dose-lengt h product was 605.33 mGy-cm. COMPARISON: Head CT 03/13/2022 FINDINGS: There is old infarct in left cerebellum. There is an old infarct involving left temporal oc cipital region. There are old infarcts in the bilateral basal ganglia and thalami. There are scattere d areas of low attenuation in the cerebral white matter. There is an old infarct in right parietal oc cipital region. There is no intracranial hemorrhage, acute infarction, or abnormal intracranial mass lesion. There is ex vacuo dilatation of the lateral ventricles. The orbits are normal. There is mild mucosal thickening in the paranasal sinuses. The mastoid air cells are normal. Cerumen occludes the l eft external auditory canal. IMPRESSION: 1. Old infarcts in the brain. 2. Stable extensive nonspecific cerebral white matter disease, which likely represents chronic small vessel ischemic disease. 3. Cerumen occludes left external auditory canal. Reviewed, dictated and finalized at location A. IMPRESSION: 1. Old infarcts in the brain. 2. Stable extensive nonspecific cerebral white matter disease, which likely rep resents chronic small vessel ischemic disease. 3. Cerumen occludes left external auditory canal.
--- NOTE | 2022-03-19 13:34 | ECG_ITS ---
Measurements Intervals [place] Rate: 57 P: 56 [place]: 151 QRS: 8 QRSD: 98 T: 29 QT: 443 QTc: 431 Interpretive Statements SINUS BRADYCARDIA WITH MARKED SINUS ARRHYTHMIA NONSPECIFIC T-WAVE ABNORMALITY COMPARED TO ECG 03/13/2022 10:36:38 SINUS BRADYCARDIA NOW PRESENT Electronically Signed On 03-19-2022 20:37:09 CDT by Marry Rodriguez M.D.
[2022-03-19 13:41] LABS: Glucose Point of Care 87 mg/dl (65-105)
--- NOTE | 2022-03-19 14:01 | ED.AMS ---
HPI - Altered Mental Status General Chief Complaint: Altered Mental Status Stated Complaint: unresponsive, >600 bg Time Seen by Provider: 03/19/22 13:33 History of Present Illness HPI narrative: Pt found at local NH unresponsive by staff. Per EMS pt was not even responsive to painful stimuli. Pt has a history of seizures from [place]. Pt now more responsive and answereing questions, pt denies fever, CP, SOB or one sided weakness. Pt denies PALMER. Related Data Home Medications Medication Instructions Recorded Confirmed memantine ER 28 mg-donepezil 10 mg 1 cap PO 1700 04/04/20 12/16/21 capsule sprinkle,ext.release 24 hr (Namzaric) aspirin 81 mg tablet 81 mg PO DAILY 11/12/20 12/15/21 cholecalciferol (vitamin D3) 1,250 1,250 mcg PO MONTHLY 11/12/20 12/15/21 mcg (50,000 unit) capsule amlodipine 5 mg tablet 5 mg PO DAILY 06/03/21 12/15/21 carbidopa 25 mg-levodopa 100 mg 1 tablet PO TID 06/03/21 12/15/21 tablet acetaminophen 1,000 mg PO BID 12/15/21 12/15/21 atorvastatin 40 mg tablet 40 mg PO DAILY 12/15/21 12/15/21 lorazepam 0.5 mg tablet 0.5 mg PO 1700 12/15/21 12/16/21 melatonin 3 mg BYMOUTH HS PRN Insomnia 12/15/21 12/16/21 warfarin 1 mg tablet 0.5 mg PO 1700 12/15/21 12/16/21 warfarin 6 mg tablet 6 mg PO 1700 12/15/21 12/16/21 Allergies Allergy/AdvReac Type Severity Reaction Status Date / Time No Known Allergies Allergy Verified 11/22/21 11:22 Review of Systems Review of Systems: All systems reviewed & are unremarkable except as noted in HPI and below PMFSH Past Medical History Medical History CVA (cerebral vascular accident) Dementia History of CVA (cerebrovascular accident) History of seizures Surgical History Surgical History Surgical history unknown Family History Family History Unknown Unknown family medical history Social History Social History Social History: He resides at [facility]. The patient is listed as a full code. Patient was listed as being on the longterm papers. Angelica is listed as the spouse in the emergency contact number. Cassandra Messer is listed as the daughter in his chart. Smoking packs per day: 0.5 Smoking cigarettes per day: 10.0 Years smoked: 50 Smoking pack-years: 25.00 Smoking status: Never smoker Second hand tobacco smoke exposure: No Alcohol intake: never Substance use: never Substance use type: does not use Gender identity (if verbalized by the patient): Male Spiritual care concerns: No Exam Const: General: healthy appearing, no acute distress and alert Nutritional Appearance: well nourished Orientation/consciousness: patient oriented x3 Limitations: altered mental status (still a little slow to respond but mostly appropriate) HENMT: Head: normal to inspection Mouth: Yes Normal oral and palatal mucosa present Eyes: Conjunctivae: conjunctivae normal Pupils: Equal, round and reactive pupils present EOM: EOMs intact bilaterally Direct Ophthalmoscopy: no photophobia Neck: Neck: normal visual inspection and no meningeal signs Chest: Chest palpation & inspection: normal inspection of the chest Resp: Effort & Inspection: normal respiratory effort Auscultation: clear to auscultation bilaterally Cardio: Rate: regular rate Rhythm: regular rhythm GI: GI Palp: Yes Soft to palpation Auscultation: normal bowel sounds Skin: General skin exam: normal color Rashes: no rashes Neuro: General: patient oriented x3, moves all extremities, no meningeal signs and no focal motor deficits Cranial nerves: Yes Nystagmus not present Speech: normal speech Extrem: General: normal to inspection and no clubbing, cyanosis or edema Psych: Attitude: cooperative Course Course
--- NOTE | 2022-03-19 14:16 | PC.NURSE ---
dr. Duque, dr. Moore pt. neurologist at [facility]
[2022-03-19 14:52] LABS: Basophils Absolute Auto 0.1 K/mm3 (0.0-0.1); Eosinophils Absolute Auto 0.2 K/mm3 (0-0.3); Eosinophils Percent Auto 2.1 % (0-4.4); Hematocrit 36.8 % (42.0-52.0); Hemoglobin 11.4 g/dL (14.0-18.0); Immature Granulocyte Absolute 0.05 K/mm3 (0.00-0.031); Immature Granulocyte Percent A 0.7 % (0-0.5); Lymphocytes Absolute Auto 0.88 K/mm3 (0.9-3.2); Lymphocytes Percent Auto 12.5 % (18.3-44.2); Mean Corpuscular Hemoglobin 28.5 pg (26-34); Mean Platelet Volume 10.1 fl (7.4-10.4); Monocytes Absolute Auto 0.5 K/mm3 (0.1-0.6); Monocytes Percent Auto 7.4 % (2.6-8.5); Neutrophils Absolute Auto 5.4 K/mm3 (1.3-6.7); Neutrophils Percent Auto 76.3 % (45.5-73.1); Platelet Count Result 230 k/mm3 (150-375); Red Cell Distribution Width 15.5 % (11.5-14.5)
[2022-03-19 14:53] LABS: Appearance Urine Clear (Clear); Bilirubin Urine Negative (Negative); Blood Urine Negative (Negative); Color Urine Yellow (Yellow); Glucose Urine UA Negative (Negative); Ketones Urine Negative (Negative); Leukocyte Esterase Ur Negative LEU/UL (Negative); Nitrate Urine Negative (Negative); Protein Urine Negative (Negative)
[2022-03-19 14:59] LABS: INR 1.8; Prothrombin Time 20.1 Seconds (11.1-14.7)
[2022-03-19 15:00] LABS: Partial Thromboplastin Time 31.1 SECONDS (22.3-36.8)
[2022-03-19 15:02] LABS: Add Urine Microscopic? NO
[2022-03-19 15:04] LABS: Albumin Level 3.7 g/dL (3.5-5.1); Alkaline Phosphatase 80 U/L (38-126); Anion Gap 6 mmol/L (8-16); Aspartate Amino Transferase 25 U/L (17-59); Bilirubin,Total 0.3 mg/dL (0.2-1.3); Blood Urea Nitrogen 15 mg/dL (9-20); Calcium 8.3 mg/dL (8.4-10.2); Carbon Dioxide 22 mmol/L (22-30); Chloride 112 mmol/L (98-107); Estimated Glomerular Filt Rate > 60; Glucose 96 mg/dL (65-110); Sodium 140 mmol/L (137-145)
[2022-03-19 15:32] LABS: Alanine Aminotransferase < 6 U/L (6-50)
== END 2022-03-19 17:50 ==
PROVIDERS: Emergency Provider Emergency Medicine
DX: G40.909 Epilepsy, unspecified, not intractable, without status epilepticus (principal); F03.90 Unspecified dementia, unspecified severity, without behavioral disturbance, psychotic disturbance, mood disturbance, and anxiety; Z86.73 Personal history of transient ischemic attack (TIA), and cerebral infarction without residual deficits; Z79.01 Long term (current) use of anticoagulants
CPT/HCPCS: 36415; 51701; 70450; 71045; 80053; 81003; 82948; 85025; 85610; 85730; 93005; 99284

== ENCOUNTER 2022-04-28 13:54 | Emergency (ER) | payer MEDICARE, MEDICAID, SELFPAY ==
[2022-04-28] VITALS (24 sets, daily range): BP systolic 132–139; BP diastolic 58–74; PULSE 66–132; RESP 8–19; O2SAT 95–100
--- NOTE | ~2022-04-28 | CT_ITS ---
EXAMINATION: CT brain wo con DATE: 04/28/2022 14:00 INDICATION: altered . TECHNIQUE: Computed tomography (CT) of the head was performed without intravenous contrast. The mA wa s adjusted according to patient size. Iterative reconstruction technique was employed. The dose-lengt h product was 605.33 mGy-cm. COMPARISON: 03/19/2022 FINDINGS: No acute intracranial hemorrhage or extra-axial fluid collection. No hydrocephalus, mass, or herniation. No acute ischemic infarct. Unremarkable dural venous sinus attenuation. No acute osseous abnormality. The aerated spaces are clear. Mild atrophy and severe chronic white matter change. Atherosclerotic intracranial calcification. Old left occipital, right parieto-occipital, bilateral basal ganglia and thalami, and cerebellar infarcts . IMPRESSION: No acute intracranial process. Reviewed, dictated and finalized at location K.
--- NOTE | ~2022-04-28 | XR_ITS ---
EXAMINATION: XR chest 1V portable DATE: 04/28/2022 14:16 INDICATION: Altered mental status. TECHNIQUE: A single frontal view of the chest was obtained. COMPARISON: Chest single view 03/19/2022 FINDINGS: There is mild atelectasis versus scarring at the lung bases. No pleural effusion or pneumot horax. The heart size is normal. IMPRESSION: 1. Stable mild atelectasis versus scarring at the lung bases. Reviewed, dictated and finalized at location A.
--- NOTE | 2022-04-28 13:58 | ECG_ITS ---
Measurements Intervals [place] Rate: 66 P: 58 [place]: 152 QRS: 11 QRSD: 92 T: 83 QT: 400 QTc: 422 Interpretive Statements SINUS RHYTHM WITH SINUS ARRHYTHMIA BORDERLINE T WAVE ABNORMALITY- DIFFUSE LEADS BASELINE ARTIFACT- I, III, AVL, V1, V3-V6 BORDERLINE ECG Electronically Signed On 04-28-2022 15:34:26 CDT by Familia Reynolds D.O.
[2022-04-28 14:09] LABS: Glucose Point of Care 121 mg/dl (65-105)
[2022-04-28 14:21] LABS: Basophils Absolute Auto 0.1 K/mm3 (0.0-0.1); Basophils Percent Auto 1.3 % (0.2-1.2); Eosinophils Absolute Auto 0.1 K/mm3 (0-0.3); Eosinophils Percent Auto 0.6 % (0-4.4); Hematocrit 36.7 % (42.0-52.0); Hemoglobin 12.1 g/dL (14.0-18.0); Immature Granulocyte Absolute 0.28 K/mm3 (0.00-0.031); Immature Granulocyte Percent A 3.4 % (0-0.5); Lymphocytes Absolute Auto 1.07 K/mm3 (0.9-3.2); Lymphocytes Percent Auto 12.9 % (18.3-44.2); Mean Corpuscular Volume 91.1 fl (80-100); Mean Platelet Volume 9.8 fl (7.4-10.4); Monocytes Absolute Auto 0.6 K/mm3 (0.1-0.6); Monocytes Percent Auto 7.6 % (2.6-8.5); Neutrophils Absolute Auto 6.1 K/mm3 (1.3-6.7); Neutrophils Percent Auto 74.2 % (45.5-73.1); Platelet Count Result 406 k/mm3 (150-375); Red Blood Count 4.03 M/mm3 (4.6-6.20); Red Cell Distribution Width 15.6 % (11.5-14.5); White Blood Count 8.3 K/mm3 (4.5-10.0)
--- NOTE | 2022-04-28 14:27 | ED.NEUROSD ---
HPI - Neuro Symptoms/Deficit General Chief Complaint: Suspected CVA Stated Complaint: AMS last known normal 1145 Time Seen by Provider: 04/28/22 14:11 Source: EMS and RN notes reviewed Mode of arrival: EMS Limitations: clinical condition History of Present Illness HPI Narrative: 76 years old -[place] male brought to the emergency room by ambulance from intermediate because sudden onset of vomiting, became unresponsive and diaphoretic. According to intermediate staff that patient had similar symptoms numerous of time in the past and was evaluated by a foreman or supervisor and operator who reported that this kind of spells has nothing to do with the heart and need to be evaluated by a neurologist at [facility]. Patient went to [facility] and was admitted for 7 days got discharged at 1030 this morning which is 4 hours ago then have another spell which is similar to his previous spells ,patient brought to our emergency room instead of going back to [facility]. Related Data Home Medications Medication Instructions Recorded Confirmed memantine ER 28 mg-donepezil 10 mg 1 cap PO 1700 04/04/20 12/16/21 capsule sprinkle,ext.release 24 hr (Namzaric) aspirin 81 mg tablet 81 mg PO DAILY 11/12/20 12/15/21 cholecalciferol (vitamin D3) 1,250 1,250 mcg PO MONTHLY 11/12/20 12/15/21 mcg (50,000 unit) capsule amlodipine 5 mg tablet 5 mg PO DAILY 06/03/21 12/15/21 carbidopa 25 mg-levodopa 100 mg 1 tablet PO TID 06/03/21 12/15/21 tablet acetaminophen 1,000 mg PO BID 12/15/21 12/15/21 atorvastatin 40 mg tablet 40 mg PO DAILY 12/15/21 12/15/21 lorazepam 0.5 mg tablet 0.5 mg PO 1700 12/15/21 12/16/21 melatonin 3 mg BYMOUTH HS PRN Insomnia 12/15/21 12/16/21 warfarin 1 mg tablet 0.5 mg PO 1700 12/15/21 12/16/21 warfarin 6 mg tablet 6 mg PO 1700 12/15/21 12/16/21 Allergies Allergy/AdvReac Type Severity Reaction Status Date / Time No Known Allergies Allergy Verified 11/22/21 11:22 Review of Systems Review of Systems: ROS unobtainable: Yes unobtainable due to medical condition PMFSH Past Medical History Medical History CVA (cerebral vascular accident) Dementia History of CVA (cerebrovascular accident) History of seizures Surgical History Surgical History Surgical history unknown Family History Family History Unknown Unknown family medical history Social History Social History Social History: He resides at [facility]. The patient is listed as a full code. Patient was listed as being on the intermediate papers. Angelica is listed as the spouse in the emergency contact number. Cassandra Messer is listed as the daughter in his chart. Smoking packs per day: 0.5 Smoking cigarettes per day: 10.0 Years smoked: 50 Smoking pack-years: 25.00 Smoking status: Never smoker Second hand tobacco smoke exposure: No Alcohol intake: never Substance use: never Substance use type: does not use Gender identity (if verbalized by the patient): Male Spiritual care concerns: No Exam Narrative: General appearance: Well-developed, well-nourished, unresponsive, responsive to painful stimulation only by opening his eyes and withdrawing Skin: Normal color Head: Normocephalic, nontraumatic Eyes: Clear conjunctiva ENT: Oropharynx normal, ears normal, nose normal Neck: Supple, nontender Chest and respiratory: Airway patent, no respiratory distress, no accessory muscle use Heart: Regular rate/rhythm Abdomen: Soft, nontender, no organomegaly, quiet bowel sounds Vascular: Normal peripheral pulses, normal capillary refill. Musculoskeletal: Normal muscle tone Neurologic: Unresponsive
[2022-04-28 14:35] LABS: Alanine Aminotransferase 16 U/L (6-50); Albumin Level 3.9 g/dL (3.5-5.1); Alkaline Phosphatase 83 U/L (38-126); Anion Gap 8 mmol/L (8-16); Aspartate Amino Transferase 26 U/L (17-59); Bilirubin,Total 0.4 mg/dL (0.2-1.3); Blood Urea Nitrogen 20 mg/dL (9-20); Carbon Dioxide 22 mmol/L (22-30); Chloride 110 mmol/L (98-107); Estimated CRCL calculation 65 ml/min; Estimated Glomerular Filt Rate > 60; Glucose 115 mg/dL (65-110); Potassium 4.4 mmol/L (3.4-5.0); Sodium 140 mmol/L (137-145)
[2022-04-28 14:41] LABS: INR 1.5; Prothrombin Time 17.4 Seconds (11.1-14.7)
[2022-04-28 14:42] LABS: Partial Thromboplastin Time 33.8 SECONDS (22.3-36.8)
[2022-04-28 14:45] LABS: Troponin I < 0.012 ng/mL (0.000-0.034)
[2022-04-28 15:00] LABS: Appearance Urine Slightly Cloudy (Clear); Bilirubin Urine 1+ (Negative); Blood Urine Negative (Negative); Color Urine Yellow (Yellow); Glucose Urine UA Negative (Negative); Ketones Urine 1+ mg/dL (Negative); Leukocyte Esterase Ur Negative LEU/UL (Negative); Nitrate Urine Negative (Negative); Protein Urine 1+ mg/dL (Negative); Specific Grav Ur >= 1.030 (1.001-1.035); Urobilinogen Urine 0.2 mg/dL (<2.0)
[2022-04-28 15:13] LABS: Mucus Urine Rare /lpf; Squamous Epithelial Cell Urine Rare /hpf (Few)
[2022-04-28 15:15] LABS: Add Urine Microscopic? YES
--- NOTE | 2022-04-28 19:01 | PC.NURSE ---
Report called to Vamhsi at [facility]. Waiting for transport.
--- NOTE | 2022-04-28 19:41 | PC.NURSE ---
[facility] here.
== END 2022-04-28 19:52 ==
PROVIDERS: Emergency Provider Emergency Medicine
DX: R40.4 Transient alteration of awareness (principal); F91.9 Conduct disorder, unspecified; G40.909 Epilepsy, unspecified, not intractable, without status epilepticus; R94.31 Abnormal electrocardiogram [ECG] [EKG]; F17.210 Nicotine dependence, cigarettes, uncomplicated; Z86.73 Personal history of transient ischemic attack (TIA), and cerebral infarction without residual deficits; Z79.01 Long term (current) use of anticoagulants
CPT/HCPCS: 36415; 51701; 70450; 71045; 80053; 81001; 82948; 84484; 85025; 85610; 85730; 93005; 99284

== ENCOUNTER 2022-05-08 19:12 | Emergency (ER) | payer MEDICARE, MEDICAID, SELFPAY ==
[2022-05-08] VITALS (11 sets, daily range): BP systolic 159; BP diastolic 64; PULSE 63–75; RESP 13–19; O2SAT 99–100
--- NOTE | ~2022-05-08 | XR_ITS ---
XR pelvis 1-2V 05/08/2022 19:38 Indication: Status post fall. Hip pain. Procedure: AP view of the pelvis Comparison: 12/18/2021 Findings: Pelvic rings are intact. There is moderate lower lumbar spondylosis. Mild osteoarthritis of the hips appear no fracture or traumatic malalignment. Impression: 1: No acute fracture. Reviewed, dictated and finalized at location A. Impression: 1: No acute fracture.
--- NOTE | ~2022-05-08 | CT_ITS ---
EXAMINATION: CT cervical spine wo con DATE: 05/08/2022 19:35 INDICATION: Neck pain after fall. TECHNIQUE: Computed tomography (CT) of the cervical spine was performed without intravenous contrast. The dose-length product was 414 mGy-cm. Automated exposure control and iterative reconstruction tech [employer] were employed. COMPARISON: CT dated 12/18/2021 FINDINGS: straightening of cervical lordosis. There is advanced degenerative disc disease at C4-5 and C5-6. No evidence for perched facet. Craniovertebral junction is unremarkable. Spinous processes are normal. No significant paraspinal soft tissue abnormality. No acute fracture or traumatic malalignme nt. There is carotid atherosclerosis. There is advanced multilevel uncinate and facet degenerative ch elliott, most advanced in the uncinate joints at C4-5 and C5-6. Lung apices are unremarkable. IMPRESSION: 1. No acute abnormality of the cervical spine. 2: Severe cervical spondylosis. Reviewed, dictated and finalized at location A.
--- NOTE | ~2022-05-08 | CT_ITS ---
EXAMINATION: CT brain wo con DATE: 05/08/2022 19:35 INDICATION: Status post fall. Head trauma. TECHNIQUE: Computed tomography (CT) of the head was performed without intravenous contrast. The dose- length product was 605.33 mGy-cm. Automated exposure control and iterative reconstruction technique w ere employed. COMPARISON: CT dated 04/28/2022 FINDINGS: Generalized atrophy. There are scattered severe periventricular and subcortical white matte r changes, most likely related to small vessel ischemic disease (microangiopathy). There are chronic bilateral occipital lobe, right frontal lobe and left thalamic infarctions. No ventriculomegaly or mi dline shift. Paranasal sinuses and mastoids are pneumatized. No depressed skull fractures. No acute i nfarction or hemorrhage. There is intracranial atherosclerosis. IMPRESSION: 1. No acute intracranial abnormality. No significant interval change from prior examination. Reviewed, dictated and finalized at location A.
--- NOTE | 2022-05-08 19:21 | ED.FALL ---
HPI - Fall General Chief Complaint: Fall Stated Complaint: glf Time Seen by Provider: 05/08/22 19:14 History of Present Illness HPI Narrative: Patient's is a 76-year-old male brought in by EMS from correction secondary to a ground-level fall. Fall was unwitnessed. Patient has a history of dementia, very poor historian. Patient has no complaints at this time, states that I am hungry . Related Data Home Medications Medication Instructions Recorded Confirmed memantine ER 28 mg-donepezil 10 mg 1 cap PO 1700 04/04/20 12/16/21 capsule sprinkle,ext.release 24 hr (Namzaric) aspirin 81 mg tablet 81 mg PO DAILY 11/12/20 12/15/21 cholecalciferol (vitamin D3) 1,250 1,250 mcg PO MONTHLY 11/12/20 12/15/21 mcg (50,000 unit) capsule amlodipine 5 mg tablet 5 mg PO DAILY 06/03/21 12/15/21 carbidopa 25 mg-levodopa 100 mg 1 tablet PO TID 06/03/21 12/15/21 tablet acetaminophen 1,000 mg PO BID 12/15/21 12/15/21 atorvastatin 40 mg tablet 40 mg PO DAILY 12/15/21 12/15/21 lorazepam 0.5 mg tablet 0.5 mg PO 1700 12/15/21 12/16/21 melatonin 3 mg BYMOUTH HS PRN Insomnia 12/15/21 12/16/21 warfarin 1 mg tablet 0.5 mg PO 1700 12/15/21 12/16/21 warfarin 6 mg tablet 6 mg PO 1700 12/15/21 12/16/21 Allergies Allergy/AdvReac Type Severity Reaction Status Date / Time No Known Allergies Allergy Verified 11/22/21 11:22 Review of Systems Review of Systems: ROS unobtainable: Yes other (Dementia) PMFSH Past Medical History Medical History CVA (cerebral vascular accident) Dementia History of CVA (cerebrovascular accident) History of seizures Surgical History Surgical History Surgical history unknown Family History Family History Unknown Unknown family medical history Social History Social History Social History: He resides at [facility]. The patient is listed as a full code. Patient was listed as being on the correction papers. Angelica is listed as the spouse in the emergency contact number. Cassandra Messer is listed as the daughter in his chart. Smoking packs per day: 0.5 Smoking cigarettes per day: 10.0 Years smoked: 50 Smoking pack-years: 25.00 Smoking status: Never smoker Second hand tobacco smoke exposure: No Alcohol intake: never Substance use: never Substance use type: does not use Gender identity (if verbalized by the patient): Male Spiritual care concerns: No Exam Const: General: comfortable and no acute distress Limitations: other limitations (dementia) HENMT: Head: normal to inspection, normocephalic and atraumatic Ears: hearing grossly normal bilaterally, TM normal on the right and TM normal on the left General nose exam: Normal external nose present, Normal nares present and No nasal discharge present Face and sinus: normal facial exam Mouth: Yes Normal oral and palatal mucosa present and Yes lip normal Eyes: General: appearance normal, both eyes and all related structures Pupils: Equal, round and reactive pupils present EOM: EOMs intact bilaterally Neck: Neck: normal visual inspection Chest: Chest palpation & inspection: normal inspection of the chest Resp: Effort & Inspection: normal respiratory effort, able to speak in complete sentences, no respiratory distress and not tachypneic Auscultation: clear to auscultation bilaterally, no crackles, no rales, no rhonchi and no wheezes Cardio: Rate: regular rate Rhythm: regular rhythm GI: Inspection: normal to inspection GI Palp: No abdominal tenderness, Yes Soft to palpation, No Tenderness to palpation present (GI), No Guarding due to palpation present (GI), No Rigid due to palpation and No Rebound tenderness present Auscultation: normal bowel sounds Skin: General skin
--- NOTE | 2022-05-08 21:33 | PC.NURSE ---
213: Called and gave report to [facility]. Spoke with Renetta CELESTIN and gave report to her.
--- NOTE | 2022-05-08 21:34 | PC.NURSE ---
@2099 called [facility] to request transport. ETA midnight. @2103 called [facility] to request transport. declined @2106 called [facility] to request transport. declined @2129 [facility] eta would be 4 hours.
--- NOTE | 2022-05-08 23:56 | PC.NURSE ---
called [facility] for ETA update. ETA [id number]
--- NOTE | 2022-05-09 00:45 | PC.NURSE ---
[facility] here.
[2022-05-09 00:53] VITALS: BP 159/73; PULSE 79; RESP 18; O2SAT 100
== END 2022-05-09 00:56 ==
PROVIDERS: Emergency Provider Emergency Medicine
DX: Z04.3 Encounter for examination and observation following other accident (principal); F03.90 Unspecified dementia, unspecified severity, without behavioral disturbance, psychotic disturbance, mood disturbance, and anxiety; Z86.73 Personal history of transient ischemic attack (TIA), and cerebral infarction without residual deficits; Z79.82 Long term (current) use of aspirin; Z79.01 Long term (current) use of anticoagulants; M47.812 Spondylosis without myelopathy or radiculopathy, cervical region; F17.210 Nicotine dependence, cigarettes, uncomplicated; W18.30XA Fall on same level, unspecified, initial encounter
CPT/HCPCS: 70450; 72125; 72170; 99284

== ENCOUNTER 2022-08-06 01:21 | Emergency (ER) | payer MEDICARE, MEDICAID, SELFPAY ==
--- NOTE | ~2022-08-06 | CT_ITS ---
EXAMINATION: CT cervical spine wo con DATE: 08/06/2022 02:07 INDICATION: Status post fall. Neck pain. Dementia. TECHNIQUE: Computed tomography (CT) of the cervical spine was performed without intravenous contrast. The dose-length product was 434 mGy-cm. Automated exposure control and iterative reconstruction tech [employer] were employed. COMPARISON: 05/08/2022 FINDINGS: There is disc narrowing at C4-5 and C5-6. There are small dorsal osteophytes at these level s. Odontoid process is normal. Craniovertebral junction is normal. There is multilevel uncinate and f acet hypertrophy. No significant paraspinal soft tissue abnormality. There is carotid atherosclerosis . IMPRESSION: 1. No acute fracture. 2: Stable cervical spondylosis. Reviewed, dictated and finalized at location B.
--- NOTE | ~2022-08-06 | CT_ITS ---
EXAMINATION: CT brain wo con DATE: 08/06/2022 02:07 INDICATION: Status post fall. Patient on Coumadin. TECHNIQUE: Computed tomography (CT) of the head was performed without intravenous contrast. The dose- length product was 605.33 mGy-cm. Automated exposure control and iterative reconstruction technique w ere employed. COMPARISON: CT dated 05/08/2022 FINDINGS: There is generalized atrophy. There are chronic bilateral occipital lobe, right frontal lob e and left thalamic infarctions. There are scattered moderate periventricular and subcortical white m atter changes, most likely related to small vessel ischemic disease (microangiopathy). No acute intra cranial hemorrhage, infarction, mass or mass effect. Paranasal sinuses and mastoids are pneumatized. No depressed skull fractures. IMPRESSION: 1. No acute intracranial abnormality. 2: Chronic bilateral occipital lobe, right frontal lobe and left thalamic infarctions. 3: Chronic age-related findings. Reviewed, dictated and finalized at location B. IMPRESSION: 1. No acute intracranial abnormality. 2: Chronic bilateral occipital lobe, right frontal lobe and left thalamic infa rctions. 3: Chronic age-related findings.
[2022-08-06 01:23] VITALS: BP 141/65; PULSE 65; RESP 12; TEMP 36.4; O2SAT 100
--- NOTE | 2022-08-06 01:29 | ECG_ITS ---
Measurements Intervals [place] Rate: 54 P: 59 MD: 149 QRS: 8 QRSD: 99 T: 28 QT: 469 QTc: 445 Interpretive Statements SINUS BRADYCARDIA WITH OCCASIONAL SUPRAVENTRICULAR PREMATURE COMPLEXES NONSPECIFIC ST AND T-WAVE ABNORMALITY COMPARED TO ECG 04/28/2022 14:05:53 SINUS BRADYCARDIA NOW PRESENT Electronically Signed On 08-06-2022 14:21:37 CDT by Sabino Warren M.D.
--- NOTE | 2022-08-06 02:26 | ED.GENADULT ---
HPI - General Adult General Chief complaint: Fall Stated complaint: FALL Time Seen by Provider: 08/06/22 01:28 History of Present Illness HPI narrative: Patient 76-year-old gentleman who presents the emergency department with chief complaint of fall. Per the [facility] I saw the patient fall had no reported injuries but they did notice that he had blood work that showed that his INR was supratherapeutic. Patient currently has no complaints at this time. Related Data Home Medications Medication Instructions Recorded Confirmed memantine ER 28 mg-donepezil 10 mg 1 cap PO 1700 04/04/20 12/16/21 capsule sprinkle,ext.release 24 hr (Namzaric) aspirin 81 mg tablet 81 mg PO DAILY 11/12/20 12/15/21 cholecalciferol (vitamin D3) 1,250 1,250 mcg PO MONTHLY 11/12/20 12/15/21 mcg (50,000 unit) capsule amlodipine 5 mg tablet 5 mg PO DAILY 06/03/21 12/15/21 carbidopa 25 mg-levodopa 100 mg 1 tablet PO TID 06/03/21 12/15/21 tablet acetaminophen 1,000 mg PO BID 12/15/21 12/15/21 atorvastatin 40 mg tablet 40 mg PO DAILY 12/15/21 12/15/21 lorazepam 0.5 mg tablet 0.5 mg PO 1700 12/15/21 12/16/21 melatonin 3 mg BYMOUTH HS PRN Insomnia 12/15/21 12/16/21 warfarin 1 mg tablet 0.5 mg PO 1700 12/15/21 12/16/21 warfarin 6 mg tablet 6 mg PO 1700 12/15/21 12/16/21 Allergies Allergy/AdvReac Type Severity Reaction Status Date / Time No Known Allergies Allergy Verified 11/22/21 11:22 Review of Systems Review of Systems: A 10 system review of systems was completed on the patient and is negative except for what is stated in the HPI. Nursing and ancillary documentation was reviewed. [facility] Past Medical History Medical History CVA (cerebral vascular accident) Dementia History of CVA (cerebrovascular accident) History of seizures Surgical History Surgical History Surgical history unknown Family History Family History Unknown Unknown family medical history Social History Social History Social History: He resides at [facility]. The patient is listed as a full code. Patient was listed as being on the [facility] papers. Angelica is listed as the spouse in the emergency contact number. Cassandra Messer is listed as the daughter in his chart. Smoking packs per day: 0.5 Smoking cigarettes per day: 10.0 Years smoked: 50 Smoking pack-years: 25.00 Smoking status: Never smoker Second hand tobacco smoke exposure: No Alcohol intake: never Substance use: never Substance use type: does not use Gender identity (if verbalized by the patient): Male Spiritual care concerns: No Exam Narrative: GENERAL: Well-appearing, well-nourished, and in no acute distress. HEAD: Normocephalic, atraumatic. EYES: PERRLA and EOMI. ENT: Nares clear, no rhinorrhea or epistaxis. Mucous membranes moist. NECK: Supple. CHEST: Clear to auscultation. No respiratory distress. HEART: Regular rate and rhythm. No murmur heard. Normal peripheral pulses. ABDOMEN: Soft, nontender, nondistended, normal active bowel sounds. EXTREMITIES: Normal range of motion. No edema. SKIN: Warm, dry, no rash. NEURO: Patient alert per baseline. PSYCH: Normal mood and affect. Course Course Emergency Course: CT head and CT C-spine showed no evidence of acute abnormalities. The patient currently has no active bleeding. Patient did have a supratherapeutic INR the patient began 2.5 mg p.o. vitamin K and the patient will be instructed to hold his Coumadin dose. Vital Signs Vital signs: Vital Signs Temperature 36.4 C 08/06/22 01:23 Pulse Rate 65 08/06/22 01:23 Respiratory Rate 12 08/06/22 01:23 Blood Pressure 141/65 H 08/06/22 01:23 Pulse Oximetry 100
[2022-08-06 02:37] VITALS: BP 130/62; PULSE 65; RESP 16; O2SAT 98
[2022-08-06 03:33] LABS: Basophils Absolute Auto 0.1 K/mm3 (0.0-0.1); Basophils Percent Auto 0.8 % (0.2-1.2); Eosinophils Absolute Auto 0.2 K/mm3 (0-0.3); Eosinophils Percent Auto 2.7 % (0-4.4); Hematocrit 39.5 % (42.0-52.0); Hemoglobin 12.8 g/dL (14.0-18.0); Immature Granulocyte Absolute 0.04 K/mm3 (0.00-0.031); Immature Granulocyte Percent A 0.6 % (0-0.5); Lymphocytes Absolute Auto 2.05 K/mm3 (0.9-3.2); Lymphocytes Percent Auto 31.3 % (18.3-44.2); Mean Corpuscular HGB Conc 32.4 g/dl (32-36); Mean Corpuscular Hemoglobin 30.5 pg (26-34); Mean Platelet Volume 10.5 fl (7.4-10.4); Monocytes Absolute Auto 0.8 K/mm3 (0.1-0.6); Monocytes Percent Auto 12.2 % (2.6-8.5); Neutrophils Absolute Auto 3.4 K/mm3 (1.3-6.7); Neutrophils Percent Auto 52.4 % (45.5-73.1); Platelet Count Result 224 k/mm3 (150-375); Red Cell Distribution Width 13.6 % (11.5-14.5); White Blood Count 6.6 K/mm3 (4.5-10.0)
[2022-08-06 03:43] LABS: Alanine Aminotransferase 17 U/L (6-50); Albumin Level 4.1 g/dL (3.5-5.1); Alkaline Phosphatase 79 U/L (38-126); Anion Gap 10 mmol/L (8-16); Aspartate Amino Transferase 35 U/L (17-59); Bilirubin,Total 0.4 mg/dL (0.2-1.3); Blood Urea Nitrogen 16 mg/dL (9-20); Calcium 8.5 mg/dL (8.4-10.2); Carbon Dioxide 26 mmol/L (22-30); Chloride 105 mmol/L (98-107); Estimated Glomerular Filt Rate > 60; Glucose 77 mg/dL (65-110); Potassium 3.5 mmol/L (3.4-5.0); Sodium 141 mmol/L (137-145)
[2022-08-06 03:44] LABS: Prothrombin Time 53.9 Seconds (11.1-14.7)
[2022-08-06 03:48] LABS: INR 6.3
[2022-08-06] MEDS: PHYTONADIONE 2.5 MG TAB PO (04:27)
[2022-08-06 04:45] VITALS: BP 141/68; PULSE 69; RESP 16; O2SAT 100
--- NOTE | 2022-08-06 04:46 | PC.NURSE ---
called [facility] to request transport. ETA 2399
[2022-08-06 05:45] VITALS: BP 147/61; PULSE 45; RESP 18; O2SAT 97
[2022-08-06 06:45] VITALS: BP 109/44; PULSE 52; RESP 16; O2SAT 98
--- NOTE | 2022-08-06 06:59 | PC.NURSE ---
[facility] here.
== END 2022-08-06 07:11 ==
PROVIDERS: Emergency Provider Emergency Medicine
DX: S09.90XA Unspecified injury of head, initial encounter (principal); R79.1 Abnormal coagulation profile; Z79.01 Long term (current) use of anticoagulants; Z79.82 Long term (current) use of aspirin; W19.XXXA Unspecified fall, initial encounter; Y92.129 Unspecified place in nursing home as the place of occurrence of the external cause
CPT/HCPCS: 36415; 70450; 72125; 80053; 85025; 85610; 93005; 99284; A9270

== ENCOUNTER 2023-03-04 18:05 | Emergency (ER) | payer MEDICARE, MEDICAID, SELFPAY ==
[2023-03-04] VITALS (8 sets, daily range): BP systolic 150–161; BP diastolic 57–88; PULSE 55–70; RESP 16–21; TEMP 36.5; O2SAT 99–100
--- NOTE | ~2023-03-04 | CT_ITS ---
EXAMINATION: CT cervical spine wo con DATE: 03/04/2023 18:48 INDICATION: Head injury. TECHNIQUE: Computed tomography (CT) of the cervical spine was performed without intravenous contrast. Automated exposure control and iterative reconstruction technique were employed. The dose-length pro duct was 486.61 mGy-cm. COMPARISON: CT cervical spine 08/06/2022 FINDINGS: There is 16 degrees dextroscoliosis of cervical spine. There is mild kyphosis of cervical s pine. Vertebral body heights are normal. There is moderately decreased disc height at C2-3, mildly de creased disc height at C3-C4, severely decreased disc height at C4-C5 and C5-C6, and mildly decreased disc height at C6-C7. The following disc levels are specifically discussed: C2-C3: There is moderate bilateral uncovertebral joint osteoarthritis. There is mild bilateral facet joint osteoarthritis. There is mild left neural foraminal stenosis. There is mild central canal steno sis. C3-C4: There is mild bilateral uncovertebral joint osteoarthritis. There is mild bilateral facet join t osteoarthritis. There is mild bilateral neural foraminal stenosis. There is mild central canal sten osis. C4-C5: There is severe bilateral uncovertebral joint osteoarthritis. There is moderate right and mild left facet joint osteoarthritis. There is moderate bilateral neural foraminal stenosis. There is mil d central canal stenosis. C5-C6: There is severe bilateral uncovertebral joint osteoarthritis. There is moderate bilateral face t joint osteoarthritis. There is moderate bilateral neural foraminal stenosis. There is mild central canal stenosis. C6-C7: There is mild bilateral uncovertebral joint osteoarthritis. There is moderate bilateral facet joint osteoarthritis. There is mild bilateral neural foraminal stenosis. There is mild central canal stenosis. C7-T1: There is no uncovertebral joint osteoarthritis. There is severe bilateral facet joint osteoart hritis. There is mild bilateral neural foraminal stenosis. There is no central canal stenosis. IMPRESSION: 1. No fracture. 2. Severe cervical spondylosis. 3. Cervical dextroscoliosis. Reviewed, dictated and finalized at location E.
--- NOTE | ~2023-03-04 | CT_ITS ---
EXAMINATION: CT brain wo con DATE: 03/04/2023 18:46 INDICATION: Head injury. TECHNIQUE: Computed tomography (CT) of the head was performed without intravenous contrast. The mA wa s adjusted according to patient size. Iterative reconstruction technique was employed. The dose-lengt h product was 605.33 mGy-cm. COMPARISON: Head CT 08/06/2022 FINDINGS: There is chronic encephalomalacia in left temporal occipital region in the expected distrib ution of left posterior cerebral artery. There is an old infarct in right occipital lobe. There are s cattered areas of low attenuation in the cerebral white matter. There are old infarcts involving the bilateral basal ganglia and thalami. There is no intracranial hemorrhage, acute infarction, or abnorm al intracranial mass lesion. There is ex vacuo dilatation of left lateral ventricle. The orbits are n ormal. There is mild mucosal thickening in the paranasal sinuses. The mastoid air cells are normal. T here is cerumen in left external auditory canal. IMPRESSION: 1. Old infarcts involving the bilateral basal ganglia and thalami, right occipital lobe, and left tem poral occipital region. 2. Stable extensive nonspecific cerebral white matter disease, which likely represents chronic small vessel ischemic disease. Reviewed, dictated and finalized at location E. IMPRESSION: 1. Old infarcts involving the bilateral basal ganglia and thalami, right occipi tr lobe, and left temporal occipital region. 2. Stable extensive nonspecific cerebral white matter disease, which likely rep resents chronic small vessel ischemic disease.
[2023-03-04 18:51] LABS: Anion Gap 6 mmol/L (8-16); Blood Urea Nitrogen 16 mg/dL (9-20); Calcium 9.1 mg/dL (8.4-10.2); Carbon Dioxide 32 mmol/L (22-30); Chloride 104 mmol/L (98-107); Estimated CRCL calculation 86 ml/min; Estimated Glomerular Filt Rate > 60; Glucose 76 mg/dL (65-110); Potassium 3.8 mmol/L (3.4-5.0); Sodium 142 mmol/L (137-145)
[2023-03-04 18:58] LABS: Hematocrit 41.8 % (42.0-52.0); Hemoglobin 13.3 g/dL (14.0-18.0); Mean Corpuscular HGB Conc 31.8 g/dl (32-36); Mean Corpuscular Hemoglobin 29.5 pg (26-34); Mean Corpuscular Volume 92.7 fl (80-100); Mean Platelet Volume 10.2 fl (7.4-10.4); Platelet Count Result 278 k/mm3 (150-375); Red Blood Count 4.51 M/mm3 (4.6-6.20); Red Cell Distribution Width 14.6 % (11.5-14.5); White Blood Count 7.9 K/mm3 (4.5-10.0)
[2023-03-04 19:00] LABS: INR 1.4; Prothrombin Time 17.7 Seconds (11.1-14.7)
--- NOTE | 2023-03-04 19:13 | ED.FALL ---
HPI - Fall General Chief Complaint: Fall Stated Complaint: FALL/ HEAD INJURY Time Seen by Provider: 03/04/23 18:21 Source: EMS and RN notes reviewed Mode of arrival: EMS Limitations: dementia History of Present Illness HPI Narrative: 77-year-old with a history of dementia, CVA, seizure disorder was brought in from [facility] with complaints of fall. Patient was in the wheelchair for some unknown reason fell backwards and hit his head. No loss of consciousness. Related Data Home Medications Medication Instructions Recorded Confirmed memantine ER 28 mg-donepezil 10 mg 1 cap PO 1700 04/04/20 12/16/21 capsule sprinkle,ext.release 24 hr (Namzaric) aspirin 81 mg tablet 81 mg PO DAILY 11/12/20 12/15/21 cholecalciferol (vitamin D3) 1,250 1,250 mcg PO MONTHLY 11/12/20 12/15/21 mcg (50,000 unit) capsule amlodipine 5 mg tablet 5 mg PO DAILY 06/03/21 12/15/21 carbidopa 25 mg-levodopa 100 mg 1 tablet PO TID 06/03/21 12/15/21 tablet acetaminophen 1,000 mg PO BID 12/15/21 12/15/21 atorvastatin 40 mg tablet 40 mg PO DAILY 12/15/21 12/15/21 lorazepam 0.5 mg tablet 0.5 mg PO 1700 12/15/21 12/16/21 melatonin 3 mg BYMOUTH HS PRN Insomnia 12/15/21 12/16/21 warfarin 1 mg tablet 0.5 mg PO 1700 12/15/21 12/16/21 warfarin 6 mg tablet 6 mg PO 1700 12/15/21 12/16/21 Allergies Allergy/AdvReac Type Severity Reaction Status Date / Time No Known Allergies Allergy Verified 03/04/23 18:17 Review of Systems Review of Systems: All systems reviewed & are unremarkable except as noted in HPI and below Constitutional: Constitutional: Reports no additional constitutional complaints Eyes: Eyes: Reports no additional eye complaints ENT: Reports system reviewed and no additional complaints, except as documented Cardiovascular: Cardiovascular: Reports no additional cardiovascular complaints Respiratory: Respiratory: Reports no additional respiratory complaints Gastrointestinal: Gastrointestinal: Reports no additional gastrointestinal complaints Musculoskeletal: Musculoskeletal: Reports no additional musculoskeletal complaints PMFSH Past Medical History Medical History CVA (cerebral vascular accident) Dementia History of CVA (cerebrovascular accident) History of seizures Surgical History Surgical History Surgical history unknown Family History Family History Unknown Unknown family medical history Social History Social History Social History: He resides at [facility]. The patient is listed as a full code. Patient was listed as being on the senior living papers. Angelica is listed as the spouse in the emergency contact number. Cassandra Messer is listed as the daughter in his chart. Smoking packs per day: 0.5 Smoking cigarettes per day: 10.0 Years smoked: 50 Smoking pack-years: 25.00 Smoking status: Never smoker Second hand tobacco smoke exposure: No Alcohol intake: never Substance use: never Substance use type: does not use Occupation/Education: retired Gender identity (if verbalized by the patient): Male Spiritual care concerns: No Exam Narrative: GENERAL: Well-appearing, well-nourished, and in no acute distress. HEAD: Normocephalic, atraumatic. EYES: PERRLA and EOMI. NECK: Supple. C Collar in place CHEST: Clear to auscultation. No respiratory distress. HEART: Regular rate and rhythm. No murmur heard. Normal peripheral pulses. ABDOMEN: Soft, nontender, nondistended, normal active bowel sounds. EXTREMITIES: Normal range of motion. No edema. SKIN: Warm, dry, no rash. NEURO: No focal deficits. Alert PSYCH: Normal mood and affect. Course Course Emergency Course: Patient upon arrival to the ER has no complaints c-collar was
--- NOTE | 2023-03-04 20:47 | PC.NURSE ---
Called [facility] to inform that patient is being transferred back to facility t this time
== END 2023-03-04 20:51 ==
PROVIDERS: Emergency Provider Family Medicine
DX: S09.90XA Unspecified injury of head, initial encounter (principal); F03.90 Unspecified dementia, unspecified severity, without behavioral disturbance, psychotic disturbance, mood disturbance, and anxiety; Z86.73 Personal history of transient ischemic attack (TIA), and cerebral infarction without residual deficits; G40.909 Epilepsy, unspecified, not intractable, without status epilepticus; Z87.891 Personal history of nicotine dependence; Z79.01 Long term (current) use of anticoagulants; Z79.82 Long term (current) use of aspirin; M47.812 Spondylosis without myelopathy or radiculopathy, cervical region; W05.0XXA Fall from non-moving wheelchair, initial encounter
CPT/HCPCS: 36415; 70450; 72125; 80048; 85025; 85610; 99284

== ENCOUNTER 2023-09-27 05:02 | Emergency (ER) | payer MEDICARE, MEDICAID, SELFPAY ==
--- NOTE | ~2023-09-27 | CT_ITS ---
Noncontrast CT scan of the cervical spine Technique: Multiple contiguous axial [address] images of the cervical spine were obtained and rec onstructed in 2D sagittal and coronal planes on the acquisition scanner. Dose reduction technique was used on this scan by utilizing automated exposure control, adjustment of the mA and/or kV according to patient size. The dose-length product (DLP) was 485.85 mGy-cm. Clinical History: Pain COMPARISON: 03/04/2023 Findings: No fractures or dislocations. There is advanced degenerative disc narrowing at C4-C5 and C 5-C6. There is bilateral neural foraminal narrowing, right worse than left, at C4-C5. There is bilate ral neural foraminal narrowing at C5-C6. No prevertebral soft tissue swelling. Impression: No fracture or subluxation of the cervical spine. Stable degenerative spondylosis, worst at C4-C5 and C5-C6. Reviewed, dictated and finalized at [facility]. L ADMINISTRATOR Impression: No fracture or subluxation of the cervical spine. Stable degenerative spondylosis, worst at C4-C5 and C5-C6.
--- NOTE | ~2023-09-27 | CT_ITS ---
CT head without contrast Indication: Head injury COMPARISON: 03/04/2023 Technique: Serial scans were obtained through the brain without the administration of contrast. Dose reduction technique was used on this scan by utilizing automated exposure control and iterative recon struction technique. The dose-length product (DLP) was 605.33 mGy-cm. Findings: There is no evidence of intracranial hemorrhage, mass lesion, or acute infarct. Stable left occipital lobe encephalomalacia with ex vacuo dilatation of the atrium of the left lateral ventricle . Stable more focal insufflation the right occipital lobe. The ventricles and subarachnoid spaces are dilated, consistent with mild atrophy. Low attenuation regions are seen within the periventricular white matter bilaterally, likely representing changes from chronic microvascular ischemic disease. Th ere is no evidence of edema, mass effect or midline shift. The visualized paranasal sinuses and mas toid air cells are clear. Impression: No intracranial hemorrhage, mass, or acute infarct. Stable chronic bilateral occipital lobe infarcts, left more extensive than right, with associated ex vacuo dilatation of the atrium of the left lateral ventricle. Atrophy and chronic white matter changes, as above. Reviewed, dictated and finalized at location . CAL RESEARCH SCIENTIST Impression: No intracranial hemorrhage, mass, or acute infarct. Stable chronic bilateral occipital lobe infarcts, left more extensive than righ t, with associated ex vacuo dilatation of the atrium of the left lateral ventri bang. Atrophy and chronic white matter changes, as above.
[2023-09-27 05:00] VITALS: BP 149/70; PULSE 57; RESP 17; TEMP 36.9; O2SAT 100
--- NOTE | 2023-09-27 05:46 | ED.GENADULT ---
HPI - General Adult General Chief complaint: Fall Stated complaint: glf Time Seen by Provider: 09/27/23 05:08 History of Present Illness HPI narrative: patient is a 77-year-old gentleman who presents to emergency department with chief complaint of fall. Per the [facility] the patient rolled out of his bed earlier this evening they put him back in the bed but then realized that their policy was that he had to come to the ER for evaluation since he was on an anticoagulant. The patient does not remember rolling out of bed and has no complaints Related Data Home Medications Medication Instructions Recorded Confirmed memantine ER 28 mg-donepezil 10 mg 1 cap PO 1700 04/04/20 12/16/21 capsule sprinkle,ext.release 24 hr (Namzaric) aspirin 81 mg tablet 81 mg PO DAILY 11/12/20 12/15/21 cholecalciferol (vitamin D3) 1,250 1,250 mcg PO MONTHLY 11/12/20 12/15/21 mcg (50,000 unit) capsule amlodipine 5 mg tablet 5 mg PO DAILY 06/03/21 12/15/21 carbidopa 25 mg-levodopa 100 mg 1 tablet PO TID 06/03/21 12/15/21 tablet acetaminophen 1,000 mg PO BID 12/15/21 12/15/21 atorvastatin 40 mg tablet 40 mg PO DAILY 12/15/21 12/15/21 lorazepam 0.5 mg tablet 0.5 mg PO 1700 12/15/21 12/16/21 melatonin 3 mg BYMOUTH HS PRN Insomnia 12/15/21 12/16/21 warfarin 1 mg tablet 0.5 mg PO 1700 12/15/21 12/16/21 warfarin 6 mg tablet 6 mg PO 1700 12/15/21 12/16/21 Allergies Allergy/AdvReac Type Severity Reaction Status Date / Time No Known Allergies Allergy Verified 09/27/23 05:05 Review of Systems Review of Systems: A 10 system review of systems was completed on the patient and is negative except for what is stated in the HPI. Nursing and ancillary documentation was reviewed. [facility] Past Medical History Medical History CVA (cerebral vascular accident) Dementia History of CVA (cerebrovascular accident) History of seizures Surgical History Surgical History Surgical history unknown Family History Family History Unknown Unknown family medical history Social History Social History Social History: He resides at [facility]. The patient is listed as a full code. Patient was listed as being on the [facility] papers. Angelica is listed as the spouse in the emergency contact number. Cassandra Messer is listed as the daughter in his chart. Smoking packs per day: 0.5 Smoking cigarettes per day: 10.0 Years smoked: 50 Smoking pack-years: 25.00 Smoking status: Never smoker Second hand tobacco smoke exposure: No Alcohol intake: never Substance use: never Substance use type: does not use Occupation/Education: retired Gender identity (if verbalized by the patient): Male Spiritual care concerns: No Exam Narrative: GENERAL: Well-appearing, well-nourished, and in no acute distress. HEAD: Normocephalic, atraumatic. EYES: PERRLA and EOMI. ENT: Nares clear, no rhinorrhea or epistaxis. Mucous membranes moist. NECK: Supple. CHEST: Clear to auscultation. No respiratory distress. HEART: Regular rate and rhythm. No murmur heard. Normal peripheral pulses. ABDOMEN: Soft, nontender, nondistended, normal active bowel sounds. EXTREMITIES: Normal range of motion. No edema. SKIN: Warm, dry, no rash. NEURO: No focal deficits. Alert and pleasantly confused. PSYCH: Normal mood and affect. Course Vital Signs Vital signs: Vital Signs Temperature 36.9 C 09/27/23 05:00 Pulse Rate 57 L 09/27/23 05:00 Respiratory Rate 17 09/27/23 05:00 Blood Pressure 149/70 H 09/27/23 05:00 Pulse Oximetry 100 09/27/23 05:00 Oxygen Delivery Room Air 09/27/23 05:00 Temperature 36.9 C 09/27/23 05:00 Pulse Rate 62 09/27/23 06
[2023-09-27 06:11] VITALS: BP 148/94; PULSE 62; RESP 14; O2SAT 98
--- NOTE | 2023-09-27 06:40 | PC.NURSE ---
multiple attempts to call to [facility], no answer and no ability to leave voicemail
[2023-09-27 06:53] VITALS: BP 149/56; PULSE 53; RESP 16; O2SAT 99
--- NOTE | 2023-09-27 07:10 | PC.NURSE ---
Report given to FAWAD Andrea at this time.
== END 2023-09-27 07:30 ==
PROVIDERS: Emergency Provider Emergency Medicine
DX: S09.90XA Unspecified injury of head, initial encounter (principal); W06.XXXA Fall from bed, initial encounter; F03.90 Unspecified dementia, unspecified severity, without behavioral disturbance, psychotic disturbance, mood disturbance, and anxiety
CPT/HCPCS: 70450; 72125; 99284

== ENCOUNTER 2023-12-14 11:02 | Emergency (ER) | payer MEDICARE, MEDICAID, SELFPAY ==
[2023-12-14] VITALS (9 sets, daily range): BP systolic 123–137; BP diastolic 58–66; PULSE 60–82; RESP 13–19; TEMP 36.6; O2SAT 97–98
--- NOTE | ~2023-12-14 | CT_ITS ---
EXAMINATION: CT brain wo con DATE: 12/14/2023 13:00 INDICATION: Head injury. TECHNIQUE: Computed tomography (CT) of the head was performed without intravenous contrast. The mA wa s adjusted according to patient size. Iterative reconstruction technique was employed. The dose-lengt h product was 605.33 mGy-cm. COMPARISON: Head CT 09/27/2023 FINDINGS: There is an old infarct in left temporal occipital region. There is an old infarct in left thalamus. There are old infarcts in the bilateral basal ganglia. There is an old infarct in right par ietal occipital region. There are scattered areas of low attenuation in the cerebral white matter. Th ere is no intracranial hemorrhage, acute infarction, or abnormal intracranial mass lesion. There is e x vacuo dilatation of left lateral ventricle. There is mild mucosal thickening in the paranasal sinus es. The mastoid air cells are normal. There are orbits are normal. IMPRESSION: 1. Old infarcts in the brain. 2. Stable extensive nonspecific cerebral white matter disease, which likely represents chronic small vessel ischemic disease. Reviewed, dictated and finalized at location E. TRIC LOCOMOTIVE FIRER/FIREMAN IMPRESSION: 1. Old infarcts in the brain. 2. Stable extensive nonspecific cerebral white matter disease, which likely rep resents chronic small vessel ischemic disease.
--- NOTE | ~2023-12-14 | CT_ITS ---
EXAMINATION: CT cervical spine wo con DATE: 12/14/2023 13:00 INDICATION: Unwitnessed fall TECHNIQUE: Computed tomography (CT) of the cervical spine was performed without intravenous contrast. Automated exposure control and iterative reconstruction technique were employed. The dose-length pro duct was 443.71 mGy-cm. COMPARISON: 09/27/2023 FINDINGS: 20 degree cervical and upper thoracic dextrocurvature. Straightening of the normal cervical lordosis. Vertebral body heights are normal. No acute fracture. Severe disc height loss with degenerative endp late changes and severe bilateral uncovertebral osteoarthritis at C4-C5 and C5-C6. Small posterior di sc osteophyte complexes result in mild central canal stenosis at both levels. Multilevel mild to mode rate bilateral cervical facet osteoarthritis which contributes to multilevel neural foraminal stenosi s, moderate severity bilaterally at C4-C5 and C5-C6 and otherwise mild.. Small amount of atherosclero tic calcific location at the bilateral carotid bulbs. A couple subcentimeter right thyroid nodules. C ervical soft tissues are otherwise unremarkable. Visualized apices of lungs are clear. IMPRESSION: 1. Cervical dextroscoliosis with severe spondylosis. No acute osseous abnormality. Reviewed, dictated and finalized at location A. ROSE GROWER IMPRESSION: 1. Cervical dextroscoliosis with severe spondylosis. No acute osseous abnormali ty.
--- NOTE | 2023-12-14 12:42 | ED.FALL ---
HPI - Fall General Chief Complaint: Fall Stated Complaint: fall Time Seen by Provider: 12/14/23 12:05 History of Present Illness HPI Narrative: Patient is a 78-year-old male with a history of dementia presenting after a fall. Patient is coming from a nursing facility where he was noted to be found on the ground in front of his wheelchair. Concern for unwitnessed fall. On arrival, patient is alert and oriented x1 which is is baseline. Moving all extremities spontaneously. He denies any complaints. Related Data Home Medications Medication Instructions Recorded Confirmed memantine ER 28 mg-donepezil 10 mg 1 cap PO 1700 04/04/20 12/16/21 capsule sprinkle,ext.release 24 hr (Namzaric) aspirin 81 mg tablet 81 mg PO DAILY 11/12/20 12/15/21 cholecalciferol (vitamin D3) 1,250 1,250 mcg PO MONTHLY 11/12/20 12/15/21 mcg (50,000 unit) capsule amlodipine 5 mg tablet 5 mg PO DAILY 06/03/21 12/15/21 carbidopa 25 mg-levodopa 100 mg 1 tablet PO TID 06/03/21 12/15/21 tablet acetaminophen 1,000 mg PO BID 12/15/21 12/15/21 atorvastatin 40 mg tablet 40 mg PO DAILY 12/15/21 12/15/21 lorazepam 0.5 mg tablet 0.5 mg PO 1700 12/15/21 12/16/21 melatonin 3 mg BYMOUTH HS PRN Insomnia 12/15/21 12/16/21 warfarin 1 mg tablet 0.5 mg PO 1700 12/15/21 12/16/21 warfarin 6 mg tablet 6 mg PO 1700 12/15/21 12/16/21 Allergies Allergy/AdvReac Type Severity Reaction Status Date / Time No Known Allergies Allergy Verified 09/27/23 05:05 Review of Systems Review of Systems: All systems reviewed & are unremarkable except as noted in HPI and below PMFSH Past Medical History Medical History CVA (cerebral vascular accident) Dementia History of CVA (cerebrovascular accident) History of seizures Surgical History Surgical History Surgical history unknown Family History Family History Unknown Unknown family medical history Social History Social History Social History: He resides at [facility]. The patient is listed as a full code. Patient was listed as being on the correction papers. Angelica is listed as the spouse in the emergency contact number. Cassandra Messer is listed as the daughter in his chart. Smoking packs per day: 0.5 Smoking cigarettes per day: 10.0 Years smoked: 50 Smoking pack-years: 25.00 Smoking status: Never smoker Second hand tobacco smoke exposure: No Alcohol intake: never Substance use: never Substance use type: does not use Occupation/Education: retired Gender identity (if verbalized by the patient): Male Spiritual care concerns: No Exam Narrative: GENERAL: Elderly male lying in bed in no acute distress HEAD: Normocephalic, atraumatic. EYES: PERRLA and EOMI. ENT: Grossly unremarkable NECK: Supple. No midline tenderness of neck or back CHEST: Clear to auscultation. No respiratory distress. HEART: Regular rate and rhythm ABDOMEN: Soft, nontender, nondistended EXTREMITIES: Normal range of motion. No edema. SKIN: Warm, dry, no rash. No skin breakdown noted NEURO: Alert and oriented x1. Moves all extremities spontaneously PSYCH: Normal mood and affect. Course Vital Signs Vital signs: Vital Signs Temperature 97.9 F 12/14/23 10:59 Pulse Rate 75 12/14/23 10:59 Respiratory Rate 15 12/14/23 10:59 Blood Pressure 136/66 12/14/23 10:59 Pulse Oximetry 98 12/14/23 10:59 Oxygen Delivery Room Air 12/14/23 10:59 Temperature 97.9 F 12/14/23 10:59 Pulse Rate 75 12/14/23 10:59 Respiratory Rate 15 12/14/23 10:59 Blood Pressure 136/66 12/14/23 10:59 Pulse Oximetry 98 12/14/23 10:59 Oxygen Delivery Room Air 12/14/23 10:59 MDM - Fall MDM Narrative Medical decision m
--- NOTE | 2023-12-14 14:08 | PC.NURSE ---
Patient continues to remove pulse ox from finger.
== END 2023-12-14 15:09 ==
PROVIDERS: Emergency Provider Emergency Medicine
DX: Z04.3 Encounter for examination and observation following other accident (principal); F03.90 Unspecified dementia, unspecified severity, without behavioral disturbance, psychotic disturbance, mood disturbance, and anxiety; Z86.73 Personal history of transient ischemic attack (TIA), and cerebral infarction without residual deficits; R90.82 White matter disease, unspecified; M47.812 Spondylosis without myelopathy or radiculopathy, cervical region; Z87.891 Personal history of nicotine dependence; Z79.01 Long term (current) use of anticoagulants; Z79.82 Long term (current) use of aspirin; W19.XXXA Unspecified fall, initial encounter
CPT/HCPCS: 70450; 72125; 99284

== ENCOUNTER 2024-04-17 19:55 | Emergency (ER) | payer MEDICARE, SELFPAY ==
--- NOTE | ~2024-04-17 | CT_ITS ---
EXAMINATION: CT brain wo con DATE: 04/17/2024 21:02 INDICATION: Fall. TECHNIQUE: Computed tomography (CT) of the head was performed without intravenous contrast. The mA wa s adjusted according to patient size. Iterative reconstruction technique was employed. The dose-lengt h product was 605.33 mGy-cm. COMPARISON: Head CT 12/14/2023 FINDINGS: There is an old infarct in left cerebellum. There is an old infarct involving left temporal parietal occipital region. There is an old infarct in right parietal occipital region. There is an o ld infarct in left thalamus. There are old infarcts in the bilateral basal ganglia. There are scatter ed areas of low attenuation in the cerebral white matter. There is no intracranial hemorrhage, acute infarction, or abnormal intracranial mass lesion. There is ex vacuo dilatation of the lateral ventric les. The orbits are normal. There is mild mucosal thickening in the paranasal sinuses. The mastoid ai r cells are normal. There is cerumen in left external auditory canal. IMPRESSION: 1. Old infarcts in the brain. 2. Stable extensive nonspecific cerebral white matter disease, which likely represents chronic small vessel ischemic disease. Reviewed, dictated and finalized at location E. IMPRESSION: 1. Old infarcts in the brain. 2. Stable extensive nonspecific cerebral white matter disease, which likely rep resents chronic small vessel ischemic disease.
--- NOTE | ~2024-04-17 | CT_ITS ---
EXAMINATION: CT cervical spine wo con DATE: 04/17/2024 21:02 INDICATION: Fall. TECHNIQUE: Computed tomography (CT) of the cervical spine was performed without intravenous contrast. Automated exposure control and iterative reconstruction technique were employed. The dose-length pro duct was 555.66 mGy-cm. COMPARISON: CT cervical spine 12/14/2023 FINDINGS: There is 7 degrees dextrocurvature of cervical spine. There is mild kyphosis of cervical sp ine. There is mild chronic anterior wedging of T2 and T3 vertebral bodies. There is moderately decrea sed disc height at C2-C3, mildly decreased disc height at C3-C4, severely decreased disc height at C4 -C5 and C5-C6, and mildly decreased disc height at C6-C7. The following disc levels are specifically discussed: C2-C3: There is moderate bilateral uncovertebral joint osteoarthritis. There is mild bilateral facet joint osteoarthritis. There is mild bilateral neural foraminal stenosis. There is mild central canal stenosis. C3-C4: There is mild bilateral uncovertebral joint osteoarthritis. There is mild bilateral facet join t osteoarthritis. There is mild bilateral neural foraminal stenosis. There is mild central canal sten osis. C4-C5: There is severe bilateral uncovertebral joint osteoarthritis. There is mild bilateral facet krystin int osteoarthritis. There is moderate bilateral neural foraminal stenosis. There is mild central elizabeth l stenosis. C5-C6: There is severe bilateral uncovertebral joint osteoarthritis. There is mild bilateral facet krystin int osteoarthritis. There is mild right and moderate left neural foraminal stenosis. There is mild ce ntral canal stenosis. C6-C7: There is mild bilateral uncovertebral joint osteoarthritis. There is moderate right and mild l eft facet joint osteoarthritis. There is mild right neural foraminal stenosis. There is mild central canal stenosis. C7-T1: There is no uncovertebral joint osteoarthritis. There is severe bilateral facet joint osteoart hritis. There is mild bilateral neural foraminal stenosis. There is no central canal stenosis. IMPRESSION: 1. No fracture. 2. Severe cervical spondylosis. Reviewed, dictated and finalized at location E.
[2024-04-17 19:55] VITALS: BP 135/78; PULSE 82; RESP 15; TEMP 36.8; O2SAT 98
--- NOTE | 2024-04-17 21:16 | ED.FALL ---
HPI - Fall General Chief Complaint: Fall Stated Complaint: FALL Time Seen by Provider: 04/17/24 20:51 History of Present Illness HPI Narrative: 78-year-old male with history of Parkinson's disease dementia presents to the emergency department from [facility] via EMS for unwittnessed ground level fall around 1830 today. patient was found sitting on the ground. It is unknown if he hit his head or lost consciousness. The patient denies fall to me. He has no complaints and is not complaining of any pain anywhere. He is A&O x1 which is his baseline per chart review. He is not on any blood thinners. No evidence of trauma. Related Data Home Medications Medication Instructions Recorded Confirmed memantine ER 28 mg-donepezil 10 mg 1 cap PO 1700 04/04/20 12/16/21 capsule sprinkle,ext.release 24 hr (Namzaric) aspirin 81 mg tablet 81 mg PO DAILY 11/12/20 12/15/21 cholecalciferol (vitamin D3) 1,250 1,250 mcg PO MONTHLY 11/12/20 12/15/21 mcg (50,000 unit) capsule amlodipine 5 mg tablet 5 mg PO DAILY 06/03/21 12/15/21 carbidopa 25 mg-levodopa 100 mg 1 tablet PO TID 06/03/21 12/15/21 tablet acetaminophen 1,000 mg PO BID 12/15/21 12/15/21 atorvastatin 40 mg tablet 40 mg PO DAILY 12/15/21 12/15/21 lorazepam 0.5 mg tablet 0.5 mg PO 1700 12/15/21 12/16/21 melatonin 3 mg BYMOUTH HS PRN Insomnia 12/15/21 12/16/21 warfarin 1 mg tablet 0.5 mg PO 1700 12/15/21 12/16/21 warfarin 6 mg tablet 6 mg PO 1700 12/15/21 12/16/21 Allergies Allergy/AdvReac Type Severity Reaction Status Date / Time No Known Allergies Allergy Verified 09/27/23 05:05 Review of Systems Review of Systems: CONSTITUTIONAL: Denies fever, chills, or sweats. EYES: Denies visual changes, redness, or discharge. ENT: Denies rhinorrhea, congestion, sore throat, or otalgia. CARDIOVASCULAR: Denies chest pain, palpitations, or edema. RESPIRATORY: Denies cough or dyspnea. GASTROINTESTINAL: Denies abdominal pain, nausea, vomiting, or diarrhea. GENITOURINARY: Denies dysuria or hematuria. SKIN: Denies rash or itching. MUSCULOSKELETAL: Denies back pain, joint pain, or myalgia. NEUROLOGIC: Denies headache, numbness, or weakness. PSYCHIATRIC: Denies anxiety or depression. [facility] Past Medical History Medical History CVA (cerebral vascular accident) Dementia History of CVA (cerebrovascular accident) History of seizures Surgical History Surgical History Surgical history unknown Family History Family History Unknown Unknown family medical history Social History Social History Social History: He resides at [facility]. The patient is listed as a full code. Patient was listed as being on the detention papers. Angelica is listed as the spouse in the emergency contact number. Cassandra Messer is listed as the daughter in his chart. Smoking packs per day: 0.5 Smoking cigarettes per day: 10.0 Years smoked: 50 Smoking pack-years: 25.00 Smoking status: Never smoker Second hand tobacco smoke exposure: No Alcohol intake: never Substance use: never Substance use type: does not use Occupation/Education: retired Gender identity (if verbalized by the patient): Male Spiritual care concerns: No Exam Narrative: GENERAL: Well-appearing, well-nourished, and in no acute distress. HEAD: Normocephalic, atraumatic. EYES: PERRLA and EOMI. ENT: Nares clear, no rhinorrhea or epistaxis. Mucous membranes moist. NECK: no midline cervical spinous tenderness, step-offs or deformities BACK: no midline thoracolumbar spinous tenderness, step-offs or deformities CHEST: Clear to auscultation. No respiratory distress. HEART: Regular rate and rhythm. No murmur heard. Normal periphe
[2024-04-17 21:38] VITALS: BP 136/67; PULSE 67; RESP 14; O2SAT 96
== END 2024-04-17 22:25 ==
PROVIDERS: Emergency Provider Physician Assistant
DX: G20.A1 Parkinson's disease without dyskinesia, without mention of fluctuations (principal); F03.90 Unspecified dementia, unspecified severity, without behavioral disturbance, psychotic disturbance, mood disturbance, and anxiety; G40.909 Epilepsy, unspecified, not intractable, without status epilepticus; Z86.73 Personal history of transient ischemic attack (TIA), and cerebral infarction without residual deficits; W19.XXXA Unspecified fall, initial encounter
CPT/HCPCS: 70450; 72125; 99284